=== PATIENT | male | born 1980 | race Caucasian/White ===

== ENCOUNTER 2022-07-18 08:00 | Outpatient (RCR) | payer OTHER, SELFPAY ==
[2022-07-04 11:55] VITALS: BP 112/70; PULSE 96; TEMP 36.9
[2022-07-04 12:22] VITALS: BMI 31.1
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
[2022-07-04 15:31] LABS: Amphetamine Screen Urine Not Detected (Not Detect); Barbiturates, Urine Not Detected (Not Detect); Benzodiazepines Screen Urine Not Detected (Not Detect); Cannabinoid Screen Urine Not Detected (Not Detect); Cocaine Screen Urine Not Detected (Not Detect); Fentanyl, urine Not Detected (Not Detect); Opiate Screen Urine Not Detected (Not Detect); Phencyclidine Screen Urine Not Detected (Not Detect)
--- NOTE | 2022-07-05 15:56 | HO.PHPIOP ---
Case opened in treatment team.
--- NOTE | 2022-07-06 14:43 | HO.PHPIOP ---
Met with pt to review schedule and treatment plan.
--- NOTE | 2022-07-10 12:24 | P.PNPSP_ITS ---
Subjective Subjective Date of Service: 07/10/22 Reason For Visit: severe major depression Medical Problems Affecting Mental Status: No Interim History: Continues with depressed mood, but slightly improved. describes as, ?a little bit better, I have a glimmer of hope now ?. No SI/HI, no safety concerns. No side effects from lamotrigine. Needs a letter for short-term disability/work. Finding groups helpful. Medication Compliance: Yes Side effects from medications: No Attending Groups: Yes Review of Systems Acute medical concerns: No Medical Review of Systems: unchanged Review of Systems Review of Systems Yes all other systems are reviewed and are negative Constitutional: Reports no additional constitutional complaints Mental Status Exam Mental Status Exam Narrative: NAD Patient Appearance: Well Grooomed Patient Orientation: Person, Place, Time and Situation Level of Consciousness: Appropriate and Alert Patient Behavior: Appropriate and Good Eye Contact Mood Description: Depressed Affect Description: Depressed Patient Cognition Impaired: No Ability to Follow Directions: Good Speech Pattern: Clear and Appropriate Memory Description: Intact Hallucinations: None Delusions: Not Present Thought Process: Intact Thought Content: positive for Intact and positive for Obsessional Thoughts Depressive Symptoms: Increased Anxiety, Diff. Making Decisions, Sleeping More Than Usual, Loss of Int. in Activity, Isolating-Friends/Family, Feelings of Guilt, Unhappiness, Increased Fatigue, Loss of Energy and Difficulty Concentrating Judgement: Fair Diagnostics Vital Signs (24Hr): BMI result Body Mass Index 31.1 Assessment & Plan Assessment & Plan (1) Major depressive disorder, recurrent severe without psychotic features: Status: Acute Code(s): F33.2 - Major depressive disorder, recurrent severe without psychotic features Assessment and Plan: Continues with depressed mood, but slightly improved. describes as, ?a little bit better, I have a glimmer of hope now ?. No SI/HI, no safety concerns. Less obsessive thoughts. No side effects from lamotrigine, willing to continue with titration upward. Dosing schedule reviewed. Discussed Abilify and Seroquel, as they are both in same medication class. He is finding them both useful at this time, we discussed lowering dose of Abilify. He would rather remain on this dose at present, as he is beginning to feel slight improvement. No side effects reported. No crying spells reported. (2) Alcohol use disorder, severe, in sustained remission: Status: Acute Code(s): F10.21 - Alcohol dependence, in remission Assessment and Plan: No concerns reported regarding abstinence/recovery. (3) OCD (obsessive compulsive disorder): Status: Acute Code(s): F42.9 - Obsessive-compulsive disorder, unspecified Plan 1. Continue with current [facility] plan of care. 2. Continue with medications as prescribed. 3. Follow-up as per protocol. Patient educated on: diagnosis, medication risk/benefits and therapeutic strategies Informed Consent: understands Reason for contiued partial hosp. stay Substantial Risk for: harm to self and inability to function Certification I certify that partial hospital treatment is medically necessary due to the symptoms and problems resulting from the patient's mental illness and the failure to treat the patient at the partial hospital level of care would likely result in the patient requiring inpatient psychiatric care which could not be prevented at a less intensive level of care. Total time managing care of this patient today _20___ minutes. Discharge Plan Discharge Attending provider: Kike David Medications: New lamotrigine 25 mg tablet 25 mg PO DAILY 14 Days Qty: 14 0RF lorazepam 0.5 mg tablet 0.5 mg PO TID PRN (Reason: anxiety) Qty: 42 0RF bupropion HCl [Wellbutrin XL] 300 mg tablet extended release 24 hr 300 mg PO QAM Qty: 14 0RF quetiapine 300 mg tablet 300 mg PO BEDTIME Qty: 14 0RF lamotrigine 25 mg tablet 50 mg PO DAILY 14 Days Qty: 28 0RF Rx Instructions: AFTER Completion of lamotrigine 25mg daily for 14 days, START lamotrigine 50mg daily for 14 days. lamotrigine 100 mg tablet 100 mg PO DAILY Qty: 30 0RF Rx Instructions: AFTER Completion of lamotrigine 50mg daily for 14 days, START lamotrigine 100mg daily No Action aripiprazole 10 mg tablet 1 tab PO DAILY Stand Alone Forms: Patient Portal Discharge page Patient Education: Lamotrigine (By mouth)
--- NOTE | 2022-07-18 15:54 | P.PNPSP_ITS ---
Subjective Subjective Date of Service: 07/18/22 Reason For Visit: severe major depression Medical Problems Affecting Mental Status: No Interim History: Patient feels overwhelmed. Reports SI in his driveway last night, with the plan. Reports he did not act on it, continues with passive SI, no intent or plan. Rates depression as 8 or 9 on a scale 1-10. Poor sleep, anhedonia. Reports OCD symptoms subsiding. Medication Compliance: Yes Side effects from medications: No Attending Groups: Yes Review of Systems Acute medical concerns: No Medical Review of Systems: unchanged Review of Systems Review of Systems Yes all other systems are reviewed and are negative Constitutional: Reports no additional constitutional complaints Mental Status Exam Mental Status Exam Narrative: Tearful, crying throughout encounter. Passive SI, no intent or plan. Reports did have plan last evening, did not act. Reports that he feels safe today. Patient Appearance: Well Grooomed Patient Orientation: Person, Place, Time and Situation Level of Consciousness: Appropriate Patient Behavior: Appropriate, Anxious, Good Eye Contact and Crying Mood Description: Depressed Affect Description: Depressed and Anxious Patient Cognition Impaired: No Ability to Follow Directions: Good Speech Pattern: Clear and Appropriate Memory Description: Intact Hallucinations: None Delusions: Not Present Thought Process: Intact Thought Content: positive for Intact, positive for Obsessional Thoughts and positive for Suicidal Ideation (Passive, no intent or plan.) Depressive Symptoms: Increased Anxiety, Diff. Making Decisions, Sleeping More Than Usual, Loss of Int. in Activity, Feelings of Guilt, Unhappiness, Increased Fatigue, Loss of Energy and Difficulty Concentrating Judgement: Good Diagnostics Vital Signs (24Hr): BMI result Body Mass Index 31.1 Assessment & Plan Assessment & Plan (1) Major depressive disorder, recurrent severe without psychotic features: Status: Acute Code(s): F33.2 - Major depressive disorder, recurrent severe without psychotic features Assessment and Plan: Continues with depressed mood an affect, crying. Feels overwhelmed. Discussed possible crisis eval. He states that although he did have thoughts of SI last evening with the plan, states that he did not have any intention. States that he does feel safe today, although continues with some passive SI. Saw his psychiatrist yesterday, she kept him on same medications for time being. Has therapy appointment set up for Saturday. We discussed possibility of returning to program if continues to feel overwhelmed and depressed, or crisis of al for possible inpatient stay. He states that he has the crisis number, and that if any time he feels unsafe, he will call them or come to the ER for evaluation. Reports that he does feel safe for discharge from [facility] at this time. (2) Alcohol use disorder, severe, in sustained remission: Status: Acute Code(s): F10.21 - Alcohol dependence, in remission Assessment and Plan: Has been participating in substance use groups while here. (3) OCD (obsessive compulsive disorder): Status: Acute Code(s): F42.9 - Obsessive-compulsive disorder, unspecified Assessment and Plan: Reports that OCD has lessened. Plan 1. Patient discharging from [facility] at this time, appears stable. 2. Patient to follow-up with outpatient providers going forward. 3. Patient was agreeable to calling crisis if at any time feels unsafe. Patient educated on: diagnosis, medication risk/benefits and therapeutic strategies Informed Consent: understands Reason for contiued partial hosp. stay Substantial Risk for: stable for discharge Certification I certify that partial hospital treatment is medically necessary due to the symptoms and problems resulting from the patient's mental illness and the failure to treat the patient at the partial hospital level of care would likely result in the patient requiring inpatient psychiatric care which could not be prevented at a less intensive level of care. Total time managing care of this patient today _30___ minutes. Discharge Plan Discharge Attending provider: Kike David Additional Instructions: [facility] walk in clinic [address] [place] [address]. Call for appointment. [phone]. Medications: New lamotrigine 25 mg tablet 25 mg PO DAILY 14 Days Qty: 14 0RF lorazepam 0.5 mg tablet 0.5 mg PO TID PRN (Reason: anxiety) Qty: 42 0RF bupropion HCl [Wellbutrin XL] 300 mg tablet extended release 24 hr 300 mg PO QAM Qty: 14 0RF quetiapine 300 mg tablet 300 mg PO BEDTIME Qty: 14 0RF lamotrigine 25 mg tablet 50 mg PO DAILY 14 Days Qty: 28 0RF Rx Instructions: AFTER Completion of lamotrigine 25mg daily for 14 days, START lamotrigine 50mg daily for 14 days. lamotrigine 100 mg tablet 100 mg PO DAILY Qty: 30 0RF Rx Instructions: AFTER Completion of lamotrigine 50mg daily for 14 days, START lamotrigine 100mg daily bupropion HCl 300 mg tablet extended release 24 hr 300 mg PO QAM Qty: 30 0RF quetiapine 300 mg tablet 300 mg PO BEDTIME Qty: 30 0RF No Action aripiprazole 10 mg tablet 1 tab PO DAILY Stand Alone Forms: Patient Portal Discharge page Patient Education: Lamotrigine (By mouth), Depression (DC), Obsessive Compulsive Disorder (DC)
== END 2022-07-18 23:59 | disposition home or self-care (01) ==
LOC: HO.PHPA 08:00
PROVIDERS: Nurse Practitioner Psychiatric/Mental Health; Visit Provider Psychiatry & Neurology Psychiatry
DX: F33.2 Major depressive disorder, recurrent severe without psychotic features (principal); F10.21 Alcohol dependence, in remission; Z79.899 Other long term (current) drug therapy
CPT/HCPCS: 80307; 90791; 90853

== ENCOUNTER 2022-07-20 14:32 | Inpatient (IN) | payer OTHER, SELFPAY ==
--- NOTE | 2022-07-20 | ECG_ITS ---
Test Reason : MEDICAL CLEARANCE Blood Pressure : / mmHG Vent. Rate : 072 BPM Atrial Rate : 072 BPM P-R Int : 158 ms QRS Dur : 090 ms QT Int : 392 ms P-R-T Axes : 027 -09 024 degrees QTc Int : 429 ms Normal sinus rhythm Normal ECG No previous ECGs available Referred By: Mara Osman Electronically Signed By:Bret Medellin
[2022-07-20 14:47] VITALS: BP 160/99; PULSE 87; RESP 16; TEMP 36.8; O2SAT 98; BMI 30.7
--- NOTE | 2022-07-20 15:21 | ED.PSYCH ---
HPI - Psych General Chief Complaint: Psychiatric Symptoms Stated Complaint: Crisis Eval Time Seen by Provider: 07/20/22 14:51 Source: patient Mode of arrival: ambulatory Limitations: no limitations History of Present Illness HPI Narrative: 41-year-old male with a history of OCD, depression, anxiety presents with depression, suicidal thoughts. Patient reports he had plans to hook his garden hose up to the exhaust of his car. No HI, hallucinations, substance use. No physical complaints. Patient reports he was admitted Silvina Jimenez to [facility] in the being of June. He has been doing partial since his release. They did increase the dosage of his Seroquel, Wellbutrin, Abilify a Silvina Jimenez. They also added Lamictal several weeks ago for continued symptoms of depression. Related Data Home Medications Medication Instructions Recorded Confirmed aripiprazole 10 mg tablet 1 tab PO DAILY 07/04/22 07/04/22 Previous Rx's Medication Instructions Recorded bupropion HCl 300 mg 24 hr tablet, 300 mg PO QAM #14 tabs 07/04/22 extended release (Wellbutrin XL) lamotrigine 25 mg tablet 25 mg PO DAILY 14 days #14 tabs 07/04/22 lorazepam 0.5 mg tablet 0.5 mg PO TID PRN anxiety #42 tabs 07/04/22 quetiapine 300 mg tablet 300 mg PO BEDTIME #14 tabs 07/04/22 lamotrigine 100 mg tablet 100 mg PO DAILY #30 tabs 07/10/22 lamotrigine 25 mg tablet 50 mg PO DAILY 14 days #28 tabs 07/10/22 bupropion HCl 300 mg 24 hr tablet, 300 mg PO QAM #30 tabs 07/13/22 extended release quetiapine 300 mg tablet 300 mg PO BEDTIME #30 tabs 07/13/22 Allergies Allergy/AdvReac Type Severity Reaction Status Date / Time Penicillins [PCN] Allergy Rash Verified 07/04/22 11:54 Review of Systems Review of Systems: Yes all other systems are reviewed and are negative Constitutional: Constitutional: Reports no additional constitutional complaints, Denies body ache(s), Denies chills, Denies fever(s), Denies headache(s) and Denies weakness Eyes: Eyes: Reports no additional eye complaints and Denies change in vision ENT: Reports system reviewed and no additional complaints, except as documented, Denies dizziness, Denies headache(s), Denies nasal congestion, Denies nasal discharge and Denies neck pain Cardiovascular: Cardiovascular: Reports no additional cardiovascular complaints, Denies chest pain, Denies leg edema and Denies dyspnea Respiratory: Respiratory: Reports no additional respiratory complaints, Denies cough and Denies dyspnea Gastrointestinal: Gastrointestinal: Reports no additional gastrointestinal complaints, Denies abdominal pain, Denies diarrhea, Denies nausea and Denies vomiting Genitourinary: Genitourinary: Denies urinary incontinence Musculoskeletal: Musculoskeletal: Reports no additional musculoskeletal complaints, Denies back pain, Denies arthralgias, Denies joint swelling, Denies neck pain, Denies numbness and Denies tingling Integumentary/Breasts: Skin/Breast: Reports system reviewed and no additional complaints, except as docu and Denies rash Neurologic: Reports system reviewed and no additional complaints, except as documented, Denies Abnormal speech present, Denies dizziness, Denies headache(s), Denies numbness, Denies tingling and Denies weakness Psychiatric: Psychiatric: Reports anxiety, Reports depression, Denies homicidal ideation and Reports suicidal ideation [facility] Past Medical History Attestation statement: The following information was validated with the patient. Source: old records reviewed and nursing notes reviewed Medical History Abdominal hernia No known health problems Social History Social History Household Members: Significant Other and Children Tobacco use type: Smokeless Tobacco Advance Directives: No Advance Directives Information Provided: No Physical Exam Vital Signs: Vital Signs: Last Vital Signs Temp 97.6 F 07/20/22 17:30 Pulse 89 07/20/22 17:30 Resp 16 07/20/22 17:30 BP 174/94 H 07/20/22 17:30 Pulse Ox 98 07/20/22 17:30 O2 Del Method 07/20/22 17:30 BMI result Body Mass Index 30.7 Const: General: cooperative, healthy appearing, comfortable and no acute distress Orientation/consciousness: patient oriented x3 Limitations: no limitations HEENT: Head: Yes normal to inspection Ears: hearing grossly normal bilaterally General nose exam: Normal external nose present Face and sinus: Yes normal facial exam Mouth: Normal oral and palatal mucosa present Throat: Yes posterior oropharynx normal Eyes: General: appearance normal, both eyes and all related structures Pupils: Equal, round and reactive pupils present Neck: Neck: Yes normal visual inspection Chest: Chest palpation & inspection: normal inspection of the chest Resp: Effort & Inspection: normal respiratory effort Auscultation: clear to auscultation bilaterally Cardio: Rate: regular rate Rhythm: regular rhythm Peripheral pulses: Peripheral pulses 2+ throughout GI: Inspection: Yes normal to inspection Palpation (GI): Soft to palpation and nontender Auscultation: normal bowel sounds Back/Spine/Pelvis: Thoracic/Lumbar Spine: thoracic and lumbar spine normal to inspection Skin: General skin exam: no rashes or lesions noted Neuro: General: patient oriented x3, no focal motor deficits and normal sensation to monofilament Cranial nerves: Yes Equal, round and reactive pupils present Cognition (Neuro): normal cognition Speech: No Abnormal speech present Gait exam (Neuro): Normal gait present Motor exam (neuro): 5/5 motor strength present throughout Extrem: General: Yes normal to inspection Course Course Course Narrative: ion Medical Decision Making Medical Decision Making [facility] Narrative: 41-year-old male with a history of OCD, depression, anxiety presents with reports of increasing depression and suicidal thoughts. No physical complaints. No concern for acute ingestion or trauma. Will obtain labs, drug screen, COVID screen Patient will need crisis consultation once medically cleared Differential Diagnosis Differential Diagnoses: The differential diagnosis associated with the presentation includes Depression Consult Healthcare Provider Management of the patient was discussed with: Behavioral Health Provider Patient was seen by crisis. Plan is for Section 12 bed search. Patient placed in physician observation pending disposit Lab Data [facility] Lab Attestation statement: I reviewed the patient's lab results. 07/20/22 15:37 Labs: Lab Results 07/20/22 07/20/22 07/20/22 Range/Units 15:37 15:37 15:54 Sodium 140 (135-145) mmol/L Potassium 4.1 (3.3-5.1) mmol/L Chloride 106 (96-108) mmol/L Carbon Dioxide 26 (22-29) mmol/L Anion Gap 12 (12-20) BUN 13 (9-16) mg/dL Creatinine 0.94 (0.5-1.4) mg/dL Estim Creat Clear Calc 125.7 Estimated GFR > 60 Random Glucose 88 (60-115) mg/dL Calcium 9.4 (8.4-10.2) mg/dL Total Bilirubin 0.9 (0.0-1.0) mg/dL Direct Bilirubin 0.2 (0.0-0.5) mg/dL AST 28 (5-37) U/L ALT 55 H (0-40) U/L Alkaline Phosphatase 98 (39-117) U/L Total Protein 7.0 (6.5-8.0) g/dL Albumin 4.4 (3.5-5.0) g/dL Salicylates < 5.0 L (15-30) mg/dL Urine Opiates Screen Not Detected (Not Detect) Urine Fentanyl Screen Not Detected (Not Detect) Acetaminophen < 17 (<30) mcg/mL Ur Barbiturates Screen Not Detected (Not Detect) Ur Phencyclidine Scrn Not Detected (Not Detect) Ur Amphetamines Screen Not Detected (Not Detect) U Benzodiazepines Scrn Not Detected (Not Detect) Urine Cocaine Screen Not Detected (Not Detect) U Marijuana (THC) Screen Not Detected (Not Detect) Ethyl Alcohol < 10 mg/dL COVID-19 (LEA) Negative (Negative) COVID-19 Clin Com See Note Discharge Plan Discharge Clinical Impression: Major depressive disorder, recurrent severe without psychotic features Patient Disposition: Still a Patient Prescriptions: No Action lamotrigine 25 mg tablet 25 mg PO DAILY 14 Days Qty: 14 0RF lorazepam 0.5 mg tablet 0.5 mg PO TID PRN (Reason: anxiety) Qty: 42 0RF bupropion HCl [Wellbutrin XL] 300 mg tablet extended release 24 hr 300 mg PO QAM Qty: 14 0RF quetiapine 300 mg tablet 300 mg PO BEDTIME Qty: 14 0RF aripiprazole 10 mg tablet 1 tab PO DAILY lamotrigine 25 mg tablet 50 mg PO DAILY 14 Days Qty: 28 0RF Rx Instructions: AFTER Completion of lamotrigine 25mg daily for 14 days, START lamotrigine 50mg daily for 14 days. lamotrigine 100 mg tablet 100 mg PO DAILY Qty: 30 0RF Rx Instructions: AFTER Completion of lamotrigine 50mg daily for 14 days, START lamotrigine 100mg daily bupropion HCl 300 mg tablet extended release 24 hr 300 mg PO QAM Qty: 30 0RF quetiapine 300 mg tablet 300 mg PO BEDTIME Qty: 30 0RF Interventions: [place]-Suicide Risk Severity Scale Last Done: 07/20/22 17:53
[2022-07-20 15:55] LABS: COVID-19 Test Negative (Negative); IDNOW Serial# 6674DD1D
[2022-07-20 16:04] LABS: Acetaminophen LAB < 17 mcg/mL (<30); Alanine Aminotransferase 55 U/L (0-40); Albumin Level 4.4 g/dL (3.5-5.0); Alkaline Phosphatase 98 U/L (39-117); Anion Gap 12 (12-20); Aspartate Amino Transferase 28 U/L (5-37); Bilirubin Direct 0.2 mg/dL (0.0-0.5); Bilirubin Total 0.9 mg/dL (0.0-1.0); Blood Urea Nitrogen 13 mg/dL (9-16); Calcium 9.4 mg/dL (8.4-10.2); Carbon Dioxide 26 mmol/L (22-29); Chloride 106 mmol/L (96-108); Creatinine Clr Calc Pharmacy 125.7; Estimated Glomerular Filt Rate > 60; Ethanol < 10 mg/dL; Glucose Random 88 mg/dL (60-115); Potassium 4.1 mmol/L (3.3-5.1); Salicylate < 5.0 mg/dL (15-30); Sodium 140 mmol/L (135-145)
[2022-07-20 16:14] LABS: Amphetamine Screen Urine Not Detected (Not Detect); Barbiturates, Urine Not Detected (Not Detect); Benzodiazepines Screen Urine Not Detected (Not Detect); Cannabinoid Screen Urine Not Detected (Not Detect); Cocaine Screen Urine Not Detected (Not Detect); Fentanyl, urine Not Detected (Not Detect); Opiate Screen Urine Not Detected (Not Detect); Phencyclidine Screen Urine Not Detected (Not Detect)
[2022-07-20 17:30] VITALS: BP 174/94; PULSE 89; RESP 16; TEMP 36.4; O2SAT 98
[2022-07-20] MEDS: QUEtiapine Fumarate 100 MG TABLET 150 MG PO (20:28)
[2022-07-20] MEDS: Nicotine Polacrilex 2 MG GUM 4 MG BUCCAL (20:28)
[2022-07-20 21:26] LABS: MANUAL DIFF FLAG NO
[2022-07-20 21:27] LABS: Basophils Percent Auto 0.4 % (0-2); Eosinophils Absolute Auto 0.2 X10*3/uL (0.0-0.4); Hematocrit 46.1 % (42.0-52.0); Hemoglobin 16.7 g/dl (14.0-18.0); Imm Gran Abs Auto 0.01 X10*3/uL (0.00-0.03); Imm Gran Pct Auto 0.1 % (0.0-0.4); Lymphocytes Absolute Auto 2.1 X10*3/uL (1.2-4.9); Lymphocytes Percent Auto 28.2 % (20-40); Mean Corpuscular HGB Conc 36.2 g/dl (31.0-36.0); Mean Corpuscular Hemoglobin 31.4 pg (27.0-33.0); Mean Corpuscular Volume 86.7 fL (80.0-98.0); Mean Platelet Volume 9.8 fL (9.4-12.4); Monocytes Absolute Auto 0.5 X10*3/uL (0.1-1.2); Monocytes Percent Auto 7.1 % (2-11); Neutrophils Absolute Auto 4.6 x10*3/uL (2.0-8.3); Neutrophils Percent Auto 62.2 % (45-73); Platelet Count 190 X10*3/uL (160-400); Red Blood Count 5.32 X10*6/uL (4.60-5.80); Red Cell Distribution Width 11.4 % (11.0-16.0); White Blood Count 7.4 X10*3/uL (4.8-10.8)
--- OUTSIDE RECORDS SUMMARY | 2022-07-20 21:51 | XMS_ITS | Continuity of Care Document ---
:1980 Author Organization [facility] Address [address] [place] [address]- Care Team Providers Name Role Phone Silvia VANG, Lisa Jain Primary Care Physician Encounter [facility] [id number] Date(s): 07[facility] [address] [place] [address] Attending Physician: Romana Gutiérrez Admitting Physician: Romana Gutiérrez Referring Physician: AdmtrRomana Allergies, Adverse Reactions, Alerts Substance Reaction Severity Status penicillin V potassium rash Active Immunizations Given and Recorded Vaccine Date Status Refusal Reason influenza virus vaccine, inactivated 05/19/14 Given influenza virus vaccine, inactivated 05/02/13 Given Tet/Diphth/Acel, Pertussis (oldterm) 09/24/11 Given Medications SEROquel 200 mg oral tablet 200 mg, 1, tablet, By Mouth, Daily at bedtime, # 30 tablet, Refills 3, Tot. Refills 3, Maintenance, 06/10/17 15:34:51, Route to Pharmacy Electronically, [id number], [facility] Start Date: 06/10/17 Stop Date: 10/08/17 Status: OrderedWellbutrin SR 150 mg/12 hours oral tablet, extended release 1 tablet = 150 mg, By Mouth, Daily, # 30 tablet, 3 Refills, Maintenance, 06/10/17 15:34:53 Start Date: 06/10/17 Stop Date: 10/08/17 Status: Ordered Problem List Condition Effective Dates Status Health Status Informant Adjustment Disorder with Mixed Anxiety Active and Depressed Mood(Confirmed) Allergic rhinitis(Confirmed) Active Anxiety depression(Confirmed) Active 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
--- OUTSIDE RECORDS SUMMARY | 2022-07-20 21:51 | XMS_ITS | Continuity of Care Document ---
:1980 Author Organization [facility] Address [address] [place] [id number]- Care Team Providers Name Role Phone Silvia VANG, Lisa Jian Primary Care Physician Encounter [facility] Date(s): 06/15/19 - 06/15/[address] [address]- [facility] Encounter Diagnosis Ventral hernia (Final) - 06/15/19 Ventral hernia (Final) - 06/15/19 Discharge Disposition: A-D/C Home Attending Physician: Tres Castillo MD Admitting Physician: Tres Castillo MD Referring Physician: Not on Staff, Referring MD Allergies, Adverse Reactions, Alerts Substance Reaction Severity [...] Maintenance, 06/10/17 15:34:51, Route to Pharmacy Electronically, [id number], [facility] Start Date: 06/10/17 [...] remission(Confirmed) Depressive disorder, major, recurrent Active episode(Confirmed) Vital Signs Most recent to oldest [Reference Range]: 1 2 Height 178 cm 178 cm (06/15/19 2:40 PM) (06/15/19 2:30 PM) Weight 101.2 kg (06/15/19 2:40 PM) Oxygen Saturation [94-100 %] 98 % 100 % (06/15/19 2:40 PM) (06/15/19 2:29 PM) Pulse Rate [55-90 bpm] 86 bpm 95 bpm (06/15/19 2:40 PM) *H* (06/15/19 2:29 PM) Body Mass Index [18.5-24.99] 31.94 *>HHI* (06/15/19 2:40 PM) Blood Pressure [90-138/55-84 mm Hg] 160/106 mm Hg *H* (06/15/19 2:40 PM) Respiratory Rate [16-30 br/min] 16 br/min 20 br/mi n (06/15/19 4:57 PM) (06/15/19 2:40 PM) Temperature [96.8-100.4 DegF] 97.7 DegF (06/15/19 2:40 PM) Mode of Delivery (Oxygen) Room air Room air (06/15/19 2:40 PM) (06/15/19 2:29 PM) Blood pressure sites Arm, right (06/15/19 2:40 PM) Temperature Route Oral (06/15/19 2:40 PM) Dry Weight 101.2 kg (06/15/19 2:40 PM) Weight Obtained Via Standing scale (06/15/19 2:40 PM) Dry Weight Obtained Via Standing scale (06/15/19 2:40 PM) Social History Social History Type Response Smoking Status Never smoker; Other: smokele ss; entered on: 07/02/14 Sex
--- OUTSIDE RECORDS SUMMARY | 2022-07-20 21:51 | XMS_ITS ---
:1980 Author Care Team Providers Name Role Phone [phone] Primary Care Provider Unavailable Allergies Code Code System Name Reaction Severity Status Onset Penicillins Rash ? Active ? Medications Name Status Start Date Stop Date ? ? Bactrim DS 800 mg-160 mg tablet Active ? Not available Take 1 tablet every 12 hours by oral route for 3 days. Notes: seraquil, prozac Problems Name Status Onset Date Source ? Depressive Disorder Active 12/13/2016 ? Procedures Notes: none reported Results Lab Results None recorded. Past Encounters None recorded. Social History Tobacco Smoking Status Current Every Day Smoker Notes: pt is using nicotine gum Vaccine List Vaccine Type Td (adult), adsorbed 12/13/2016?0.5 mL Plan of Care Reminders Provider Appointments None recorded. ? ? Lab None recorded. ? ? Referral None recorded. ? ? Procedures None recorded. ? ? Surgeries None recorded. ? ? Imaging None recorded. ? ? Vitals Height Weight BMI Blood Pressure 5 ft 11 in 220 lbs 30.7 kg/m2 124/80 mm[Hg]
--- OUTSIDE RECORDS SUMMARY | 2022-07-20 21:51 | XMS_ITS | Continuity of Care Document ---
:1980 Author Organization [facility] Address [address] [place] [address]- Care Team Providers Name Role Phone Lisa Vega MD Primary Care Physician Encounter [facility] NBR [id number] Date(s): 10/23/20 - 10/23/[address] [address]- Discharge Disposition: A-D/C Home Attending Physician: Toni Damico MD Admitting Physician: Toni Damico MD Referring Physician: Not on Staff, Referring [...] Maintenance, 06/10/17 15:34:51, Route to Pharmacy Electronically, [id number], [facility] Start Date: 06/10/17 [...] remission(Confirmed) Depressive disorder, major, recurrent Active episode(Confirmed) Results Radiology Reports Exam Date Time Procedure Performing Provider Status 10/23/20 7:06 PM Chest 2 Views Frontal and Lat Alcira Escoto; Cathy pena (Verified) Notes:(Chest 2 Views Frontal and Lat) Reason For Exam: SOB;CoughRESULT: Chest 2 Views Frontal and Lat Chest 2 Views Frontal and Lat Reason: Cough; SOB; Clinical Question(s): Pneumonia; Special Instructions: This is a protocol film and radiologist should call any findings to the Charge Nurse or appropriate provider COMPARISON: None. FINDINGS: LINES AND TUBES: None. LUNGS AND PLEURA: Clear lungs. Normal pulmonary vascularity. No pleural effusion. No pneumothorax. HEART, MEDIASTINUM AND CHELA: Heart is normal in size. Normal upper mediastinal and hilar contour. BONES AND SOFT TISSUES: No acute abnormality. Several tiny hyperdense foci just superior to the medial clavicular head, noted in the anterior chest on the lateral images, may be within the skin. IMPRESSION: No acute abnormality. WSN: [id number] Ordering Physician: Toni Damico Dictated By: Fred Blas MD Dictated Date/Time: 10/23/20 7:41 pm Reviewed By: Fred Blas MD Signed By: Fred Blas MD Signed Date/Time: 10/23/20 7:41 pm Transcribed By: KIERA Transcribed Date/Time: 10/23/20 7:39 pm Vital Signs Most recent to oldest 1 2 3 [Reference Range]: Height 178 cm 178 cm 178 cm (10/23/20 10:12 PM) (10/23/20 7:25 PM) (10/23/20 7: 25 PM) Weight 96.7 kg 96.7 kg 96.7 kg (10/23/20 10:12 PM) (10/23/20 7:25 PM) (10/23/20 7: 25 PM) Oxygen Saturation [94-100 %] 98 % 98 % (10/23/20 10:12 PM) (10/23/20 7:25 PM) Pulse Rate [55-90 bpm] 65 bpm 70 bpm (10/23/20 10:12 PM) (10/23/20 7:25 PM) Body Mass Index [18.5-24.99] 30.52 30.52 *>HHI* *>HHI* (10/23/20 10:12 PM) (10/23/20 7:25 PM) Blood Pressure [90-138/55-84 129/83 mm Hg 158/89 mm Hg mm Hg] (10/23/20 10:12 PM) *H* (10/23/20 7:25 PM) Respiratory Rate [16-30 15 br/min 16 br/min br/min] *L* (10/23/20 7:25 PM) (10/23/20 10:12 PM) Temperature [96.8-100.4 DegF] 97.9 DegF 97.8 DegF (10/23/20 10:12 PM) (10/23/20 7:25 PM) Mode of Delivery (Oxygen) Room air Room air (10/23/20 10:12 PM) (10/23/20 7:25 PM) Blood pressure sites Arm, left (10/23/20 7:25 PM) Temperature Route Oral Temporal (10/23/20 10:12 PM) (10/23/20 7:25 PM) Dry Weight 96.7 kg 96.7 kg 96.7 kg (10/23/20 10:12 PM) (10/23/20 7:25 PM) (10/23/20 7: 25 PM) Social History Social History Type Response Smoking Status Never smoker; Other: smokele ss; entered on: 07/02/14 Sex
--- OUTSIDE RECORDS SUMMARY | 2022-07-20 21:51 | XMS_ITS | Continuity of Care Document ---
:1980 Author Organization [facility] Address [address] [place] [address]- Care Team Providers Name Role Phone Lisa Vega MD Primary Care Physician [phone] Encounter [facility] NBR [id number] Date(s): 07/22/19 - 07/22/[address] [address]- [facility] Discharge Disposition: A-D/C Home Attending Physician: Guera Suarez MD Admitting Physician: Guera Suarez MD Referring Physician: Guera Suarez MD Allergies, Adverse Reactions, Alerts Substance Reaction Severity Status penicillin V potassium rash Active Immunizations Given and Recorded Vaccine Date Status Refusal Reason influenza virus vaccine, inactivated 05/19/14 Given influenza virus vaccine, inactivated 05/02/13 Given Tet/Diphth/Acel, Pertussis (oldterm) 09/24/11 Given Medications acetaminophen 325 mg oral tablet 650 mg, By Mouth, Every 6 hours, PRN, not to exceed 4000 mg/day, # 30 tablet, Refills 0, Tot. Refills 0, Acute 08/05/19 9:00:00 EST, Pain , Moderate, 07/22/19 11:17:00 EST, Print Requisition Start Date: 07/22/19 Stop Date: 08/05/19 Status: Orderedibuprofen 600 mg oral tablet 600 mg, By Mouth, 3 times a day, PRN, not to exceed 3200 mg/day with food or milk, # 20 tablet, Refills 0, Tot. Refills 0, Acute 08/05/19 9:00:00 EST, Pain , Mild, 07/22/19 11:17:00 EST, Print Requisition Start Date: 07/22/19 Stop Date: 08/05/19 Status: OrderedoxyCODONE 5 mg oral tablet 5 mg, 1, tablet, By Mouth, Every 6 hours, PRN, # 12 tablet, Refills 0, Tot. Refills 0, Acute 08/05/19 9:00:00 EST, Pain , Severe, 07/22/19 11:17:00 EST, Print Requisition, Partial fill upon patient request Start Date: 07/22/19 Stop Date: 08/05/19 Status: OrderedSEROquel 200 mg oral tablet 200 mg, 1, tablet, By Mouth, Daily at bedtime, # 30 tablet, Refills 3, Tot. Refills 3, Maintenance, 06/10/17 15:34:51, Route to Pharmacy Electronically, [id number], [facility] Start Date: 06/10/17 [...] remission(Confirmed) Depressive disorder, major, recurrent Active episode(Confirmed) Procedures Procedure Date Related Diagnosis Body Site Status Open repair of ventral hernia 07/22/19 Completed Vital Signs Most recent to oldest 1 2 3 [Reference Range]: Height 178 cm (07/22/19 8:16 AM) Oxygen Saturation [94-100 %] 97 % 95 % 99 % (07/22/19 11:47 AM) (07/22/19 11:45 AM) (07/22/19 1 1:40 AM) Blood Pressure [90-138/55-84 146/92 mm Hg 144/88 mm Hg 135 /82 mm Hg mm Hg] *H* *H* (07/22/19 11:40 A M) (07/22/19 11:47 AM) (07/22/19 11:45 AM) Respiratory Rate [16-30 12 br/min 15 br/min 15 br/mi n br/min] *L* *L* *L* (07/22/19 11:47 AM) (07/22/19 11:45 AM) (07/22/19 1 1:40 AM) Temperature [96.8-100.4 98.5 DegF 97.1 DegF DegF] (07/22/19 10:55 AM) (07/22/19 8:16 AM) Liters per Minute 6 L/min (07/22/19 10:55 AM) Mode of Delivery (Oxygen) Room air Room air Room a ir (07/22/19 11:47 AM) (07/22/19 11:45 AM) (07/22/19 1 1:23 AM) Blood pressure sites Arm, left (07/22/19 8:16 AM) Temperature Route Temporal Temporal (07/22/19 10:55 AM) (07/22/19 8:16 AM) Dry Weight 102.5 kg (07/22/19 8:16 AM) Social History Social History Type Response Smoking Status Never smoker; Other: smokele ss; entered on: 07/02/14 Sex
[2022-07-20 23:15] VITALS: BP 158/96; PULSE 84; RESP 18; TEMP 36.6; O2SAT 95
--- NOTE | 2022-07-21 01:12 | PC.ADMIT ---
Pt is a 41 year old male that presented to [facility] with depression and suicidal thoughts. Pt reports he had plans to hook his garden hose up to the exhaust of his car. Pt states he was admitted to [facility] in the beginning of June for SI with a plan to hook his garden hose up to the exhaust of his car. He reported he was a step down to partial and was discharged on Saturday. He reports being unable to get up in the morning and sleeping more than usual. He stated he is concerned with his finances as he has 4 to 5 people depending on him. Patient signed in CV. Covid negative. Patient reports anxiety 2/10 with depression 8/10. Patient reports suicidal ideation but has no active plan. Patient denies any or VH. Patient placed on 15 minute visual safety checks.
[2022-07-21 08:15] VITALS: BP 142/90; PULSE 87; RESP 18; TEMP 36.6; O2SAT 96
[2022-07-21] MEDS: LORazepam 0.5 MG TABLET PO ×2 (08:52→16:11)
[2022-07-21] MEDS: lamoTRIgine 25 MG TABLET 50 MG PO (08:53)
[2022-07-21] MEDS: QUEtiapine Fumarate 100 MG TABLET 150 MG PO (08:54)
[2022-07-21] MEDS: ARIPiprazole 10 MG TABLET PO (08:57)
[2022-07-21] MEDS: buPROPion HCl XL 300 MG TAB.ER.24H PO (08:57)
[2022-07-21] MEDS: Nicotine Polacrilex 2 MG GUM 4 MG BUCCAL ×2 (13:39→18:38)
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
[2022-07-21 20:45] VITALS: BP 140/93; PULSE 95; RESP 16; TEMP 36.4; O2SAT 97
[2022-07-21] MEDS: QUEtiapine Fumarate 300 MG TABLET PO (21:04)
[2022-07-22 08:10] VITALS: BP 134/84; PULSE 89; RESP 22; TEMP 36.5; O2SAT 95
[2022-07-22] MEDS: lamoTRIgine 25 MG TABLET 50 MG PO (08:15)
[2022-07-22] MEDS: LORazepam 0.5 MG TABLET PO ×2 (08:15→15:33)
[2022-07-22] MEDS: QUEtiapine Fumarate 100 MG TABLET PO (08:16)
--- NOTE | 2022-07-22 11:40 | P.PNPSI_ITS ---
Subjective Subjective Date of Service: 07/22/22 Reason For Visit: SI Subjective Notes: Conditional Voluntary Medical Problems Affecting Mental Status: No Interim History: Feels that seroquel in daytime helpful with pit in stomach ie less anxious and slightly less depressed. Sleep OK. Less intense SI. No psychosis. Family will visit today and looking forward to same. Hopeful he is on right track treatment carpio, and also mentioned ECT again if things get worse and will further discuss it with primary team Medication Compliance: Yes Side effects from medications: No Attending Groups: Yes Review of Systems Acute medical concerns: No Review of Systems Review of Systems Yes all other systems are reviewed and are negative Mental Status Exam Mental Status Exam Narrative: Pleasant, hospital clothing, organized, less anxious, less depressed, less intense SI, feels safe on unit. No psychosis, agitation or aggression. Insight and judgment fair Diagnostics Vital Signs (24Hr): Vital Signs - 24 hr 07/21/22 20:45 07/22/22 08:10 Temperature 97.6 F 97.7 F Pulse Rate 95 89 Respiratory Rate 16 22 H Blood Pressure 140/93 H 134/84 Pulse Oximetry 97 95 Oxygen Delivery Method Room Air Room Air BMI result Body Mass Index 30.7 Labs 07/20/22 21:21 07/20/22 15:37 Labs: Laboratory Results - last 48 hr 07/20/22 07/20/22 07/20/22 15:37 15:37 15:54 WBC RBC Hgb Hct MCV MCH MCHC RDW Plt Count MPV Immature Gran % (Auto) Neut % (Auto) Lymph % (Auto) [place] % (Auto) Eos % (Auto) Baso % (Auto) Lymph # (Auto) [place] # (Auto) Eos # (Auto) Baso # (Auto) Abs Immat Gran (auto) Absolute Neuts (auto) Absolute Nucleated RBC Nucleated RBC % (auto) Sodium 140 Potassium 4.1 Chloride 106 Carbon Dioxide 26 Anion Gap 12 BUN 13 Creatinine 0.94 Estim Creat Clear Calc 125.7 Estimated GFR > 60 Random Glucose 88 Calcium 9.4 Total Bilirubin 0.9 Direct Bilirubin 0.2 AST 28 ALT 55 H Alkaline Phosphatase 98 Total Protein 7.0 Albumin 4.4 Salicylates < 5.0 L Urine Opiates Screen Not Detected Urine Fentanyl Screen Not Detected Acetaminophen < 17 Ur Barbiturates Screen Not Detected Ur Phencyclidine Scrn Not Detected Ur Amphetamines Screen Not Detected U Benzodiazepines Scrn Not Detected Urine Cocaine Screen Not Detected U Marijuana (THC) Screen Not Detected Ethyl Alcohol < 10 COVID-19 (LEA) Negative COVID-19 Clin Com See Note 07/20/22 21:21 WBC 7.4 RBC 5.32 Hgb 16.7 Hct 46.1 MCV 86.7 MCH 31.4 MCHC 36.2 H RDW 11.4 Plt Count 190 MPV 9.8 Immature Gran % (Auto) 0.1 Neut % (Auto) 62.2 Lymph % (Auto) 28.2 [place] % (Auto) 7.1 Eos % (Auto) 2.0 Baso % (Auto) 0.4 Lymph # (Auto) 2.1 [place] # (Auto) 0.5 Eos # (Auto) 0.2 Baso # (Auto) 0.0 Abs Immat Gran (auto) 0.01 Absolute Neuts (auto) 4.6 Absolute Nucleated RBC 0.000 Nucleated RBC % (auto) 0.0 Sodium Potassium Chloride Carbon Dioxide Anion Gap BUN Creatinine Estim Creat Clear Calc Estimated GFR Random Glucose Calcium Total Bilirubin Direct Bilirubin AST ALT Alkaline Phosphatase Total Protein Albumin Salicylates Urine Opiates Screen Urine Fentanyl Screen Acetaminophen Ur Barbiturates Screen Ur Phencyclidine Scrn Ur Amphetamines Screen U Benzodiazepines Scrn Urine Cocaine Screen U Marijuana (THC) Screen Ethyl Alcohol COVID-19 (LEA) COVID-19 Clin Com Medications Medications Current Medications Acetaminophen (Acetaminophen 325 Mg Tablet) 650 mg PO Q6H PRN PRN Reason: Headache/Pain Mild Scale (1-3) Al Hydroxide/Mg Hydroxide (Magnesium Hydrox/Alum Hydrox 30 Ml Oral.Susp) 30 ml PO Q6H PRN PRN Reason: Heartburn/Nausea Hydroxyzine HCl (Hydroxyzine Hcl 25 Mg Tablet) 25 mg PO Q6H PRN PRN Reason: Anxiety Lamotrigine (Lamotrigine 25 Mg Tablet) 50 mg PO DAILY YOLIS Last Admin: 07/22/22 08:15 Dose: 50 mg Lorazepam (Lorazepam 0.5 Mg Tablet) 0.5 mg PO TID PRN PRN Reason: Anxiety Last Admin: 07/22/22 08:15 Dose: 0.5 mg Magnesium Hydroxide (Milk Of Magnesia 30 Ml Oral.Susp) 30 ml PO DAILY PRN PRN Reason: Constipation Nicotine Polacrilex (Nicotine Polacrilex 2 Mg Gum) 4 mg BUCCAL Q2H PRN PRN Reason: Nicotine Cravings Last Admin: 07/21/22 18:38 Dose: 4 mg Quetiapine Fumarate (Quetiapine Fumarate 300 Mg Tablet) 300 mg PO BEDTIME [facility] Last Admin: 07/21/22 21:04 Dose: 300 mg Quetiapine Fumarate (Quetiapine Fumarate 100 Mg Tablet) 100 mg PO DAILY [facility] Last Admin: 07/22/22 08:16 Dose: 100 mg Trazodone HCl (Trazodone Hcl 50 Mg Tablet) 50 mg PO BEDTIME PRN PRN Reason: Insomnia Allergies Allergies Allergy/AdvReac Type Severity Reaction Status Date / Time Penicillins [PCN] Allergy Rash Verified 07/04/22 11:54 Assessment & Plan Assessment & Plan (1) Major depressive disorder, recurrent severe without psychotic features: Status: Acute Code(s): F33.2 - Major depressive disorder, recurrent severe without psychotic features Plan Worsening MDD with SI despite PHP. Might benefit from ECT. IN meantime will adjust seroquel so its 300mg bedtime (sleep and mood) and 100mg AM (mood and anxiety). No benefit from abilify or wellbutrin will therefore stop both. c/w lamictal 50mg as just increased within last week. 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 ECT might be appropriate Patient educated on: medication risk/benefits Informed Consent: understands Reason for contiued inpatient stay Substantial Risk for: harm to self Time Spent With Patient Time: Total time managing care of this patient today ____ minutes.
[2022-07-22] MEDS: Nicotine Polacrilex 2 MG GUM 4 MG BUCCAL ×2 (13:31→18:33)
[2022-07-22 20:15] VITALS: BP 146/97; PULSE 78; RESP 16; TEMP 36.4; O2SAT 95
[2022-07-22] MEDS: QUEtiapine Fumarate 300 MG TABLET PO (21:56)
--- NOTE | 2022-07-23 | ECG_ITS ---
Test Reason : ect clearence Blood Pressure : / mmHG Vent. Rate : 081 BPM Atrial Rate : 081 BPM P-R Int : 152 ms QRS Dur : 086 ms QT Int : 366 ms P-R-T Axes : 042 -01 028 degrees QTc Int : 425 ms Normal sinus rhythm Normal ECG When compared with ECG of 20-JUL-2022 21:20, No significant change was found Referred By: Rajan Aragon Electronically Signed By:LYUDMILA SCOTT MD
[2022-07-23] MEDS: lamoTRIgine 25 MG TABLET 50 MG PO (08:59)
[2022-07-23] MEDS: QUEtiapine Fumarate 100 MG TABLET PO (08:59)
[2022-07-23 09:31] VITALS: BP 130/75; PULSE 87; RESP 16; TEMP 36.6; O2SAT 97
[2022-07-23] MEDS: Nicotine Polacrilex 2 MG GUM 4 MG BUCCAL ×2 (14:26→18:45)
--- NOTE | 2022-07-23 14:34 | HO.PSYCHPN ---
Subjective Subjective Date of Service: 07/23/22 Reason For Visit: SI Interim History: long convo held with pt re ECT and TMS and R/B of both. pt interested in pursuing ECT, likely, and would like to speak with Dr. Verduzco. Dr. Verduzco informed, ECT clearance requested of medicine. agreeable to taper lamictal as not indicated. decrease from 50 mg daily to 25 mg daily today. per staff, friendly, isolative. eating and sleeping OK. guarded. slept well. here for med adjustments. Mental Status Exam Mental Status Exam Narrative: Pleasant, hospital clothing, organized, less anxious, less depressed, less intense SI, feels safe on unit. No psychosis, agitation or aggression. Insight and judgment fair Diagnostics Vital Signs (24Hr): Vital Signs - 24 hr 07/22/22 20:15 07/23/22 09:31 Temperature 97.6 F 97.8 F Pulse Rate 78 87 Respiratory Rate 16 16 Blood Pressure 146/97 H 130/75 Pulse Oximetry 95 97 Oxygen Delivery Method Room Air Room Air BMI result Body Mass Index 30.7 Labs 07/20/22 21:21 07/20/22 15:37 Medications Medications Current Medications Acetaminophen (Acetaminophen 325 Mg Tablet) 650 mg PO Q6H PRN PRN Reason: Headache/Pain Mild Scale (1-3) Al Hydroxide/Mg Hydroxide (Magnesium Hydrox/Alum Hydrox 30 Ml Oral.Susp) 30 ml PO Q6H PRN PRN Reason: Heartburn/Nausea Hydroxyzine HCl (Hydroxyzine Hcl 25 Mg Tablet) 25 mg PO Q6H PRN PRN Reason: Anxiety Lorazepam (Lorazepam 0.5 Mg Tablet) 0.5 mg PO TID PRN PRN Reason: Anxiety Last Admin: 07/22/22 15:33 Dose: 0.5 mg Magnesium Hydroxide (Milk Of Magnesia 30 Ml Oral.Susp) 30 ml PO DAILY PRN PRN Reason: Constipation Nicotine Polacrilex (Nicotine Polacrilex 2 Mg Gum) 4 mg BUCCAL Q2H PRN PRN Reason: Nicotine Cravings Last Admin: 07/23/22 14:26 Dose: 4 mg Quetiapine Fumarate (Quetiapine Fumarate 300 Mg Tablet) 300 mg PO BEDTIME YOLIS Last Admin: 07/22/22 21:56 Dose: 300 mg Quetiapine Fumarate (Quetiapine Fumarate 100 Mg Tablet) 100 mg PO DAILY YOLIS Last Admin: 07/23/22 08:59 Dose: 100 mg Trazodone HCl (Trazodone Hcl 50 Mg Tablet) 50 mg PO BEDTIME PRN PRN Reason: Insomnia Allergies Allergies Allergy/AdvReac Type Severity Reaction Status Date / Time Penicillins [PCN] Allergy Rash Verified 07/04/22 11:54 Assessment & Plan Assessment & Plan (1) Major depressive disorder, recurrent severe without psychotic features: Status: Acute Code(s): F33.2 - Major depressive disorder, recurrent severe without psychotic features Plan Worsening MDD with SI despite PHP. Might benefit from ECT. IN meantime will adjust seroquel so its 300mg bedtime (sleep and mood) and 100mg AM (mood and anxiety). No benefit from abilify or wellbutrin will therefore stop both. c/w lamictal 50mg as just increased within last week. 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 ECT might be appropriate 07/23: ECT clearance requested, EKG ordered, Dr. Verduzco consulted. decrease lamictal from 50 mg daily to 25 mg daily, taper as not indicated. continue meds otherwise. Patient educated on: ECT and TMS Reason for contiued inpatient stay Substantial Risk for: harm to self, inability to function and rapid decompensation Time Spent With Patient Time: Total time managing care of this patient today __35__ minutes.
--- NOTE | 2022-07-23 17:41 | P.CONHOSP_ITS ---
History of Present Illness Data of Consult Service Date: 07/23/22 Requesting physician: Rajan Aragon Primary Care Provider: Amberly Physician HPI Reason for consult: ECT evaluation 41 year old male with history of alcohol abuse in remission (last etoh 1 year ago), former tobacco chewer on NRT pouches, OCD, depression admitted to psychiatry with consult placed to medicine for evaluation for ECT. Denies any history seizures, CHF, cardiovascular disease. Does have FH in maternal grandfather who had several IN's and was a smoker. No CVD in mother. He is able to ambulate and walk upstairs without any shortness of breath, lightheadedness, CP and denies these sx at rest as well. He has never undergone ECT in the past. Review of Systems Review of Systems: General: No fevers, malaise, unintentional weight loss HEENT: No blurred vision, diplopia Cardiovascular: No chest pain, palpitations, or leg edema Respiratory: No shortness of breath, wheezing, cough GI: No abdominal pain, nausea, vomiting, diarrhea, constipation, melena, hematochezia : No dysuria, hematuria, increased urinary frequency, decreased urinary output MSK: No myalgia, back pain Neuro: No headaches, weakness, paresthesias Skin: No rashes or lesions [facility] Medical History (Updated 07/23/22 @ 17:51 by KAROLINA Corbin) Abdominal hernia Alcohol use disorder, severe, in sustained remission Major depressive disorder, recurrent severe without psychotic features No known health problems OCD (obsessive compulsive disorder) Social History (Updated 07/23/22 @ 17:50 by KAROLINA Corbin) Household Members: Significant Other and Children Housing: House Do you presently have visiting nurse or other home services: No Patient Tobacco Use Status: Former Tobacco user Tobacco use type: Smokeless Tobacco Smoked in Last 30 Days: No e-Cigarette/Vaping Use: Never Used Patient Interested in Nicotine Replacement: Yes Patient Given Instructions on How to Stop Smoking: Yes Date Education Initiated: 07/21/22 Second Hand Smoke Exposure: No Use of substances other than those prescribed or required for medical reasons: No Currently Displaying Signs/Symptoms of Drug Intoxication Withdrawal: No Any prior treatment program specific to substance use: No Have you been hit, kicked, punched, or otherwise hurt by someone within the past year? If so, by whom?: No Do you feel safe in your current relationship?: No Is there a partner from a previous relationship who is making you feel unsafe now?: No Are you made to feel afraid or neglected: No Spiritual Healthcare Practices: Restorationist Muslim Healthcare Practices: Restorationist Cultural Healthcare Practices: none reported Advance Directives: No Advance Directives Information Provided: No Do you have thoughts of harming others: None Do you have a plan to hurt others: No Plan Recently lost weight without trying: No How much weight loss: Not applicable Eating poorly because of decreased appetite: No Nutrition screen score: 0 Nutrition Risks: No Nutritional Risk Poor oral hygiene: No service: No Sexual orientation: Straight/Heterosexual Meds Allergies Allergy/AdvReac Type Severity Reaction Status Date / Time Penicillins [PCN] Allergy Rash Verified 07/04/22 11:54 Active Medications: Current Medications Acetaminophen (Acetaminophen 325 Mg Tablet) 650 mg PO Q6H PRN PRN Reason: Headache/Pain Mild Scale (1-3) Al Hydroxide/Mg Hydroxide (Magnesium Hydrox/Alum Hydrox 30 Ml Oral.Susp) 30 ml PO Q6H PRN PRN Reason: Heartburn/Nausea Hydroxyzine HCl (Hydroxyzine Hcl 25 Mg Tablet) 25 mg PO Q6H PRN PRN Reason: Anxiety Lamotrigine (Lamotrigine 25 Mg Tablet) 25 mg PO DAILY YOLIS Lorazepam (Lorazepam 0.5 Mg Tablet) 0.5 mg PO TID PRN PRN Reason: Anxiety Last Admin: 07/22/22 15:33 Dose: 0.5 mg Magnesium Hydroxide (Milk Of Magnesia 30 Ml Oral.Susp) 30 ml PO DAILY PRN PRN Reason: Constipation Nicotine Polacrilex (Nicotine Polacrilex 2 Mg Gum) 4 mg BUCCAL Q2H PRN PRN Reason: Nicotine Cravings Last Admin: 07/23/22 14:26 Dose: 4 mg Quetiapine Fumarate (Quetiapine Fumarate 300 Mg Tablet) 300 mg PO BEDTIME YOLIS Last Admin: 07/22/22 21:56 Dose: 300 mg Quetiapine Fumarate (Quetiapine Fumarate 100 Mg Tablet) 100 mg PO DAILY YOLIS Last Admin: 07/23/22 08:59 Dose: 100 mg Trazodone HCl (Trazodone Hcl 50 Mg Tablet) 50 mg PO BEDTIME PRN PRN Reason: Insomnia Home Medications Medication Instructions Recorded Confirmed Last Taken Type aripiprazole 10 mg tablet 1 tab PO DAILY 07/20/22 07/20/22 Unknown History bupropion HCl 300 mg 24 hr tablet, 1 tab PO DAILY 07/20/22 07/20/22 Unknown History extended release (Wellbutrin XL) lamotrigine 25 mg tablet 50 mg PO DAILY 07/20/22 07/20/22 Unknown History lorazepam 0.5 mg tablet 1 tab PO TID PRN Anxiety 07/20/22 07/20/22 Unknown History nicotine (polacrilex) 2 mg gum 4 mg buccal Q2H 07/20/22 07/20/22 Unknown History quetiapine 300 mg tablet,extended 1 tab PO BEDTIME 07/20/22 07/20/22 Unknown History release 24 hr Physical Exam Vital Signs and Narrative: Vital Signs: Last Vital Signs Temp 97.8 F 07/23/22 09:31 Pulse 87 07/23/22 09:31 Resp 16 07/23/22 09:31 BP 130/75 07/23/22 09:31 Pulse Ox 97 07/23/22 09:31 O2 Del Method 07/23/22 09:31 BMI result Body Mass Index 30.7 Constitutional - Awake and Alert, No apparent distress Eyes - PERRLA, EOMI Cardiovascular - S1S2, RRR, No edema Respiratory - Normal lung expansion, Normal respiratory effort, No respiratory distress, CTA bilaterally Gastrointestinal - NT / ND; +BS; No rebound or guarding Extremities - no calf tenderness bilaterally, no swelling Skin - Warm/Dry Neurological - Alert & oriented x3, CN II-XII in tact, 5/5 strength BUE and BLE Psychological - Appropriate affect Results Labs 07/20/22 21:21 07/20/22 15:37 Assessment and Plan (1) Routine medical exam: Status: Acute Plan 41 year old male with history of alcohol abuse in remission (last etoh 1 year ago), former tobacco chewer on NRT pouches, OCD, depression admitted to psychiatry with consult placed to medicine for evaluation for ECT. #Depression/OCD -Plan per psychiatry -At this time, there is no medical contraindication existing preventing patient from undergoing ECT treatments. Revised cardiac risk index for pre-op score is 0 . #Former tobacco chewer -Continue NRT, but has been using this for years. Would consider weaning and tapering off if possible Thank you for allowing me to participate in this consult. Signing off at this time. Please do not hesitate to call for further questions. Time Spent With Patient Time: Total time managing care of this patient today ____ minutes.
[2022-07-23 20:15] VITALS: BP 167/90; PULSE 88; RESP 16; TEMP 36.2; O2SAT 96
[2022-07-23] MEDS: QUEtiapine Fumarate 300 MG TABLET PO (21:16)
[2022-07-24 06:00] VITALS: BP 146/89; PULSE 89; RESP 16; TEMP 36.6; O2SAT 96
[2022-07-24] MEDS: QUEtiapine Fumarate 100 MG TABLET PO (09:04)
[2022-07-24] MEDS: lamoTRIgine 25 MG TABLET PO (09:05)
[2022-07-24] MEDS: Nicotine Polacrilex 2 MG GUM 4 MG BUCCAL ×3 (10:46→18:26)
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
--- NOTE | 2022-07-24 13:57 | HO.PSYCHPN ---
Subjective Subjective Date of Service: 07/24/22 Reason For Visit: SI Interim History: calm, cooperative. reports having met with Dr. Verduzco with plan to start ECT tomorrow. EKG completed, medicine consult completed. EKG and medicine note reviewed with pt. c/o being in bed a lot, although he did come out for art. read a bit on saturday. amotivated. depressed. per staff, eating well, sleeping too much. anx 2, dep 9. no SI. isolative. pleasant. slept. Mental Status Exam Mental Status Exam Narrative: adequately dressed and groomed, cooperative, no PMA/PMR. speech nml rate and amount, decreased prosody. thoughts linear and logical without delusions or paranoia. affect constricted, hypo-intense, non-labile. mood depressed. no SI/HI/AVH expressed. Diagnostics Vital Signs (24Hr): Vital Signs - 24 hr 07/23/22 20:15 07/24/22 06:00 Temperature 97.2 F 97.9 F Pulse Rate 88 89 Respiratory Rate 16 16 Blood Pressure 167/90 H 146/89 H Pulse Oximetry 96 96 Oxygen Delivery Method Room Air Room Air BMI result Body Mass Index 30.7 Labs 07/20/22 21:21 07/20/22 15:37 Medications Medications Current Medications Acetaminophen (Acetaminophen 325 Mg Tablet) 650 mg PO Q6H PRN PRN Reason: Headache/Pain Mild Scale (1-3) Al Hydroxide/Mg Hydroxide (Magnesium Hydrox/Alum Hydrox 30 Ml Oral.Susp) 30 ml PO Q6H PRN PRN Reason: Heartburn/Nausea Hydroxyzine HCl (Hydroxyzine Hcl 25 Mg Tablet) 25 mg PO Q6H PRN PRN Reason: Anxiety Lorazepam (Lorazepam 0.5 Mg Tablet) 0.5 mg PO TID PRN PRN Reason: Anxiety Last Admin: 07/22/22 15:33 Dose: 0.5 mg Magnesium Hydroxide (Milk Of Magnesia 30 Ml Oral.Susp) 30 ml PO DAILY PRN PRN Reason: Constipation Nicotine Polacrilex (Nicotine Polacrilex 2 Mg Gum) 4 mg BUCCAL Q2H PRN PRN Reason: Nicotine Cravings Last Admin: 07/24/22 13:46 Dose: 4 mg Quetiapine Fumarate (Quetiapine Fumarate 300 Mg Tablet) 300 mg PO BEDTIME [facility]OL[facility] Last Admin: 07/23/22 21:16 Dose: 300 mg Quetiapine Fumarate (Quetiapine Fumarate 100 Mg Tablet) 100 mg PO DAILY [facility] Last Admin: 07/24/22 09:04 Dose: 100 mg Trazodone HCl (Trazodone Hcl 50 Mg Tablet) 50 mg PO BEDTIME PRN PRN Reason: Insomnia Allergies Allergies Allergy/AdvReac Type Severity Reaction Status Date / Time Penicillins [PCN] Allergy Rash Verified 07/04/22 11:54 Assessment & Plan Assessment & Plan (1) Major depressive disorder, recurrent severe without psychotic features: Status: Acute Code(s): F33.2 - Major depressive disorder, recurrent severe without psychotic features Assessment and Plan: Case reviewed with Dr. Aragon patient seen chart reviewed. Patient has no medical contraindications to ECT has had recent significant suicidal thoughts and has not responded over number of months and has had now 2 recent hospitalizations. Patient clearly meets indication for ECT with treatment resistant depression and acute suicidality. Risks benefits alternatives reviewed with patient. Would try and get a clearer past medication history consider Anafranil Effexor Cymbalta. Would stabilize the patient with few ECT in-patient prior to seeing if we could transition to outpatient patient given literature regarding ECT or questions answered (2) OCD (obsessive compulsive disorder): Status: Acute Code(s): F42.9 - Obsessive-compulsive disorder, unspecified Plan Worsening MDD with SI despite PHP. Might benefit from ECT. IN meantime will adjust seroquel so its 300mg bedtime (sleep and mood) and 100mg AM (mood and anxiety). No benefit from abilify or wellbutrin will therefore stop both. c/w lamictal 50mg as just increased within last week. Transition Manager raised possibility of ECT- open to same 07/22: no changes. ECT might be appropriate 07/23: ECT clearance requested, EKG ordered, Dr. Verduzco consulted.? decrease lamictal from 50 mg daily to 25 mg daily, taper as not indicated.? continue meds otherwise. 07/24: seen by Luba as well as hospitalist, cleared for ECT, scheduled to start tomorrow. with depression and OCD Dx, pt is not current on serotonergic agent. will investigate that option moving forward. Reason for contiued inpatient stay Substantial Risk for: harm to self, inability to function and rapid decompensation Time Spent With Patient Time: Total time managing care of this patient today __25__ minutes.
[2022-07-24] MEDS: QUEtiapine Fumarate 300 MG TABLET PO (20:23)
[2022-07-25] VITALS (10 sets, daily range): BP systolic 124–143; BP diastolic 73–101; PULSE 66–102; RESP 15–18; TEMP 36.3–36.9; O2SAT 92–96
--- NOTE | 2022-07-25 06:35 | HO.ANESPROP2 ---
[facility] Active Problems Active Problems: All Active Problems (Updated 07/23/22 @ 17:51 by KAROLINA Corbin) Routine medical exam (Acute) Major depressive disorder, recurrent severe without psychotic features (Acute) OCD (obsessive compulsive disorder) (Acute) Alcohol use disorder, severe, in sustained remission (Acute) Past Medical History Medical History (Updated 07/23/22 @ 17:51 by KAROLINA Corbin) Abdominal hernia Alcohol use disorder, severe, in sustained remission Major depressive disorder, recurrent severe without psychotic features No known health problems OCD (obsessive compulsive disorder) Family History Family history of problems with anesthesia: No Surgical History History of Problems with Anesthesia: No Social History Social History (Updated 07/23/22 @ 17:50 by KAROLINA Corbin) Household Members: Significant Other and Children Housing: House Do you presently have visiting nurse or other home services: No Patient Tobacco Use Status: Former Tobacco user Tobacco use type: Smokeless Tobacco Smoked in Last 30 Days: No e-Cigarette/Vaping Use: Never Used Patient Interested in Nicotine Replacement: Yes Patient Given Instructions on How to Stop Smoking: Yes Date Education Initiated: 07/21/22 Second Hand Smoke Exposure: No Use of substances other than those prescribed or required for medical reasons: No Currently Displaying Signs/Symptoms of Drug Intoxication Withdrawal: No Any prior treatment program specific to substance use: No Have you been hit, kicked, punched, or otherwise hurt by someone within the past year? If so, by whom?: No Do you feel safe in your current relationship?: No Is there a partner from a previous relationship who is making you feel unsafe now?: No Are you made to feel afraid or neglected: No Spiritual Healthcare Practices: Taoist Buddhism Healthcare Practices: Taoist Cultural Healthcare Practices: none reported Advance Directives: No Advance Directives Information Provided: No Do you have thoughts of harming others: None Do you have a plan to hurt others: No Plan Recently lost weight without trying: No How much weight loss: Not applicable Eating poorly because of decreased appetite: No Nutrition screen score: 0 Nutrition Risks: No Nutritional Risk Poor oral hygiene: No service: No Sexual orientation: Straight/Heterosexual Meds Allergies Allergy/AdvReac Type Severity Reaction Status Date / Time Penicillins [PCN] Allergy Rash Verified 07/04/22 11:54 Active Medications: Current Medications Acetaminophen (Acetaminophen 325 Mg Tablet) 650 mg PO Q6H PRN PRN Reason: Headache/Pain Mild Scale (1-3) Al Hydroxide/Mg Hydroxide (Magnesium Hydrox/Alum Hydrox 30 Ml Oral.Susp) 30 ml PO Q6H PRN PRN Reason: Heartburn/Nausea Hydroxyzine HCl (Hydroxyzine Hcl 25 Mg Tablet) 25 mg PO Q6H PRN PRN Reason: Anxiety Lorazepam (Lorazepam 0.5 Mg Tablet) 0.5 mg PO TID PRN PRN Reason: Anxiety Last Admin: 07/22/22 15:33 Dose: 0.5 mg Magnesium Hydroxide (Milk Of Magnesia 30 Ml Oral.Susp) 30 ml PO DAILY PRN PRN Reason: Constipation Nicotine Polacrilex (Nicotine Polacrilex 2 Mg Gum) 4 mg BUCCAL Q2H PRN PRN Reason: Nicotine Cravings Last Admin: 07/24/22 18:26 Dose: 4 mg Quetiapine Fumarate (Quetiapine Fumarate 300 Mg Tablet) 300 mg PO BEDTIME [facility] Last Admin: 07/24/22 20:23 Dose: 300 mg Quetiapine Fumarate (Quetiapine Fumarate 100 Mg Tablet) 100 mg PO DAILY [facility] Last Admin: 07/24/22 09:04 Dose: 100 mg Trazodone HCl (Trazodone Hcl 50 Mg Tablet) 50 mg PO BEDTIME PRN PRN Reason: Insomnia Home Medications Medication Instructions Recorded Confirmed Last Taken Type aripiprazole 10 mg tablet 1 tab PO DAILY 07/20/22 07/20/22 Unknown History bupropion HCl 300 mg 24 hr tablet, 1 tab PO DAILY 07/20/22 07/20/22 Unknown History extended release (Wellbutrin XL) lamotrigine 25 mg tablet 50 mg PO DAILY 07/20/22 07/20/22 Unknown History lorazepam 0.5 mg tablet 1 tab PO TID PRN Anxiety 07/20/22 07/20/22 Unknown History nicotine (polacrilex) 2 mg gum 4 mg buccal Q2H 07/20/22 07/20/22 Unknown History quetiapine 300 mg tablet,extended 1 tab PO BEDTIME 07/20/22 07/20/22 Unknown History release 24 hr Exam Exam Date and Time: July 25, 2022 0635 Height,Weight and Vital Signs: Height 5 ft 11 in Weight 99.79 kg Last Vital Signs Temp 97.4 F 07/25/22 06:30 Pulse 66 07/25/22 06:30 Resp 16 07/25/22 06:30 BP 131/89 07/25/22 06:30 Pulse Ox 95 07/25/22 06:30 O2 Del Method 07/25/22 06:30 Pertinent Lab Results Pertinent Lab Results: Laboratory Tests 07/20/22 07/20/22 07/20/22 15:37 15:37 15:54 WBC RBC Hgb Hct MCV MCH MCHC RDW Plt Count MPV Immature Gran % (Auto) Neut % (Auto) Lymph % (Auto) [place] % (Auto) Eos % (Auto) Baso % (Auto) Lymph # (Auto) [place] # (Auto) Eos # (Auto) Baso # (Auto) Abs Immat Gran (auto) Absolute Neuts (auto) Absolute Nucleated RBC Nucleated RBC % (auto) Sodium 140 Potassium 4.1 Chloride 106 Carbon Dioxide 26 Anion Gap 12 BUN 13 Creatinine 0.94 Estim Creat Clear Calc 125.7 Estimated GFR > 60 Random Glucose 88 Calcium 9.4 Total Bilirubin 0.9 Direct Bilirubin 0.2 AST 28 ALT 55 H Alkaline Phosphatase 98 Total Protein 7.0 Albumin 4.4 Salicylates < 5.0 L Urine Opiates Screen Not Detected Urine Fentanyl Screen Not Detected Acetaminophen < 17 Ur Barbiturates Screen Not Detected Ur Phencyclidine Scrn Not Detected Ur Amphetamines Screen Not Detected U Benzodiazepines Scrn Not Detected Urine Cocaine Screen Not Detected U Marijuana (THC) Screen Not Detected Ethyl Alcohol < 10 COVID-19 (LEA) Negative COVID-19 Clin Com See Note 07/20/22 21:21 WBC 7.4 RBC 5.32 Hgb 16.7 Hct 46.1 MCV 86.7 MCH 31.4 MCHC 36.2 H RDW 11.4 Plt Count 190 MPV 9.8 Immature Gran % (Auto) 0.1 Neut % (Auto) 62.2 Lymph % (Auto) 28.2 [place] % (Auto) 7.1 Eos % (Auto) 2.0 Baso % (Auto) 0.4 Lymph # (Auto) 2.1 [place] # (Auto) 0.5 Eos # (Auto) 0.2 Baso # (Auto) 0.0 Abs Immat Gran (auto) 0.01 Absolute Neuts (auto) 4.6 Absolute Nucleated RBC 0.000 Nucleated RBC % (auto) 0.0 Sodium Potassium Chloride Carbon Dioxide Anion Gap BUN Creatinine Estim Creat Clear Calc Estimated GFR Random Glucose Calcium Total Bilirubin Direct Bilirubin AST ALT Alkaline Phosphatase Total Protein Albumin Salicylates Urine Opiates Screen Urine Fentanyl Screen Acetaminophen Ur Barbiturates Screen Ur Phencyclidine Scrn Ur Amphetamines Screen U Benzodiazepines Scrn Urine Cocaine Screen U Marijuana (THC) Screen Ethyl Alcohol COVID-19 ([facility]) COVID-19 Clin Com Airway Mallampati Class: II TM Dist: >3cm Neck ROM: Full Heart: rrr Lungs: cta Assessment and Plan Assessment Anesthesia Assessment: Anesthesia Plan Discussed and Chart Reviewed Final Anesthetic Review Family History of Problems with Anesthesia: No History of Problems with Anesthesia: No NPO: Yes ASA Class: III Final Preanesthetic Review: No Changes in Pt Med Stat, Meds/Allgs Chart Reviewed and Consent Obtained/Reviewed Patient Risk: Intermediate Procedure Risk: Intermediate Anesthetic Plan Anesthetic Plan: GA Disposition: Standard PACU
--- NOTE | 2022-07-25 07:08 | MHC.SHP ---
Pre-Procedural Eval Section A Date of Service: 07/25/22 The patient is an INPATIENT: Yes Changes since office visit: Yes Patient answered all questions; No Cold of Flu in the past 2 weeks, No New Medical Problems and No Changes in Medication Section B Chief Complaint: SI Allergies: Allergies Allergy/AdvReac Type Severity Reaction Status Date / Time Penicillins [PCN] Allergy Rash Verified 07/04/22 11:54 Plan I have reviewed the history and physical and performed a pertinent physical examination on my patient. No changes have occurred unless specified. Time Spent With Patient Time: Total time managing care of this patient today ____ minutes.
--- NOTE | 2022-07-25 07:33 | HO.ECTPROC ---
ECT Procedure Note Diagnosis/Treatment Date of Service: 07/25/22 Diagnosis: Major Depressive Disorder Current Treatment Number: 1 Treatment: Series Interval Clinical Notes: pt withdrawn flat hopeless helpless able give informed consent Time: Total time managing care of this patient today ____ minutes. ECT Settings Device: THYMATRON DGx Electrode Placement: Right Unilateral Program/Pulse Width: 0.25 Energy Percent: 100 Seizure Duration By EEG (in seconds): 122 Medications Administration General Anesthetic: Etomidate (16) Muscle Relaxant: Succinylcholine (100) Ancillary Medications Analgesics: Torodol - Pre ECT Anti-emetics: Zofran - Pre ECT Miscillaneous Medications: Propofol (30 mg post) Airway Management Airway Management: Bag Mask Ventilation Treatment Recommendations Energy Percent: 60 Notes: inc etomidate 18 mg inc succ 120-140 mg
[2022-07-25] MEDS: Acetaminophen 325 MG TABLET 650 MG PO ×2 (08:45→16:05)
[2022-07-25] MEDS: QUEtiapine Fumarate 100 MG TABLET PO (08:45)
[2022-07-25] MEDS: Nicotine Polacrilex 2 MG GUM 4 MG BUCCAL ×3 (11:05→19:08)
--- NOTE | 2022-07-25 13:14 | P.PNPSI_ITS ---
Subjective Subjective Date of Service: 07/25/22 Reason For Visit: SI Interim History: calm, cooperative. reports ECT went reasonably well, some anxiety immediately after, which has subsided, as well as a moderate DELGADO being addressed with tylenol. reports he has been on sertraline in the past but cannot recall the dosing or duration of therapy. states his prescriber as bianca rodriguez with [facility], endorsing MD's plan to contact her. per staff, anxious and depressed. quiet, in milieu. sleeping well. ECT went well today. attending groups, watching TV. Mental Status Exam Mental Status Exam Narrative: adequately dressed and groomed, cooperative, no PMA/PMR. speech nml rate and amount, decreased prosody. thoughts linear and logical without delusions or paranoia. affect constricted, hypo-intense, non-labile. no SI/HI/AVH expressed. Diagnostics Vital Signs (24Hr): Vital Signs - 24 hr 07/25/22 06:30 07/25/22 06:15 07/25/22 07:32 Temperature 97.4 F 97.6 F 98.4 F Pulse Rate 66 100 81 Respiratory Rate 16 18 16 Blood Pressure 131/89 130/82 136/79 Pulse Oximetry 95 94 92 Oxygen Delivery Method Room Air Room Air Nasal Cannula with ETCO2 Oxygen Flow Rate 2 07/25/22 07:37 07/25/22 07:42 07/25/22 07:47 Temperature Pulse Rate 89 86 102 H Respiratory Rate 15 18 17 Blood Pressure 142/84 H 142/101 H 143/78 H Pulse Oximetry 95 95 96 Oxygen Delivery Method Nasal Cannula with ETCO2 Nasal Cannula with ETCO2 Nasal Cannula with ETCO2 Oxygen Flow Rate 2 2 2 07/25/22 08:02 07/25/22 08:47 07/25/22 08:48 Temperature 97.9 F 97.9 F 97.9 F Pulse Rate 93 95 80 Respiratory Rate 18 18 18 Blood Pressure 138/88 130/73 130/73 Pulse Oximetry 96 95 Oxygen Delivery Method Room Air Oxygen Flow Rate BMI result Body Mass Index 30.7 Labs 07/20/22 21:21 07/20/22 15:37 Medications Medications Current Medications Acetaminophen (Acetaminophen 325 Mg Tablet) 650 mg PO Q6H PRN PRN Reason: Headache/Pain Mild Scale (1-3) Last Admin: 07/25/22 08:45 Dose: 650 mg Al Hydroxide/Mg Hydroxide (Magnesium Hydrox/Alum Hydrox 30 Ml Oral.Susp) 30 ml PO Q6H PRN PRN Reason: Heartburn/Nausea Hydroxyzine HCl (Hydroxyzine Hcl 25 Mg Tablet) 25 mg PO Q6H PRN PRN Reason: Anxiety Lorazepam (Lorazepam 0.5 Mg Tablet) 0.5 mg PO TID PRN PRN Reason: Anxiety Last Admin: 07/22/22 15:33 Dose: 0.5 mg Magnesium Hydroxide (Milk Of Magnesia 30 Ml Oral.Susp) 30 ml PO DAILY PRN PRN Reason: Constipation Nicotine Polacrilex (Nicotine Polacrilex 2 Mg Gum) 4 mg BUCCAL Q2H PRN PRN Reason: Nicotine Cravings Last Admin: 07/24/22 18:26 Dose: 4 mg Quetiapine Fumarate (Quetiapine Fumarate 300 Mg Tablet) 300 mg PO BEDTIME [facility] Last Admin: 07/24/22 20:23 Dose: 300 mg Quetiapine Fumarate (Quetiapine Fumarate 100 Mg Tablet) 100 mg PO DAILY [facility] Last Admin: 07/25/22 08:45 Dose: 100 mg Trazodone HCl (Trazodone Hcl 50 Mg Tablet) 50 mg PO BEDTIME PRN PRN Reason: Insomnia Allergies Allergies Allergy/AdvReac Type Severity Reaction Status Date / Time Penicillins [PCN] Allergy Rash Verified 07/04/22 11:54 Assessment & Plan Assessment & Plan (1) Major depressive disorder, recurrent severe without psychotic features: Status: Acute Code(s): F33.2 - Major depressive disorder, recurrent severe without psychotic features Assessment and Plan: Case reviewed with Dr. Aragon patient seen chart reviewed. Patient has no me dical contraindications to ECT has had recent significant suicidal thoughts and has not responded over number of months and has had now 2 recent hospitalizations. Patient clearly meets indication for ECT with treatment resistant depression and acute suicidality. Risks benefits alternatives reviewe d with patient. Would try and get a clearer past medication history consider Anafranil Effexor Cymbalta. Would stabilize the patient with few ECT in-patient prior to seeing if we could transition to outpatient patient given literature regarding ECT or questions answered (2) OCD (obsessive compulsive disorder): Status: Acute Code(s): F42.9 - Obsessive-compulsive disorder, unspecified Plan Worsening MDD with SI despite PHP. Might benefit from ECT. IN meantime will adjust seroquel so its 300mg bedtime (sleep and mood) and 100mg AM (mood and anxiety). No benefit from abilify or wellbutrin will therefore stop both. c/w lamictal 50mg as just increased within last week. Acid Loader raised possibility of ECT- open to same 07/22: no changes. ECT might be appropriate 07/23: ECT clearance requested, EKG ordered, Dr. Verduzco consulted.? decrease lamictal from 50 mg daily to 25 mg daily, taper as not indicated.? continue meds otherwise. 07/24: seen by Luba as well as hospitalist, cleared for ECT, scheduled to start tomorrow. with depression and OCD Dx, pt is not current on serotonergic agent. will investigate that option moving forward. 07/25: first ECT completed, went well, generally. awaiting contact with outpt prescriber re SSRI/SNRI Hx (or more broadly, Tx of OCD and depression Hx). Reason for contiued inpatient stay Substantial Risk for: harm to self Time Spent With Patient Time: Total time managing care of this patient today __25__ minutes.
[2022-07-25] MEDS: QUEtiapine Fumarate 300 MG TABLET PO (20:12)
[2022-07-26 07:00] VITALS: BMI 31.4
[2022-07-26] MEDS: QUEtiapine Fumarate 100 MG TABLET PO (08:18)
[2022-07-26] MEDS: Acetaminophen 325 MG TABLET 650 MG PO ×2 (08:18→16:37)
[2022-07-26 08:21] VITALS: BP 138/79; PULSE 75; RESP 18; TEMP 35.6; O2SAT 98
[2022-07-26] MEDS: Nicotine Polacrilex 2 MG GUM 4 MG BUCCAL ×4 (09:42→18:27)
--- NOTE | 2022-07-26 13:24 | P.PNPSI_ITS ---
Subjective Subjective Date of Service: 07/26/22 Reason For Visit: SI Interim History: calm, cooperative. states he was able to stay out of bed all day yesterday. discussed anafranil with pt, he would like to stick to ECT for now and discuss with his outpt prescriber after discharge. asking to be discharged saturday. per staff, moderate anx/dep. ECT helped. attending groups. good appetite and sleep. asking for D/C saturday. Mental Status Exam Mental Status Exam Narrative: adequately dressed and groomed, cooperative, no PMA/PMR. speech nml rate and amount, decreased prosody. thoughts linear and logical without delusions or paranoia. affect constricted, hypo-intense, non-labile. no SI/HI/AVH expressed. Diagnostics Vital Signs (24Hr): Vital Signs - 24 hr 07/25/22 20:11 07/26/22 08:21 Temperature 97.8 F 96.1 F L Pulse Rate 98 75 Respiratory Rate 18 Blood Pressure 124/87 138/79 Pulse Oximetry 94 98 Oxygen Delivery Method Room Air Room Air BMI result Body Mass Index 31.4 Labs 07/20/22 21:21 07/20/22 15:37 Medications Medications Current Medications Acetaminophen (Acetaminophen 325 Mg Tablet) 650 mg PO Q6H PRN PRN Reason: Headache/Pain Mild Scale (1-3) Last Admin: 07/26/22 08:18 Dose: 650 mg Al Hydroxide/Mg Hydroxide (Magnesium Hydrox/Alum Hydrox 30 Ml Oral.Susp) 30 ml PO Q6H PRN PRN Reason: Heartburn/Nausea Hydroxyzine HCl (Hydroxyzine Hcl 25 Mg Tablet) 25 mg PO Q4H PRN PRN Reason: Anxiety Magnesium Hydroxide (Milk Of Magnesia 30 Ml Oral.Susp) 30 ml PO DAILY PRN PRN Reason: Constipation Nicotine Polacrilex (Nicotine Polacrilex 2 Mg Gum) 4 mg BUCCAL Q2H PRN PRN Reason: Nicotine Cravings Last Admin: 07/26/22 09:42 Dose: 4 mg Quetiapine Fumarate (Quetiapine Fumarate 300 Mg Tablet) 300 mg PO BEDTIME [facility] Last Admin: 07/25/22 20:12 Dose: 300 mg Quetiapine Fumarate (Quetiapine Fumarate 100 Mg Tablet) 100 mg PO DAILY [facility] Last Admin: 07/26/22 08:18 Dose: 100 mg Trazodone HCl (Trazodone Hcl 50 Mg Tablet) 50 mg PO BEDTIME PRN PRN Reason: Insomnia Allergies Allergies Allergy/AdvReac Type Severity Reaction Status Date / Time Penicillins [PCN] Allergy Rash Verified 07/04/22 11:54 Assessment & Plan Assessment & Plan (1) Major depressive disorder, recurrent severe without psychotic features: Status: Acute Code(s): F33.2 - Major depressive disorder, recurrent severe without psychotic features Assessment and Plan: Case reviewed with Dr. Aragon patient seen chart reviewed. Patient has no medical contraindications to ECT has had recent significant suicidal thoughts and has not responded over number of months and has had now 2 recent hospitalizations. Patient clearly meets indication for ECT with treatment resistant depression and acute suicidality. Risks benefits alternatives reviewed with patient. Would try and get a clearer past medication history consider Anafranil Effexor Cymbalta. Would stabilize the patient with few ECT in-patient prior to seeing if we could transition to outpatient patient given literature regarding ECT or questions answered (2) OCD (obsessive compulsive disorder): Status: Acute Code(s): F42.9 - Obsessive-compulsive disorder, unspecified Plan Worsening MDD with SI despite PHP. Might benefit from ECT. IN meantime will adjust seroquel so its 300mg bedtime (sleep and mood) and 100mg AM (mood and anxiety). No benefit from abilify or wellbutrin will therefore stop both. c/w lamictal 50mg as just increased within last week. Early Childhood Education Instructor raised possibility of ECT- open to same 07/22: no changes. ECT might be appropriate 07/23: ECT clearance requested, EKG ordered, Dr. Verduzco consulted.? decrease lamictal from 50 mg daily to 25 mg daily, taper as not indicated.? continue meds otherwise. 07/24: seen by Nicholas as well as hospitalist, cleared for ECT, scheduled to start tomorrow. with depression and OCD Dx, pt is not current on serotonergic agent. will investigate that option moving forward. 07/25: first ECT completed, went well, generally. awaiting contact with outpt prescriber re SSRI/SNRI Hx (or more broadly, Tx of OCD and depression Hx). 07/26: calm, cooperative. asking for saturday discharge. per nicholas, would like to keep until saturday to see more improvement prior to D/C. no complaints or requests otherwise. discussed anafranil for OCD, pt will consider and discuss with outpt prescriber after discharge. Reason for contiued inpatient stay Substantial Risk for: inability to function and rapid decompensation Time Spent With Patient Time: Total time managing care of this patient today _25___ minutes.
[2022-07-26 20:00] VITALS: BP 132/80; PULSE 93; RESP 18; TEMP 36.1; O2SAT 99
[2022-07-26] MEDS: QUEtiapine Fumarate 300 MG TABLET PO (20:17)
[2022-07-27] VITALS (7 sets, daily range): BP systolic 120–151; BP diastolic 74–96; PULSE 72–92; RESP 16–20; TEMP 36.6–36.8; O2SAT 93–97
--- NOTE | 2022-07-27 08:54 | P.CONAN_ITS ---
[facility] [place] Active Problems Active Problems: All Active Problems (Updated 07/23/22 @ 17:51 by KAROLINA Corbin) Routine medical exam (Acute) Major depressive disorder, recurrent severe without psychotic features (Acute) OCD (obsessive compulsive disorder) (Acute) Alcohol use disorder, severe, in sustained remission (Acute) Past Medical History Medical History (Updated 07/23/22 @ 17:51 by KAROLINA Corbin) Abdominal hernia Alcohol use disorder, severe, in sustained remission Major depressive disorder, recurrent severe without psychotic features No known health problems OCD (obsessive compulsive disorder) Family History Family history of problems with anesthesia: No Surgical History History of Problems with Anesthesia: No Social History Social History (Updated 07/23/22 @ 17:50 by KAROLINA Corbin) Household Members: Significant Other and Children Housing: House Do you presently have visiting nurse or other home services: No Patient Tobacco Use Status: Former Tobacco user Tobacco use type: Smokeless Tobacco Smoked in Last 30 Days: No e-Cigarette/Vaping Use: Never Used Patient Interested in Nicotine Replacement: Yes Patient Given Instructions on How to Stop Smoking: Yes Date Education Initiated: 07/21/22 Second Hand Smoke Exposure: No Use of substances other than those prescribed or required for medical reasons: No Currently Displaying Signs/Symptoms of Drug Intoxication Withdrawal: No Any prior treatment program specific to substance use: No Have you been hit, kicked, punched, or otherwise hurt by someone within the past year? If so, by whom?: No Do you feel safe in your current relationship?: No Is there a partner from a previous relationship who is making you feel unsafe now?: No Are you made to feel afraid or neglected: No Spiritual Healthcare Practices: [employer]alian [employer] Healthcare Practices: Ep[employer]alian Cultural Healthcare Practices: none reported Advance Directives: No Advance Directives Information Provided: No Do you have thoughts of harming others: None Do you have a plan to hurt others: No Plan Recently lost weight without trying: No How much weight loss: Not applicable Eating poorly because of decreased appetite: No Nutrition screen score: 0 Nutrition Risks: No Nutritional Risk Poor oral hygiene: No service: No Sexual orientation: Straight/Heterosexual Meds Allergies Allergy/AdvReac Type Severity Reaction Status Date / Time Penicillins [PCN] Allergy Rash Verified 07/04/22 11:54 Active Medications: Current Medications Acetaminophen (Acetaminophen 325 Mg Tablet) 650 mg PO Q6H PRN PRN Reason: Headache/Pain Mild Scale (1-3) Last Admin: 07/26/22 16:37 Dose: 650 mg Al Hydroxide/Mg Hydroxide (Magnesium Hydrox/Alum Hydrox 30 Ml Oral.Susp) 30 ml PO Q6H PRN PRN Reason: Heartburn/Nausea Hydroxyzine HCl (Hydroxyzine Hcl 25 Mg Tablet) 25 mg PO Q4H PRN PRN Reason: Anxiety Magnesium Hydroxide (Milk Of Magnesia 30 Ml Oral.Susp) 30 ml PO DAILY PRN PRN Reason: Constipation Nicotine Polacrilex (Nicotine Polacrilex 2 Mg Gum) 4 mg BUCCAL Q2H PRN PRN Reason: Nicotine Cravings Last Admin: 07/26/22 18:27 Dose: 4 mg Quetiapine Fumarate (Quetiapine Fumarate 300 Mg Tablet) 300 mg PO BEDTIME [facility] Last Admin: 07/26/22 20:17 Dose: 300 mg Quetiapine Fumarate (Quetiapine Fumarate 100 Mg Tablet) 100 mg PO DAILY [facility] Last Admin: 07/26/22 08:18 Dose: 100 mg Trazodone HCl (Trazodone Hcl 50 Mg Tablet) 50 mg PO BEDTIME PRN PRN Reason: Insomnia Home Medications Medication Instructions Recorded Confirmed Last Taken Type aripiprazole 10 mg tablet 1 tab PO DAILY 07/20/22 07/20/22 Unknown History bupropion HCl 300 mg 24 hr tablet, 1 tab PO DAILY 07/20/22 07/20/22 Unknown History extended release (Wellbutrin XL) lamotrigine 25 mg tablet 50 mg PO DAILY 07/20/22 07/20/22 Unknown History lorazepam 0.5 mg tablet 1 tab PO TID PRN Anxiety 07/20/22 07/20/22 Unknown History nicotine (polacrilex) 2 mg gum 4 mg buccal Q2H 07/20/22 07/20/22 Unknown History quetiapine 300 mg tablet,extended 1 tab PO BEDTIME 07/20/22 07/20/22 Unknown Hi story release 24 hr Exam Exam Date and Time: July 27, 2022 0854 Height,Weight and Vital Signs: Height 5 ft 11 in Weight 101.984 kg Last Vital Signs Temp 97.8 F 07/27/22 08:08 Pulse 72 07/27/22 08:08 Resp 18 07/26/22 20:00 BP 132/83 07/27/22 08:08 Pulse Ox 96 07/27/22 08:08 O2 Del Method 07/27/22 08:08 O2 Flow Rate 2 07/25/22 07:47 Pertinent Lab Results Pertinent Lab Results: Laboratory Tests 07/20/22 07/20/22 07/20/22 15:37 15:37 15:54 WBC RBC Hgb Hct MCV MCH MCHC RDW Plt Count MPV Immature Gran % (Auto) Neut % (Auto) Lymph % (Auto) [place] % (Auto) Eos % (Auto) Baso % (Auto) Lymph # (Auto) [place] # (Auto) Eos # (Auto) Baso # (Auto) Abs Immat Gran (auto) Absolute Neuts (auto) Absolute Nucleated RBC Nucleated RBC % (auto) Sodium 140 Potassium 4.1 Chloride 106 Carbon Dioxide 26 Anion Gap 12 BUN 13 Creatinine 0.94 Estim Creat Clear Calc 125.7 Estimated GFR > 60 Random Glucose 88 Calcium 9.4 Total Bilirubin 0.9 Direct Bilirubin 0.2 AST 28 ALT 55 H Alkaline Phosphatase 98 Total Protein 7.0 Albumin 4.4 Salicylates < 5.0 L Urine Opiates Screen Not Detected Urine Fentanyl Screen Not Detected Acetaminophen < 17 Ur Barbiturates Screen Not Detected Ur Phencyclidine Scrn Not Detected Ur Amphetamines Screen Not Detected U Benzodiazepines Scrn Not Detected Urine Cocaine Screen Not Detected U Marijuana (THC) Screen Not Detected Ethyl Alcohol < 10 COVID-19 ([facility]) Negative COVID-19 Clin Com See Note 07/20/22 21:21 WBC 7.4 RBC 5.32 Hgb 16.7 Hct 46.1 MCV 86.7 MCH 31.4 MCHC 36.2 H RDW 11.4 Plt Count 190 MPV 9.8 Immature Gran % (Auto) 0.1 Neut % (Auto) 62.2 Lymph % (Auto) 28.2 [place] % (Auto) 7.1 Eos % (Auto) 2.0 Baso % (Auto) 0.4 Lymph # (Auto) 2.1 [place] # (Auto) 0.5 Eos # (Auto) 0.2 Baso # (Auto) 0.0 Abs Immat Gran (auto) 0.01 Absolute Neuts (auto) 4.6 Absolute Nucleated RBC 0.000 Nucleated RBC % (auto) 0.0 Sodium Potassium Chloride Carbon Dioxide Anion Gap BUN Creatinine Estim Creat Clear Calc Estimated GFR Random Glucose Calcium Total Bilirubin Direct Bilirubin AST ALT Alkaline Phosphatase Total Protein Albumin Salicylates Urine Opiates Screen Urine Fentanyl Screen Acetaminophen Ur Barbiturates Screen Ur Phencyclidine Scrn Ur Amphetamines Screen U Benzodiazepines Scrn Urine Cocaine Screen U Marijuana (THC) Screen Ethyl Alcohol COVID-19 ([facility]) COVID-19 Clin Com Airway Mallampati Class: II TM Dist: >3cm Neck ROM: Full Heart: rrr Lungs: cta Assessment and Plan Assessment Anesthesia Assessment: Anesthesia Plan Discussed and Chart Reviewed Final Anesthetic Review Family History of Problems with Anesthesia: No History of Problems with Anesthesia: No NPO: Yes ASA Class: III Final Preanesthetic Review: No Changes in Pt Med Stat, Meds/Allgs Chart Reviewed and Consent Obtained/Reviewed Patient Risk: Intermediate Procedure Risk: Intermediate Anesthetic Plan Anesthetic Plan: GA Disposition: Standard PACU
--- NOTE | 2022-07-27 10:31 | P.PNPSI_ITS ---
Subjective Subjective Date of Service: 07/27/22 Reason For Visit: SI Diagnostics Vital Signs (24Hr): Vital Signs - 24 hr 07/26/22 20:00 07/27/22 08:08 Temperature 96.9 F 97.8 F Pulse Rate 93 72 Respiratory Rate 18 Blood Pressure 132/80 132/83 Pulse Oximetry 99 96 Oxygen Delivery Method Room Air Room Air BMI result Body Mass Index 31.4 Labs 07/20/22 21:21 07/20/22 15:37 Medications Medications Current Medications Acetaminophen (Acetaminophen 325 Mg Tablet) 650 mg PO Q6H PRN PRN Reason: Headache/Pain Mild Scale (1-3) Last Admin: 07/26/22 16:37 Dose: 650 mg Al Hydroxide/Mg Hydroxide (Magnesium Hydrox/Alum Hydrox 30 Ml Oral.Susp) 30 ml PO Q6H PRN PRN Reason: Heartburn/Nausea Hydroxyzine HCl (Hydroxyzine Hcl 25 Mg Tablet) 25 mg PO Q4H PRN PRN Reason: Anxiety Lactated Ringer's (Lr) 1,000 mls @ 50 mls/hr IVCONT .Q20H [facility] Magnesium Hydroxide (Milk Of Magnesia 30 Ml Oral.Susp) 30 ml PO DAILY PRN PRN Reason: Constipation Nicotine Polacrilex (Nicotine Polacrilex 2 Mg Gum) 4 mg BUCCAL Q2H PRN PRN Reason: Nicotine Cravings Last Admin: 07/26/22 18:27 Dose: 4 mg Quetiapine Fumarate (Quetiapine Fumarate 300 Mg Tablet) 300 mg PO BEDTIME [facility] Last Admin: 07/26/22 20:17 Dose: 300 mg Quetiapine Fumarate (Quetiapine Fumarate 100 Mg Tablet) 100 mg PO DAILY [facility] Last Admin: 07/26/22 08:18 Dose: 100 mg Trazodone HCl (Trazodone Hcl 50 Mg Tablet) 50 mg PO BEDTIME PRN PRN Reason: Insomnia Allergies Allergies Allergy/AdvReac Type Severity Reaction Status Date / Time Penicillins [PCN] Allergy Rash Verified 07/04/22 11:54 Assessment & Plan Assessment & Plan (1) Major depressive disorder, recurrent severe without psychotic features: Status: Acute Code(s): F33.2 - Major depressive disorder, recurrent severe without psychotic features Assessment and Plan: Case reviewed with Dr. Aragon patient seen chart reviewed. Patient has no medical contraindications to ECT has had recent significant suicidal thoughts and has not responded over number of months and has had now 2 recent hospitalizations. Patient clearly meets indication for ECT with treatment resistant depression and acute suicidality. Risks benefits alternatives reviewed with patient. Would try and get a clearer past medication history con cadd technician Anafranil Effexor Cymbalta. Would stabilize the patient with few ECT in- patient prior to seeing if we could transition to outpatient patient given literature regarding ECT or questions answered (2) OCD (obsessive compulsive disorder): Status: Acute Code(s): F42.9 - Obsessive-compulsive disorder, unspecified Plan Worsening MDD with SI despite PHP. Might benefit from ECT. IN meantime will adjust seroquel so its 300mg bedtime (sleep and mood) and 100mg AM (mood and anxiety). No benefit from abilify or wellbutrin will therefore stop both. c/w lamictal 50mg as just increased within last week. Uptwist Spinner raised possibility of ECT- open to same 07/22: no changes. ECT might be appropriate 07/23: ECT clearance requested, EKG ordered, Dr. Verduzco consulted.? decrease lamictal from 50 mg daily to 25 mg daily, taper as not indicated.? continue meds otherwise. 07/24: seen by Nicholas as well as hospitalist, cleared for ECT, scheduled to start tomorrow. with depression and OCD Dx, pt is not current on serotonergic agent. will investigate that option moving forward. 07/25: first ECT completed, went well, generally. awaiting contact with outpt prescriber re SSRI/SNRI Hx (or more broadly, Tx of OCD and depression Hx). 07/26: calm, cooperative. asking for saturday discharge. per nicholas, would like to keep until saturday to see more improvement prior to D/C. no complaints or requests otherwise. discussed anafranil for OCD, pt will consider and discuss with outpt prescriber after discharge. Time Spent With Patient Time: Total time managing care of this patient today ____ minutes.
--- NOTE | 2022-07-27 10:31 | MHC.SHP ---
Pre-Procedural Eval Section A Date of Service: 07/27/22 The patient is an INPATIENT: Yes Changes since office visit: Yes Changes in Medication and Yes Patient answered all questions; No Cold of Flu in the past 2 weeks and No New Medical Problems The History & Physical has been completed within 30 days and I have reviewed it.: Yes Section B Chief Complaint: SI Allergies: Allergies Allergy/AdvReac Type Severity Reaction Status Date / Time Penicillins [PCN] Allergy Rash Verified 07/04/22 11:54 Plan I have reviewed the history and physical and performed a pertinent physical examination on my patient. No changes have occurred unless specified. Time Spent With Patient Time: Total time managing care of this patient today ____ minutes.
--- NOTE | 2022-07-27 10:56 | HO.ECTPROC ---
ECT Procedure Note Diagnosis/Treatment Date of Service: 07/27/22 Diagnosis: Major Depressive Disorder Previous ECT Date: 07/25/22 Current Treatment Number: 2 Treatment: Series Interval Clinical Notes: Patient seems somewhat improved after 1st treatment future oriented denies SI Time: Total time managing care of this patient today ____ minutes. ECT Settings Device: THYMATRON DGx Electrode Placement: Right Unilateral Program/Pulse Width: 0.25 Energy Percent: 50 Seizure Duration By EEG (in seconds): 68 Medications Administration General Anesthetic: Etomidate (16) Muscle Relaxant: Succinylcholine (120) and Rocuronium (5) Ancillary Medications Analgesics: Torodol - Pre ECT Anti-emetics: Zofran - Pre ECT Airway Management Airway Management: Bag Mask Ventilation Treatment Recommendations Notes: Patient had ectopy post and transient bradycardia. Anesthesia recommend change to rocuronium and to have Robinul at the ready patient otherwise tolerated ECT well
[2022-07-27] MEDS: oxyCODONE HCl Immed Release 5 MG TABLET PO (11:28)
[2022-07-27] MEDS: Acetaminophen 325 MG TABLET 650 MG PO ×2 (11:29→19:11)
[2022-07-27] MEDS: QUEtiapine Fumarate 100 MG TABLET PO (11:41)
[2022-07-27] MEDS: Nicotine Polacrilex 2 MG GUM 4 MG BUCCAL ×2 (14:44→18:30)
[2022-07-27] MEDS: hydrOXYzine HCL 25 MG TABLET PO (19:11)
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
[2022-07-27] MEDS: QUEtiapine Fumarate 300 MG TABLET PO (20:15)
[2022-07-28] MEDS: QUEtiapine Fumarate 100 MG TABLET PO (08:25)
[2022-07-28 09:02] VITALS: BP 136/94; PULSE 85; RESP 16; TEMP 36.7; O2SAT 96
== END 2022-07-28 11:00 | disposition home or self-care (01) | DRG 751 ==
LOC: HO.ED 18:44 → HO.PADLT16 21:49
PROVIDERS: Nurse Practitioner Family; Psychiatry & Neurology Psychiatry; Admitting Provider Psychiatry & Neurology Psychiatry; Emergency Provider Emergency Medicine; Visit Provider Psychiatry & Neurology Psychiatry
PROC: GZB4ZZZ Other Electroconvulsive Therapy (ICD-10-PCS; CPT 90870; principal; 2022-07-25 07:30)
DX: F33.2 Major depressive disorder, recurrent severe without psychotic features (principal); R45.851 Suicidal ideations; F10.11 Alcohol abuse, in remission; F42.9 Obsessive-compulsive disorder, unspecified; Z20.822 Contact with and (suspected) exposure to COVID-19; Z88.0 Allergy status to penicillin; Z79.899 Other long term (current) drug therapy
CPT/HCPCS: 80048; 80076; 80143; 80179; 80307; 82077; 85025; 87635; 90870; 93005; 99285; J0330; J0461; J1885; J2405; S9485

== ENCOUNTER 2022-07-30 05:54 | Day surgery (SDC) | payer OTHER, SELFPAY ==
[2022-07-30 06:44] VITALS: BP 91/54; PULSE 79; RESP 16; TEMP 36.1; O2SAT 95; BMI 32.1
[2022-07-30 07:25] LABS: IDNOW Serial# 9DB6401D
[2022-07-30 07:26] LABS: COVID-19 Test Negative (Negative)
--- NOTE | 2022-07-30 07:44 | MHC.SHP ---
Pre-Procedural Eval Section A Date of Service: 07/30/22 The patient is an INPATIENT: No Changes since office visit: Yes Cold of Flu in the past 2 weeks, Yes New Medical Problems, Yes Changes in Medication and Yes Patient answered all questions The History & Physical has been completed within 30 days and I have reviewed it.: Yes Section B Chief Complaint: depression Allergies: Allergies Allergy/AdvReac Type Severity Reaction Status Date / Time Penicillins [PCN] Allergy Rash Verified 07/04/22 11:54 Plan I have reviewed the history and physical and performed a pertinent physical examination on my patient. No changes have occurred unless specified. Time Spent With Patient Time: Total time managing care of this patient today ____ minutes.
--- NOTE | 2022-07-30 07:44 | HO.ECTPROC ---
ECT Procedure Note Diagnosis/Treatment Date of Service: 07/30/22 Diagnosis: Major Depressive Disorder Previous ECT Date: 07/27/22 Current Treatment Number: 3 Treatment: Series Interval Clinical Notes: The patient reported improvement of mood, slight headache after last ECT. Time: Total time managing care of this patient today __30__ minutes. ECT Settings Device: THYMATRON DGx Electrode Placement: Right Unilateral Program/Pulse Width: 0.25 Energy Percent: 50 Seizure Duration By EEG (in seconds): 142 By Motor Observation (in seconds): 23 Medications Administration General Anesthetic: Etomidate (16) Muscle Relaxant: Rocuronium (17 with reversal) Ancillary Medications Analgesics: Torodol - Pre ECT Anti-emetics: Zofran - Pre ECT Miscillaneous Medications: Propofol Airway Management Airway Management: Bag Mask Ventilation Treatment Recommendations No Changes Recommended: No change Notes: Long seizure, it resolved by iitself but Propofol was administered after the seizure finished. Pt Tolerated Procedure w/o Issue: Yes
--- NOTE | 2022-07-30 07:47 | P.CONAN_ITS ---
[facility]LY [facility], LATER [facility] Active Problems Active Problems: All Active Problems (Updated 07/23/22 @ 17:51 by KAROLINA Corbin) Routine medical exam (Acute) Major depressive disorder, recurrent severe without psychotic features (Acute) OCD (obsessive compulsive disorder) (Acute) Alcohol use disorder, severe, in sustained remission (Acute) Past Medical History Medical History (Updated 07/23/22 @ 17:51 by KAROLINA Corbin) Abdominal hernia Alcohol use disorder, severe, in sustained remission Major depressive disorder, recurrent severe without psychotic features No known health problems OCD (obsessive compulsive disorder) Family History Family history of problems with anesthesia: No Surgical History History of Problems with Anesthesia: No Social History Social History (Updated 07/23/22 @ 17:50 by KAROLINA Corbin) Household Members: Significant Other and Children Housing: House Do you presently have visiting nurse or other home services: No Patient Tobacco Use Status: Former Tobacco user Tobacco use type: Smokeless Tobacco e-Cigarette/Vaping Use: Never Used Second Hand Smoke Exposure: No Advance Directives: No Advance Directives Information Provided: Yes service: No Sexual orientation: Straight/Heterosexual Meds Allergies Allergy/AdvReac Type Severity Reaction Status Date / Time Penicillins [PCN] Allergy Rash Verified 07/04/22 11:54 Home Medications Medication Instructions Recorded Confirmed Last Taken Type lorazepam 0.5 mg tablet 1 tab PO TID PRN Anxiety 07/20/22 07/20/22 Unknown History nicotine (polacrilex) 2 mg gum 4 mg buccal Q2H 07/20/22 07/20/22 Unknown History quetiapine 300 mg tablet,extended 1 tab PO BEDTIME 07/20/22 07/20/22 Unknown History release 24 hr Exam Exam Date and Time: July 30, 2022 0747 Height,Weight and Vital Signs: Height 5 ft 11 in Weight 104.326 kg Last Vital Signs Temp 97 F 07/30/22 06:44 Pulse 79 07/30/22 06:44 Resp 16 07/30/22 06:44 BP 91/54 L 07/30/22 06:44 Pulse Ox 95 07/30/22 06:44 O2 Del Method 07/30/22 06:44 Pertinent Lab Results Pertinent Lab Results: Laboratory Tests 07/30/22 06:14 COVID-19 (LEA) Negative COVID-19 Clin Com See Note Airway Mallampati Class: III TM Dist: >3cm Neck ROM: Full Assessment and Plan Assessment Anesthesia Assessment: Anesthesia Plan Discussed and Chart Reviewed Final Anesthetic Review Family History of Problems with Anesthesia: No History of Problems with Anesthesia: No NPO: Yes ASA Class: II and III Final Preanesthetic Review: No Changes in Pt Med Stat, Meds/Allgs Chart Reviewed, Consent Obtained/Reviewed and Anes Risks/Benef Reviewed Patient Risk: Low Procedure Risk: Low Anesthetic Plan Anesthetic Plan: GA Disposition: Standard PACU
[2022-07-30 08:17] VITALS: BP 157/90; PULSE 74; RESP 16; TEMP 36.8; O2SAT 96
[2022-07-30 08:22] VITALS: BP 166/87; PULSE 74; RESP 16; O2SAT 96
[2022-07-30 08:27] VITALS: BP 163/85; PULSE 84; RESP 17; O2SAT 98
[2022-07-30 08:32] VITALS: BP 170/99; PULSE 98; RESP 20; O2SAT 98
[2022-07-30 08:47] VITALS: BP 137/82; PULSE 89; RESP 16; TEMP 36.8; O2SAT 98
== END 2022-07-30 09:30 | disposition home or self-care (01) ==
PROVIDERS: PCP Psychiatry & Neurology Psychiatry; Visit Provider Psychiatry & Neurology Psychiatry
PROC: (CPT 90870; principal; 2022-07-30 15:00)
DX: F33.2 Major depressive disorder, recurrent severe without psychotic features (principal); F42.9 Obsessive-compulsive disorder, unspecified; F10.11 Alcohol abuse, in remission; Z20.822 Contact with and (suspected) exposure to COVID-19; Z87.891 Personal history of nicotine dependence; Z88.0 Allergy status to penicillin; Z79.899 Other long term (current) drug therapy
CPT/HCPCS: 87635; 90870; J0330; J1885; J2405

== ENCOUNTER 2022-08-01 06:07 | Day surgery (SDC) | payer OTHER, SELFPAY ==
[2022-08-01] VITALS (7 sets, daily range): BP systolic 131–154; BP diastolic 85–96; PULSE 70–101; RESP 12–20; TEMP 36.4–36.9; O2SAT 95–99; BMI 31.4
[2022-08-01 06:39] LABS: COVID-19 Test Negative (Negative)
--- NOTE | 2022-08-01 08:17 | MHC.SHP ---
Pre-Procedural Eval Section A Date of Service: 08/01/22 The patient is an INPATIENT: No Changes since office visit: Yes Patient answered all questions; No Cold of Flu in the past 2 weeks, No New Medical Problems and No Changes in Medication The History & Physical has been completed within 30 days and I have reviewed it.: Yes Section B Chief Complaint: depression Allergies: Allergies Allergy/AdvReac Type Severity Reaction Status Date / Time Penicillins [PCN] Allergy Rash Verified 07/04/22 11:54 Plan I have reviewed the history and physical and performed a pertinent physical examination on my patient. No changes have occurred unless specified. Time Spent With Patient Time: Total time managing care of this patient today ____ minutes.
--- NOTE | 2022-08-01 08:39 | HO.ANESPROP2 ---
[facility] Active Problems Active Problems: All Active Problems (Updated 07/23/22 @ 17:51 by KAROLINA Corbin) Routine medical exam (Acute) Major depressive disorder, recurrent severe without psychotic features (Acute) OCD (obsessive compulsive disorder) (Acute) Alcohol use disorder, severe, in sustained remission (Acute) Past Medical History Medical History (Updated 07/23/22 @ 17:51 by KAROLINA Corbin) Abdominal hernia Alcohol use disorder, severe, in sustained remission Major depressive disorder, recurrent severe without psychotic features No known health problems OCD (obsessive compulsive disorder) Family History Family history of problems with anesthesia: No Surgical History History of Problems with Anesthesia: No Social History Social History (Updated 07/23/22 @ 17:50 by KAROLINA Corbin) Household Members: Significant Other and Children Housing: House Do you presently have visiting nurse or other home services: No Patient Tobacco Use Status: Former Tobacco user Tobacco use type: Smokeless Tobacco e-Cigarette/Vaping Use: Never Used Second Hand Smoke Exposure: No Advance Directives: No Advance Directives Information Provided: Yes service: No Sexual orientation: Straight/Heterosexual Meds Allergies Allergy/AdvReac Type Severity Reaction Status Date / Time Penicillins [PCN] Allergy Rash Verified 07/04/22 11:54 Home Medications Medication Instructions Recorded Confirmed Last Taken Type lorazepam 0.5 mg tablet 1 tab PO TID PRN Anxiety 07/20/22 07/20/22 Unknown History nicotine (polacrilex) 2 mg gum 4 mg buccal Q2H 07/20/22 07/20/22 Unknown History quetiapine 300 mg tablet,extended 1 tab PO BEDTIME 07/20/22 07/20/22 Unknown History release 24 hr Exam Exam Date and Time: August 01, 2022 0839 Height,Weight and Vital Signs: Height 5 ft 11 in Weight 102.058 kg Last Vital Signs Temp 98.4 F 08/01/22 08:30 Pulse 70 08/01/22 08:30 Resp 17 08/01/22 08:30 BP 142/85 H 08/01/22 08:30 Pulse Ox 98 08/01/22 08:30 O2 Del Method 08/01/22 08:30 O2 Flow Rate 3 08/01/22 08:30 Pertinent Lab Results Pertinent Lab Results: Laboratory Tests 08/01/22 06:15 COVID-19 (LEA) Negative COVID-19 Clin Com See Note Airway Mallampati Class: III TM Dist: >3cm Neck ROM: Full Assessment and Plan Assessment Anesthesia Assessment: Anesthesia Plan Discussed and Chart Reviewed Final Anesthetic Review Family History of Problems with Anesthesia: No History of Problems with Anesthesia: No NPO: Yes ASA Class: III Final Preanesthetic Review: No Changes in Pt Med Stat, Meds/Allgs Chart Reviewed, Consent Obtained/Reviewed and Anes Risks/Benef Reviewed Patient Risk: Low Procedure Risk: Intermediate Anesthetic Plan Anesthetic Plan: GA Disposition: Standard PACU
--- NOTE | 2022-08-01 08:49 | HO.ECTPROC ---
ECT Procedure Note Diagnosis/Treatment Date of Service: 08/01/22 Diagnosis: Major Depressive Disorder Previous ECT Date: 07/30/22 Current Treatment Number: 4 Treatment: Series Interval Clinical Notes: pt feeling somewhat better no c/o side effects Time: Total time managing care of this patient today ____ minutes. ECT Settings Device: THYMATRON DGx Program/Pulse Width: 0.25 Energy Percent: 35 Seizure Duration By EEG (in seconds): 88 Medications Administration General Anesthetic: Etomidate (16) Muscle Relaxant: Rocuronium (65 plus 5) Ancillary Medications Cardiovascular Medications: Glycopyrrolate (0.2) Airway Management Airway Management: Bag Mask Ventilation Treatment Recommendations Energy Percent: 25 Notes: inc nya 70 mg have repeat dose robinal ready
== END 2022-08-01 09:52 | disposition home or self-care (01) ==
PROVIDERS: Visit Provider Psychiatry & Neurology Psychiatry
PROC: (CPT 90870; principal; 2022-08-01 07:30)
DX: F33.2 Major depressive disorder, recurrent severe without psychotic features (principal); F42.9 Obsessive-compulsive disorder, unspecified; Z79.899 Other long term (current) drug therapy; Z88.0 Allergy status to penicillin; F10.11 Alcohol abuse, in remission; Z87.891 Personal history of nicotine dependence; Z20.822 Contact with and (suspected) exposure to COVID-19
CPT/HCPCS: 87635; 90870; J0461; J1885; J2405

== ENCOUNTER → 2022-08-03 06:04 | Day surgery (SDC) | payer OTHER, SELFPAY ==
[2022-08-03 06:36] LABS: COVID-19 Test Negative (Negative); IDNOW Serial# 16C4AD1C
[2022-08-03 06:43] VITALS: BMI 30.7
--- NOTE | 2022-08-03 07:16 | MHC.SHP ---
Pre-Procedural Eval Section A Date of Service: 08/03/22 The patient is an INPATIENT: No Changes since office visit: No Cold of Flu in the past 2 weeks, No New Medical Problems, No Changes in Medication and No Patient answered all questions The History & Physical has been completed within 30 days and I have reviewed it.: Yes Section B Chief Complaint: depression Allergies: Allergies Allergy/AdvReac Type Severity Reaction Status Date / Time Penicillins [PCN] Allergy Rash Verified 07/04/22 11:54 Plan I have reviewed the history and physical and performed a pertinent physical examination on my patient. No changes have occurred unless specified. Time Spent With Patient Time: Total time managing care of this patient today ____ minutes.
--- NOTE | 2022-08-03 07:44 | HO.ECTPROC ---
ECT Procedure Note Diagnosis/Treatment Date of Service: 08/03/22 Previous ECT Date: 08/01/22 Current Treatment Number: 5 Treatment: Series Interval Clinical Notes: The patient reported improvement of dysphoira, no side effects with previous ECT. PROCEDURE CANCELLED SINCE HIS BP WAS HIGH EVEN WITH LABETOLOL GIVEN SEVERAL TIMES. Time: Total time managing care of this patient today __30__ minutes. ECT Settings Device: THYMATRON DGx Electrode Placement: Right Unilateral Program/Pulse Width: 0.25 Energy Percent: 25 Medications Administration General Anesthetic: Etomidate (16) Muscle Relaxant: Rocuronium (70) Ancillary Medications Analgesics: Torodol - Pre ECT Anti-emetics: Zofran - Pre ECT Cardiovascular Medications: Glycopyrrolate Airway Management Airway Management: Bag Mask Ventilation Treatment Recommendations Notes: BP RUNNING OVER 200/140 BEFORE PROCEDURE, AFTER ETOMIDATE AND RONCURONIUM WAS GIVEN. RECEIVED SEVERAL TIMES LABETOLOL AND STILL HIGH. PROCEDURE CANCELLED FOR TODAY Pt Tolerated Procedure w/o Issue: Yes
--- NOTE | 2022-08-03 08:11 | PM.EVENT ---
Event Note Date of Service: 08/03/22 Event Note: ECT WAS CANCELLED SINCE BP WAS HIGH BEFORE PROCEDURE, HE RECEIVED SEVERAL DOSE OF LABETOLOL, NO IMPROVEMENT. Time Spent With Patient Time: Total time managing care of this patient today _20___ minutes.
[2022-08-03 08:18] VITALS: BP 160/124; PULSE 70; RESP 23; TEMP 36.2; O2SAT 94
--- NOTE | 2022-08-03 08:20 | HO.ANESPROP2 ---
HPI - Anesthesia Eval Consult details Narrative: 41 yo male patient for ECT PMFSH Active Problems Active Problems: All Active Problems (Updated 07/23/22 @ 17:51 by KAROLINA Corbin) Routine medical exam (Acute) Major depressive disorder, recurrent severe without psychotic features (Acute) OCD (obsessive compulsive disorder) (Acute) Alcohol use disorder, severe, in sustained remission (Acute) Past Medical History Medical History Abdominal hernia Alcohol use disorder, severe, in sustained remission Major depressive disorder, recurrent severe without psychotic features No known health problems OCD (obsessive compulsive disorder) Family History Family history of problems with anesthesia: No Surgical History History of Problems with Anesthesia: No Social History Social History Household Members: Significant Other and Children Housing: House Do you presently have visiting nurse or other home services: No Patient Tobacco Use Status: Former Tobacco user Tobacco use type: Smokeless Tobacco e-Cigarette/Vaping Use: Never Used Second Hand Smoke Exposure: No Advance Directives: No Advance Directives Information Provided: Yes service: No Sexual orientation: Straight/Heterosexual Meds Allergies Allergy/AdvReac Type Severity Reaction Status Date / Time Penicillins [PCN] Allergy Rash Verified 07/04/22 11:54 Home Medications Medication Instructions Recorded Confirmed Last Taken Type lorazepam 0.5 mg tablet 1 tab PO TID PRN Anxiety 07/20/22 07/20/22 Unknown History nicotine (polacrilex) 2 mg gum 4 mg buccal Q2H 07/20/22 07/20/22 Unknown History quetiapine 300 mg tablet,extended 1 tab PO BEDTIME 07/20/22 07/20/22 Unknown History release 24 hr Exam Exam Date and Time: August 03, 2022 0820 Height,Weight and Vital Signs: Height 5 ft 11 in Weight 99.79 kg Vital Signs Temp Pulse Resp BP Pulse Ox O2 Del Method O2 Flow Rate 96 13 145/91 98 2 08/03/22 07:53 08/03/22 07:53 08/03/22 07:53 08/03/22 07:53 08/03/22 07:53 08/03/22 07:53 08/03/22 07:53 Pertinent Lab Results Pertinent Lab Results: Laboratory Tests 08/03/22 06:13 COVID-19 (LEA) Negative COVID-19 Clin Com See Note Airway Mallampati Class: III TM Dist: >3cm Neck ROM: Full Loose/Missing/Broken Teeth: No (Denies broken, loose, missing teeth) Heart: RRR Lungs: CTAB Assessment and Plan Assessment Anesthesia Assessment: Anesthesia Plan Discussed and Chart Reviewed Final Anesthetic Review Family History of Problems with Anesthesia: No History of Problems with Anesthesia: No NPO: Yes ASA Class: III Final Preanesthetic Review: No Changes in Pt Med Stat, Meds/Allgs Chart Reviewed, Consent Obtained/Reviewed and Anes Risks/Benef Reviewed Patient Risk: Intermediate Procedure Risk: Intermediate Assessment/Block/Sedation in SS: Assess/Block/Sedation-SS Anesthetic Plan Anesthetic Plan: GA Disposition: Standard PACU
[2022-08-03 08:23] VITALS: BP 136/97; PULSE 76; RESP 16; O2SAT 93
[2022-08-03 08:28] VITALS: BP 138/99; PULSE 77; RESP 17; O2SAT 94
[2022-08-03 08:33] VITALS: BP 134/96; PULSE 72; RESP 12; O2SAT 96
[2022-08-03 08:48] VITALS: BP 120/88; PULSE 73; RESP 17; TEMP 36.2; O2SAT 96
[2022-08-03 09:03] VITALS: BP 114/78; PULSE 72; RESP 17; TEMP 36.2; O2SAT 96
== END ==
PROVIDERS: Visit Provider Psychiatry & Neurology Psychiatry
DX: F33.2 Major depressive disorder, recurrent severe without psychotic features (principal); Z53.09 Procedure and treatment not carried out because of other contraindication; I10 Essential (primary) hypertension; Z79.899 Other long term (current) drug therapy; Z87.891 Personal history of nicotine dependence; Z20.822 Contact with and (suspected) exposure to COVID-19
CPT/HCPCS: 87635; J1885; J2405

== ENCOUNTER 2022-08-03 09:30 | Observation (INO) | payer OTHER, SELFPAY ==
--- NOTE | ~2022-08-03 | XR_ITS ---
EXAMINATION: XR CHEST CLINICAL INFORMATION: Chest pain COMPARISON: None TECHNIQUE: Frontal view of the chest was obtained. FINDINGS: The lungs are well expanded. There is no focal consolidation, edema, or effusion. No pneumothorax. The cardiomediastinal silhouette is within normal limits. No acute osseous abnormality. XR/XR chest 1V IMPRESSION: Clear lungs.
--- NOTE | ~2022-08-03 | CT_ITS ---
EXAMINATION: CT HEAD WITHOUT CONTRAST CLINICAL INFORMATION: Hypertensive crisis in OR. Headache. COMPARISON: None. TECHNIQUE: Contiguous axial imaging was performed from the skull base to vertex without intravenous contrast. This CT examination was performed using dose optimization techniques as appropriate, variously including the following: * Automated exposure control * Adjustment of mA and/or kV according to patient size (this includes techniques or standardized protocols for targeted exams where dose is matched to indication/reason for exam; i.e. extremities or head) Use of iterative reconstruction technique DLP: 698 mGy-cm. FINDINGS: There is no evidence of acute intracranial hemorrhage or territorial infarction. No abnormal mass effect or midline shift is seen. Gaming to white matter differentiation is well preserved. No extra-axial fluid collections are identified. No hydrocephalus. No significant volume loss. There is no abnormal attenuation within the brain parenchyma. The osseous structures and soft tissues are normal. The mastoid air cells and visualized portions of the paranasal sinuses are well aerated. CT/CT head/brain wo IV con IMPRESSION: No acute intracranial pathology.
--- NOTE | 2022-08-03 09:42 | MHC.EDTECH ---
@[id number] called PACU per request of Dr. Durham to get the name of the anesthesiologist. The escrow secretary stated the name was Angela Quiles.
--- NOTE | 2022-08-03 09:45 | ECG_ITS ---
Test Reason : HIGH BP Blood Pressure : / mmHG Vent. Rate : 068 BPM Atrial Rate : 068 BPM P-R Int : 160 ms QRS Dur : 086 ms QT Int : 392 ms P-R-T Axes : 017 005 039 degrees QTc Int : 416 ms Normal sinus rhythm Normal EKG When compared with ECG of 23-JUL-2022 15:23, No significant change was found Referred By: Lluvia Durham Electronically Signed By:KELIN KHAN
--- NOTE | 2022-08-03 09:45 | ED.GENADULT ---
HPI - General Adult General Chief complaint: General Medical Stated complaint: High BP Time Seen by Provider: 08/03/22 09:47 Source: patient Mode of arrival: other History of Present Illness HPI narrative: This is a 41-year-old male with significant past medical history of OCD/MDD, alcohol use disorder who routinely comes in for ECT for which he presented this morning. The history is provided by the anesthesiologist who states that she induced the patient for the ECT exam with 16 mg of etomidate and also administered glycopyrrolate for noted prior bradycardic episodes post ECT. Dr. Quiles states that patient then went up to a blood pressure of 250/178 and required a total of 40 mg of labetalol and 40 mg of propofol in she notes that diastolic is now down to 120, patient is understandably groggy it the time that she is discussing the patient's condition with me and patient did not receive his scheduled ECT today. Patient denies any visual/auditory/speech difficulties and denies any unilateral symptoms but does complain of ?chest tightness and is currently on supplemental oxygen for hypoxia. Related Data Home Medications Medication Instructions Recorded Confirmed lorazepam 0.5 mg tablet 1 tab PO TID PRN Anxiety 07/20/22 07/20/22 nicotine (polacrilex) 2 mg gum 4 mg buccal Q2H 07/20/22 07/20/22 quetiapine 300 mg tablet,extended 1 tab PO BEDTIME 07/20/22 07/20/22 release 24 hr Previous Rx's Medication Instructions Recorded quetiapine 100 mg tablet 100 mg PO DAILY 30 days #30 tabs 07/27/22 Allergies Allergy/AdvReac Type Severity Reaction Status Date / Time Penicillins [PCN] Allergy Rash Verified 07/04/22 11:54 Review of Systems Review of Systems: Pertinent positives and negatives as stated in HPI [facility] Past Medical History Source: nursing notes reviewed Medical History Abdominal hernia Alcohol use disorder, severe, in sustained remission Major depressive disorder, recurrent severe without psychotic features No known health problems OCD (obsessive compulsive disorder) Social History Social History Household Members: Significant Other and Children Housing: House Do you presently have visiting nurse or other home services: No Alcohol intake: never Patient Tobacco Use Status: Former Tobacco user Tobacco use type: Smokeless Tobacco Smoked in Last 30 Days: No e-Cigarette/Vaping Use: Never Used Second Hand Smoke Exposure: No Use of substances other than those prescribed or required for medical reasons: No Advance Directives: No Advance Directives Information Provided: No service: No Sexual orientation: Straight/Heterosexual Physical Exam ED Vital Signs: Vital Signs - 24 hr 08/03/22 10:20 08/03/22 11:17 08/03/22 11:46 Temperature 97.7 F Pulse Rate 73 63 Respiratory Rate 16 8 L Blood Pressure 119/81 130/87 Pulse Oximetry 97 96 96 Oxygen Delivery Method Nasal Cannula Room Air Room Air BMI result Body Mass Index 30.7 VITAL SIGNS: Reviewed. GENERAL: Well developed, well nourished, in no acute distress. HEAD: Normocephalic/atraumatic EYES: PERRLA, EOMI EARS: Ext canals without abnormalit OROPHARYNX: no oral lesions noted, posterior pharynx clear LUNGS: Normal breath sounds. No adventitious sounds or accessory muscle use. SpO2<96> on 2 L nasal cannula CARDIOVASCULAR: Regular rate and rhythm without noted murmurs ABDOMEN: Soft, non-tender, non-distended with bowel sounds. MUSCULOSKELETAL: No tenderness, deformities, or effusions noted on gross inspection. EXTREMITIES: No cyanosis, clubbing or edema. SKIN: Inspection of the skin reveals no rashes NEUROLOGIC: Alert and oriented x 4. Strength and sensation to light touch were grossly intact x 4, cranial nerves 2-12 are grossly intact. Medical Decision Making Medical Decision Making MDM Narrative: 41-year-old male, for whom I did a literature search for hypertension and glycopyrrolate. There is a reported 2009 with exaggerated hypertensive response to glycopyrrolate therapy for bradycardia associated with high-dose dexmedetomidate. I strongly feel that this was medication induced in nature as patient has no underlying history to further support and the glycopyrrolate was a new addition. Will obtain basic lab work, chest x-ray, EKG, patient is still requiring supplemental oxygen at this time. I reviewed all investigations my interpretation is that patient has up trending troponins without acute EKG changes, I discussed with cardiology who does recommend admission for observation and a complete echo. Differential Diagnosis Differential Diagnoses: The differential diagnosis associated with the presentation includes Please see the discussion above Consult Healthcare Provider Management of the patient was discussed with: Lime Trimmer 1221: Cardiology who recommends admission for observation and a complete echo. 1235: I notified inpatient hospitalist regarding planned and I am awaiting return call. Lab Data MDM Lab Attestation statement: I reviewed the patient's lab results. Please see discussion above 08/03/22 09:51 08/03/22 09:51 Labs: Lab Results 08/03/22 08/03/22 08/03/22 Range/Units 09:51 09:51 09:51 WBC 8.2 (4.8-10.8) X10*3/uL RBC 4.85 (4.60-5.80) X10*6/uL Hgb 15.4 (14.0-18.0) g/dl Hct 42.6 (42.0-52.0) % MCV 87.8 (80.0-98.0) fL MCH 31.8 (27.0-33.0) pg MCHC 36.2 H (31.0-36.0) g/dl RDW 11.7 (11.0-16.0) % Plt Count 178 (160-400) X10*3/uL MPV 10.2 (9.4-12.4) fL Immature Gran % (Auto) 0.4 (0.0-0.4) % Neut % (Auto) 76.6 H (45-73) % Lymph % (Auto) 16.3 L (20-40) % [place] % (Auto) 4.8 (2-11) % Eos % (Auto) 1.5 (0-4) % Baso % (Auto) 0.4 (0-2) % Lymph # (Auto) 1.3 (1.2-4.9) X10*3/uL [place] # (Auto) 0.4 (0.1-1.2) X10*3/uL Eos # (Auto) 0.1 (0.0-0.4) X10*3/uL Baso # (Auto) 0.0 (0.0-0.2) X10*3/uL Abs Immat Gran (auto) 0.03 (0.00-0.03) X10*3/uL Absolute Neuts (auto) 6.3 (2.0-8.3) x10*3/uL Absolute Nucleated RBC 0.000 (0.0-0.012) X10*3/uL Nucleated RBC % (auto) 0.0 (0.0-0.2) /100WBC Sodium 142 (135-145) mmol/L Potassium 4.2 (3.3-5.1) mmol/L Chloride 107 (96-108) mmol/L Carbon Dioxide 27 (22-29) mmol/L Anion Gap 12 (12-20) BUN 23 H (9-16) mg/dL Creatinine 1.11 (0.5-1.4) mg/dL Estim Creat Clear Calc TNP Estimated GFR > 60 Random Glucose 101 (60-115) mg/dL Calcium 9.1 (8.4-10.2) mg/dL Total Bilirubin 0.9 (0.0-1.0) mg/dL AST 27 (5-37) U/L ALT 63 H (0-40) U/L Alkaline Phosphatase 94 (39-117) U/L Troponin I High Sens 35.2 H (<3.5-35.0) ng/L Total Protein 6.4 L (6.5-8.0) g/dL Albumin 4.1 (3.5-5.0) g/dL 08/03/22 Range/Units 11:39 WBC (4.8-10.8) X10*3/uL RBC (4.60-5.80) X10*6/uL Hgb (14.0-18.0) g/dl Hct (42.0-52.0) % MCV (80.0-98.0) fL MCH (27.0-33.0) pg MCHC (31.0-36.0) g/dl RDW (11.0-16.0) % Plt Count (160-400) X10*3/uL MPV (9.4-12.4) fL Immature Gran % (Auto) (0.0-0.4) % Neut % (Auto) (45-73) % Lymph % (Auto) (20-40) % [place] % (Auto) (2-11) % Eos % (Auto) (0-4) % Baso % (Auto) (0-2) % Lymph # (Auto) (1.2-4.9) X10*3/uL [place] # (Auto) (0.1-1.2) X10*3/uL Eos # (Auto) (0.0-0.4) X10*3/uL Baso # (Auto) (0.0-0.2) X10*3/uL Abs Immat Gran (auto) (0.00-0.03) X10*3/uL Absolute Neuts (auto) (2.0-8.3) x10*3/uL Absolute Nucleated RBC (0.0-0.012) X10*3/uL Nucleated RBC % (auto) (0.0-0.2) /100WBC Sodium (135-145) mmol/L Potassium (3.3-5.1) mmol/L Chloride (96-108) mmol/L Carbon Dioxide (22-29) mmol/L Anion Gap (12-20) BUN (9-16) mg/dL Creatinine (0.5-1.4) mg/dL Estim Creat Clear Calc Estimated GFR Random Glucose (60-115) mg/dL Calcium (8.4-10.2) mg/dL Total Bilirubin (0.0-1.0) mg/dL AST (5-37) U/L ALT (0-40) U/L Alkaline Phosphatase (39-117) U/L Troponin I High Sens 118.3 H* D (<3.5-35.0) ng/L Total Protein (6.5-8.0) g/dL Albumin (3.5-5.0) g/dL Independent Interpretation I performed an independent interpretation of an: EKG Interpretation: Normal sinus rhythm, HR-68, no STEMI, ST-T abnormalities, CT/QRS/QTC are within limits. Radiology Impression Radiologist Impression: My interpretation is in agreement with radiologist impression of the imaging study. External Record Review External record reviewed: Outpatient record and Prior outpatient labs Critical Care Time Critical Care Time Critical Care Time: Yes Total Critical Care Time: 45 Attestation: I personally attest to this time spent taking care of the patient. Discharge Plan Discharge Clinical Impression: Hypertensive crisis, Elevated troponin Patient Disposition: Admitted As Inpatient Prescriptions: No Action lorazepam 0.5 mg tablet 1 tab PO TID PRN (Reason: Anxiety) quetiapine 300 mg tablet extended release 24 hr 1 tab PO BEDTIME nicotine (polacrilex) 2 mg Gum 4 mg BUCCAL Q2H quetiapine 100 mg Tablet 100 mg PO DAILY 30 Days Qty: 30 0RF
[2022-08-03 09:56] LABS: MANUAL DIFF FLAG NO
[2022-08-03 09:59] LABS: Basophils Percent Auto 0.4 % (0-2); Eosinophils Absolute Auto 0.1 X10*3/uL (0.0-0.4); Eosinophils Percent Auto 1.5 % (0-4); Hematocrit 42.6 % (42.0-52.0); Hemoglobin 15.4 g/dl (14.0-18.0); Imm Gran Abs Auto 0.03 X10*3/uL (0.00-0.03); Imm Gran Pct Auto 0.4 % (0.0-0.4); Lymphocytes Absolute Auto 1.3 X10*3/uL (1.2-4.9); Lymphocytes Percent Auto 16.3 % (20-40); Mean Corpuscular HGB Conc 36.2 g/dl (31.0-36.0); Mean Corpuscular Hemoglobin 31.8 pg (27.0-33.0); Mean Corpuscular Volume 87.8 fL (80.0-98.0); Mean Platelet Volume 10.2 fL (9.4-12.4); Monocytes Absolute Auto 0.4 X10*3/uL (0.1-1.2); Monocytes Percent Auto 4.8 % (2-11); Neutrophils Absolute Auto 6.3 x10*3/uL (2.0-8.3); Neutrophils Percent Auto 76.6 % (45-73); Platelet Count 178 X10*3/uL (160-400); Red Blood Count 4.85 X10*6/uL (4.60-5.80); Red Cell Distribution Width 11.7 % (11.0-16.0); White Blood Count 8.2 X10*3/uL (4.8-10.8)
[2022-08-03 10:20] VITALS: BP 119/81; PULSE 73; RESP 16; TEMP 36.5; O2SAT 97; BMI 30.7
[2022-08-03 10:20] LABS: Alanine Aminotransferase 63 U/L (0-40); Albumin Level 4.1 g/dL (3.5-5.0); Alkaline Phosphatase 94 U/L (39-117); Anion Gap 12 (12-20); Aspartate Amino Transferase 27 U/L (5-37); Bilirubin Total 0.9 mg/dL (0.0-1.0); Blood Urea Nitrogen 23 mg/dL (9-16); Calcium 9.1 mg/dL (8.4-10.2); Carbon Dioxide 27 mmol/L (22-29); Chloride 107 mmol/L (96-108); Estimated Glomerular Filt Rate > 60; Glucose Random 101 mg/dL (60-115); Potassium 4.2 mmol/L (3.3-5.1); Sodium 142 mmol/L (135-145); Total Protein 6.4 g/dL (6.5-8.0)
[2022-08-03 10:27] LABS: Troponin-I High Sensitivity 35.2 ng/L (<3.5-35.0)
[2022-08-03 11:17] VITALS: BP 130/87; PULSE 63; RESP 8; O2SAT 96
[2022-08-03 11:46] VITALS: O2SAT 96
[2022-08-03 12:18] LABS: Troponin-I High Sensitivity 118.3 ng/L (<3.5-35.0)
--- NOTE | 2022-08-03 12:37 | CA_ITS ---
Transthoracic Echocardiogram Patient (Last, First, Middle): Bashir Mcfadden J Gender: Male Date of : 1980 Age: 41 Procedure Date: 08/03/2022 Procedure Type: Transthoracic Echocardiogram Location: ER Height: 180.34 cm Weight: 99.79 kg BSA: 2.20 m2 Heart Rate: bpm BP: 139 / 62 mmHg Business Integration Analyst: [place]/TO Referring MD: Lluvia Durham MD Symptoms: Hypertensive crisis with up trending troponins Study Quality: Fair/Contrast ECG Rhythm: Sinus Conclusions: - The left ventricular systolic function is mildly decreased. The calculated ejection fraction is 51% by biplane method. - No obvious valvular pathology seen on this study. Findings Procedure Information Contrast agent, definity, is being given per protocol without apparent complications. Left Ventricle Normal left ventricular cavity size. There is mildly increased left ventricular wall thickness. The left ventricular systolic function is mildly decreased. The calculated ejection fraction is 51% by biplane method. There is no evidence of regional wall motion abnormalities. Diastolic function is normal for age. Right Ventricle Normal right ventricular cavity size and systolic function. Atria Both atria are normal in size. Aortic Valve There is a normal trileaflet aortic valve. There is no aortic valve stenosis. There is no aortic valve regurgitation. Mitral Valve The mitral valve appears normal. There is no mitral valve regurgitation. There is no mitral valve stenosis. Pulmonic Valve The pulmonic valve is likely normal. Tricuspid Valve Normal tricuspid valve structure. There is trace tricuspid valve regurgitation. There is no evidence of pulmonary hypertension. Great Vessels The asc aorta is normal in size. Venous The inferior vena cava was not well visualized. The inferior vena cava is normal in size. Pericardium/Pleural There is no evidence of pericardial effusion. Prior Study Comparison No prior study available for comparison. Recommendations, Care & Conclusions No obvious valvular pathology seen on this study. Measurements 2D Linear Measurements IVSd: 1.16 0.6-0.9/0.6-1.0 cm LVIDd: 4.40 3.9-5.3/4.2-5.9 cm LVIDd Index: 2.00 2.4-3.2/2.2-3.1 cm/m2 LVIDs: 2.99 2.0-3.6 cm LVPWd: 1.14 0.7-1.1 cm LA Diam: 3.90 2.7-3.8/3.0-4.0 cm LAIDs Index: 1.77 1.5-2.3 cm/m2 LV Mass: 224.20 67-162/88-224 g LV Mass Index: 101.91 43-95/49-115 g/m2 LVOT Diam: 2.30 3.0+(-)1.3 cm 2D Systolic Function EF 4C: 51.10 >55% EF 2C: 53.80 >55% EF BiP: 50.90 >55% Mitral Valve MV Pk E: 0.82 MV PK A: 0.72 MV Decel Time: 177.00 E/A: 1.10 E'Lateral: 10.20 E'Medial: 9.46 E/E' Med: 8.60 E/E' Lat: 8.00 PHT: 52.00 MVA PHT: 4.23 Decel Latimer: 4.63 Aortic Valve AoV Pk Tato: 1.29 AoV Mn Tato: 0.94 AoV VTI: 0.27 AoV Pk Grad: 7.00 Aov Mn Grad: 4.00 [place] Cont.VTI: 3.48 LVOT LVOT Pk Tato: 1.12 LVOT Mn Tato: 0.79 LVOT VTI: 0.23 LVOT Pk Grad: 5.00 LVOT Mn Grad: 3.00 LVOT Diam: 2.30 LVOT Area: 4.15 Diastolic Function MV Pk E: 0.82 MV Pk A: 0.72 E/A: 1.10 E'Medial: 9.46 E/E' Med: 8.60 E' Laterial: 10.20 E/E' Lat: 8.00 Right Ventricle TAPSE (mm): 20.80 TVS' Tato: 12.40 Tricuspid Valve RA Press: 3.00 Great Vessels Aorta Sinus of Valsalva: 3.60 2.0-3.5 cm Ao Asc: 3.00 2.1-3.4 cm Pulmonary Valve PV Pk Tato: 1.06 Peak PV Grad: 4.00 Updated in Other Vendor System with Status of Final Ajit Egan MD electronically signed on 08/03/2022 3:27:40 PM with status of Final
--- NOTE | 2022-08-03 12:43 | PHA.MEDREC ---
Pharmacy Consult ? Medication Reconciliation Pharmacy has completed the medication reconciliation. Patient discharge from inpatient adult the medical center on 07/28. Med rec complete by discharge summary. Miri Raphael, LuciD
[2022-08-03] MEDS: Acetaminophen 325 MG TABLET 975 MG PO (12:46)
--- NOTE | 2022-08-03 13:19 | P.HPHOSP_ITS ---
History of Present Illness Date of Service: 08/03/22 Attending physician on admission: Sheldon Graham Chief Complaint: Hypertensive crisis Pt is a 41-year-old male with a PMH significant for?OCD/MDD and alcohol use disorder with last drink over a year ago who presents to the ED after having a hypertensive crisis in the OR when being prepped for ECT. Anesthesia notes that patient's BP elevated to as high as 250/178. Pt was given 40mg of labetalol and 40mg of propofol which eventually brought his diastolic BP down to 120. The patient's BP upon presentation to the ED was 160/124. Of note, the patient was being seen for his 5th ECT procedure since 07/25/2022; he has apparently tolerate d the four previous procedures well. Pt notes his BP has been noted to be elevated at the doctor's office, but he is not on any anti-hypertensives or keeping a BP log at home. Pt's father has HTN, but no family history for CAD or adverse reactions to anesthesia. Patient currently only complains a mild headache, rated 4/10. Denies chest pain/pressure, palpitations. No shortness of breath. Denies fever, chills, nausea, vomiting, abdominal pain. No blurriness, diplopia, or any other changes in vision. In the ED patient's initial BP was 160/124. Labs were significant for elevated troponin of 35.2 with repeat of 118.3. All other labs unremarkable. CXR was negative for acute findings. CT?of head/brain pending. EKG demonstrated normal sinus rhythm with no evidence of ST elevations or depressions. Pt was treated with aspirin 325mg and acetaminophen for headache. Pt will be admitted to [facility] for observation and further evaluation hypertensive crisis. Review of Systems Review of Systems: Mild headache, rated 4/10 Denies chest pain/pressure, palpitations No shortness of breath Denies fever, chills, nausea, vomiting, abdominal pain No numbness or tingling in extremities Denies blurriness, diplopia, or other vision changes Yes all other systems are reviewed and are negative [facility] Medical History Abdominal hernia Alcohol use disorder, severe, in sustained remission Major depressive disorder, recurrent severe without psychotic features No known health problems OCD (obsessive compulsive disorder) Family History Maternal Grandfather Myocardial infarction Social History Household Members: Spouse and Children Housing: House Do you presently have visiting nurse or other home services: No Alcohol intake: never Patient Tobacco Use Status: Former Tobacco user Tobacco use type: Smokeless Tobacco e-Cigarette/Vaping Use: Never Used Second Hand Smoke Exposure: No service: No Current occupational status: other Sexual orientation: Straight/Heterosexual Meds Allergies Allergy/AdvReac Type Severity Reaction Status Date / Time Penicillins [PCN] Allergy Rash Verified 07/04/22 11:54 Active Medications: Current Medications Pharmacy Consult (Consult Rx Perform Med Rec) 1 each MISCELLANE ONCE PRN PRN Reason: Consult order Home Medications Medication Instructions Recorded Confirmed Last Taken Type lorazepam 0.5 mg tablet 1 tab PO TID PRN Anxiety 07/20/22 08/03/22 Unknown [place] nicotine (polacrilex) 2 mg gum 4 mg buccal Q2H 07/20/22 08/03/22 Unknown History quetiapine 300 mg tablet 1 tab PO BEDTIME 08/03/22 08/03/22 Unknown History Physical Exam Vital Signs and Narrative: Vital Signs: Last Vital Signs Temp 97.7 F 08/03/22 10:20 Pulse 63 08/03/22 11:17 Resp 8 L 08/03/22 11:17 BP 130/87 08/03/22 11:17 Pulse Ox 96 08/03/22 11:46 O2 Del Method 08/03/22 11:46 Oxygen Flow Rate 2 08/03/22 10:20 BMI result Body Mass Index 30.7 Constitutional: Alert, in no acute distress. Mental Status: Oriented to person, place and time. Eyes: Pupils are equal, round, and reactive to light. Ear, Nose, and Throat: Oropharynx clear, mucous membranes moist. Ears and nose without deformities. Trachea midline. Respiratory: Clear to auscultation bilaterally. No wheezing, rales, or rhonchi. Cardiovascular: S1, S2 regular. No murmurs, rubs, or gallops. Gastrointestinal: Abdomen soft, non-tender, non-distended. Normal bowel sounds. Neurologic: Cranial nerves II-XII are grossly intact. No focal neurological deficits. Moves all extremities spontaneously. Skin: No rashes or lesions noted. Musculoskeletal: No cyanosis or clubbing. Extremities: No edema. Psychiatric: Normal mood and affect. Results Labs 08/03/22 09:51 08/03/22 09:51 Labs: Laboratory Results - last 24 hr 08/03/22 08/03/22 08/03/22 09:51 09:51 09:51 MCV 87.8 MCH 31.8 MCHC 36.2 H RDW 11.7 Plt Count 178 MPV 10.2 Immature Gran % (Auto) 0.4 Neut % (Auto) 76.6 H Lymph % (Auto) 16.3 L [place] % (Auto) 4.8 Eos % (Auto) 1.5 Baso % (Auto) 0.4 Lymph # (Auto) 1.3 [place] # (Auto) 0.4 Eos # (Auto) 0.1 Baso # (Auto) 0.0 Abs Immat Gran (auto) 0.03 Absolute Neuts (auto) 6.3 Absolute Nucleated RBC 0.000 Nucleated RBC % (auto) 0.0 Anion Gap 12 Estim Creat Clear Calc TNP Estimated GFR > 60 Random Glucose 101 Calcium 9.1 Total Bilirubin 0.9 AST 27 ALT 63 H Alkaline Phosphatase 94 Troponin I High Sens 35.2 H Total Protein 6.4 L Albumin 4.1 08/03/22 11:39 MCV MCH MCHC RDW Plt Count MPV Immature Gran % (Auto) Neut % (Auto) Lymph % (Auto) [place] % (Auto) Eos % (Auto) Baso % (Auto) Lymph # (Auto) [place] # (Auto) Eos # (Auto) Baso # (Auto) Abs Immat Gran (auto) Absolute Neuts (auto) Absolute Nucleated RBC Nucleated RBC % (auto) Anion Gap Estim Creat Clear Calc Estimated GFR Random Glucose Calcium Total Bilirubin AST ALT Alkaline Phosphatase Troponin I High Sens 118.3 H* D Total Protein Albumin Imaging Radiologist's Impressions: Impressions Chest X-Ray 08/03/22 10:10 IMPRESSION: Clear lungs. Assessment and Plan (1) Hypertensive crisis: Status: Acute (2) Elevated troponin: Status: Acute Plan Pt is a 41-year-old male with a PMH significant for?OCD/MDD and alcohol use disorder with last drink over a year ago who presents to the ED after having a hypertensive crisis in the OR when being prepped for ECT. Pt will be admitted to telemetry for observation and further evaluation hypertensive crisis. Hypertensive crisis Etiology unclear, possibly adverse reaction to anesthesia, but pt has had four other ECTs without incident Pt's BP spiked as high as 250/178 in the OR prior to ECT Pt given 40mg labetolol and 40mg propofol in OR Labs, CXR show no target-organ damage, CT of head pending Current BP 130/87 Admit to telemetry Closely monitor BP Elevated troponins Likely secondary to hypertensive crisis Initial troponin slightly elevated at 35.2 with repeat of 118.3 EKG showed normal sinus rhythm with no evidence of ST elevations or depressions Pt currently not complaining of chest pain/pressure Pt given aspirin 325mg in ED Echocardiogram Repeat troponin, trend labs Cardiology consult Headache Likely secondary to hypertensive crisis Pt's only complaint is of a slight headache, 4/10 CT of head to r/o acute intracranial abnormality Acetaminophen for pain management OCD/MDD Continue home meds Full Code Attending:?Dr. Graham DVT Prophylaxis: None; pt ambulatory Pt will require a hospitalization of at least two nights for treatment of? with . Pt will be admitted to telemetry for observation and further evaluation hypertensive crisis. Time Spent With Patient Time: Total time managing care of this patient today ____ minutes. Quality Stroke Does the patient have a stroke diagnosis?: No VTE Prior VTE?: No VTE Risk Level:: Medical - low VTE Device Contraindication: Treatment Not Indicated VTE Drug Contraindication: Treatment Not Indicated
[2022-08-03 14:00] LABS: COVID-19 Test Negative (Negative); IDNOW Serial# 6674DD1D
--- NOTE | 2022-08-03 14:39 | P.CONCA_ITS ---
History of Present Illness History of Present Illness Date of Service: 08/03/22 Chief complaint: Hypertensive crisis in or Narrative: This is a cardiology consultation regarding acute hypertension as well as elevated troponins. Patient has depression came for ECT therapy. It seems that he has been getting ECT therapy but did have some bradycardia issues. Hence apparently he got glycopyrrolate as well this time. Otherwise, it home date. In the prior visit from 2 days ago, it seems again he had at home at 8, glycopyrrolate and rocuronium. However, today after anaesthesia the blood pressure went extremely high. According to the information given, it was as much as 250/178 mm Hg. Then had received a labetalol and proper fall and blood pressure improved. Then he was sent to the emergency room for further care. According to the anesthesiologist who to care of the patient, he apparently did mention some chest discomfort at the time of acute hypertension. Currently, he states he feels okay. No known cardiovascular issues. He thinks he might have high blood pressure but patient does not know too much and states it has been up and down at different times. He does not take any medications for this. Review of Systems Review of Systems: Yes all other systems are reviewed and are negative Constitutional: Constitutional: Reports as per HPI Eyes: Eyes: Reports as per HPI ENT: Reports as per HPI Cardiovascular: Cardiovascular: Reports as per HPI, Denies acrocyanosis, Denies cool extremities, Denies chest pain, Denies leg edema, Denies lightheadedness, Denies palpitations and Denies dyspnea Respiratory: Respiratory: Reports as per HPI, Reports no additional respiratory complaints and Denies dyspnea Gastrointestinal: Gastrointestinal: Reports as per HPI and Reports no additional gastrointestinal complaints Genitourinary: Genitourinary: Reports no additional male genitourinary complaints and Reports as per HPI Musculoskeletal: Musculoskeletal: Reports no additional musculoskeletal complaints and Reports as per HPI Integumentary/Breasts: Skin/Breast: Reports system reviewed and no additional complaints, except as docu Neurologic: Reports system reviewed and no additional complaints, except as documented and Reports as per HPI Psychiatric: Psychiatric: Reports no additional psychiatric complaints and Reports as per HPI Endocrine: Endocrine: Reports no additional endocrine complaints, Reports as per HPI and Denies palpitations Hematologic/Lymphatic: Hematologic/Lymphatic: Reports no additional hematologic/lymphatic complaints and Reports as per HPI Allergic/Immunologic: Allergic/Immunologic: Reports no additional allergic/immunologic complaints and Reports as per [facility] Past Medical History Medical History Abdominal hernia Alcohol use disorder, severe, in sustained remission Major depressive disorder, recurrent severe without psychotic features No known health problems OCD (obsessive compulsive disorder) Family History Family History (Updated 08/03/22 @ 14:42 by Ajit Egan MD) Maternal Grandfather Myocardial infarction Social History Social History Household Members: Significant Other and Children Housing: House Do you presently have visiting nurse or other home services: No Alcohol intake: never Patient Tobacco Use Status: Former Tobacco user Tobacco use type: Smokeless Tobacco Smoked in Last 30 Days: No e-Cigarette/Vaping Use: Never Used Second Hand Smoke Exposure: No Use of substances other than those prescribed or required for medical reasons: No Advance Directives: No Advance Directives Information Provided: No service: No Sexual orientation: Straight/Heterosexual Meds Allergies Allergy/AdvReac Type Severity Reaction Status Date / Time Penicillins [PCN] Allergy Rash Verified 07/04/22 11:54 Active Medications: Current Medications Acetaminophen (Acetaminophen 325 Mg Tablet) 650 mg PO Q6H PRN PRN Reason: Pain, Mild (Pain Scale 1-3) Docusate Sodium (Docusate Sodium 100 Mg Capsule) 100 mg PO DAILY PRN PRN Reason: Constipation Lorazepam (Lorazepam 0.5 Mg Tablet) 0.5 mg PO TID PRN PRN Reason: Anxiety Nicotine Polacrilex (Nicotine Polacrilex 2 Mg Gum) 4 mg BUCCAL Q2H YOLIS Ondansetron HCl (Ondansetron Hcl 4 Mg/2 Ml Vial) 4 mg IVPUSH Q8H PRN PRN Reason: Nausea and Vomiting Pharmacy Consult (Consult Rx Perform Med Rec) 1 each MISCELLANE ONCE PRN PRN Reason: Consult order Quetiapine Fumarate (Quetiapine Fumarate 100 Mg Tablet) 100 mg PO DAILY YOLIS Quetiapine Fumarate (Quetiapine Fumarate 300 Mg Tablet) 300 mg PO BEDTIME YOLIS Sodium Chloride (0.9 % Sodium Chloride Flush 3 Ml Syringe) 3 ml IVFLUSH QSHIFT [facility] Home Medications Medication Instructions Recorded Confirmed Last Taken Type lorazepam 0.5 mg tablet 1 tab PO TID PRN Anxiety 07/20/22 08/03/22 Unknown History nicotine (polacrilex) 2 mg gum 4 mg buccal Q2H 07/20/22 08/03/22 Unknown History quetiapine 300 mg tablet 1 tab PO BEDTIME 08/03/22 08/03/22 Unknown History Physical Exam Vital Signs: Vital Signs: Last Vital Signs Temp 97.7 F 08/03/22 10:20 Pulse 63 08/03/22 11:17 Resp 8 L 08/03/22 11:17 BP 130/87 08/03/22 11:17 Pulse Ox 96 08/03/22 11:46 O2 Del Method 08/03/22 11:46 Oxygen Flow Rate 2 08/03/22 10:20 BMI result Body Mass Index 30.7 Const: General: comfortable and no acute distress Orien tation/consciousness: patient oriented x3 HEENT: Other: Unremarkable Head: Yes normal to inspection Neck: Neck: Yes normal visual inspection Chest: Chest palpation & inspection: normal inspection of the chest Resp: Auscultation: clear to auscultation bilaterally Cardio: Palpation: normal PMI Heart sounds: S1 normal heart sound present, S2 normal heart sound present, no gallops, no murmurs and no rubs GI: Palpation (GI): Soft to palpation Back/Spine/Pelvis: Other: unremarkable Skin: General skin exam: no rashes or lesions noted Neuro: General: patient oriented x3 Extrem: General: Yes normal to inspection Psych: Mental Status: mental status grossly normal Objective Labs and Meds 08/03/22 09:51 08/03/22 09:51 Lab results: Laboratory Results - last 24 hr 08/03/22 08/03/22 08/03/22 09:51 09:51 09:51 WBC 8.2 RBC 4.85 Hgb 15.4 Hct 42.6 MCV 87.8 MCH 31.8 MCHC 36.2 H RDW 11.7 Plt Count 178 MPV 10.2 Immature Gran % (Auto) 0.4 Neut % (Auto) 76.6 H Lymph % (Auto) 16.3 L [place] % (Auto) 4.8 Eos % (Auto) 1.5 Baso % (Auto) 0.4 Lymph # (Auto) 1.3 [place] # (Auto) 0.4 Eos # (Auto) 0.1 Baso # (Auto) 0.0 Abs Immat Gran (auto) 0.03 Absolute Neuts (auto) 6.3 Absolute Nucleated RBC 0.000 Nucleated RBC % (auto) 0.0 Sodium 142 Potassium 4.2 Chloride 107 Carbon Dioxide 27 Anion Gap 12 BUN 23 H Creatinine 1.11 Estim Creat Clear Calc TNP Estimated GFR > 60 Random Glucose 101 Calcium 9.1 Total Bilirubin 0.9 AST 27 ALT 63 H Alkaline Phosphatase 94 Troponin I High Sens 35.2 H Total Protein 6.4 L Albumin 4.1 COVID-19 (LEA) COVID-19 Clin Com 08/03/22 08/03/22 11:39 13:37 WBC RBC Hgb Hct MCV MCH MCHC RDW Plt Count MPV Immature Gran % (Auto) Neut % (Auto) Lymph % (Auto) [place] % (Auto) Eos % (Auto) Baso % (Auto) Lymph # (Auto) [place] # (Auto) Eos # (Auto) Baso # (Auto) Abs Immat Gran (auto) Absolute Neuts (auto) Absolute Nucleated RBC Nucleated RBC % (auto) Sodium Potassium Chloride Carbon Dioxide Anion Gap BUN Creatinine Estim Creat Clear Calc Estimated GFR Random Glucose Calcium Total Bilirubin AST ALT Alkaline Phosphatase Troponin I High Sens 118.3 H* D Total Protein Albumin COVID-19 (LEA) Negative COVID-19 Clin Com See Note ECG Interpretation: EKG shows sinus rhythm at 68/Min; no significant ST-T changes and otherwise unremarkable. Normal MS and corrected QT. Imaging Radiologist's impression: Impressions Chest X-Ray 08/03/22 10:10 IMPRESSION: Clear lungs. Assessment and Plan (1) Hypertensive crisis: Status: Acute (2) Elevated troponin: Status: Acute (3) Major depressive disorder, recurrent severe without psychotic features: Status: Acute Plan Extremely high blood pressure as much as 250/178 mm Hg. Currently, much improved and almost back to baseline. Will need to monitor for the next 24 hours or so to ensure there is no rebound of hypertension. Based on the trend, may need regular meds for this. However, to be determined. With regard to troponins, levels are 35 followed by 118. We will get another level tomorrow morning. We can just give him some aspirin full dose. No need for any heparin drip or anything else at this time. Echocardiogram being performed at this time. Will review once that is completed. Discussed with anesthesiologist who did his case, ER physician, hospitalist. Time Spent With Patient Time: Total time managing care of this patient today 75 minutes. Procedures Date of Service Date of Service: 08/03/22
[2022-08-03] MEDS: Aspirin 81 MG TAB.CHEW 324 MG PO (14:49)
[2022-08-03] MEDS: Nicotine Polacrilex 2 MG GUM 4 MG BUCCAL ×3 (14:50→18:34)
--- NOTE | 2022-08-03 15:48 | PM.EVENT ---
Event Note Date of Service: 08/04/22 Event Note: This patient is seen and examined with APC. Patient admission was called due toacute hypertension, elevated troponin. As per the chart review patient seems like received the glycopyrrolate and recuronium and today patient post anesthesia -develop blood pressure of 250/178: Patient received propofol/labetalol: Subsequently blood pressure improved. In addition to the uncontrolled blood pressure patient was out also found to have elevated troponin, EKG no changes. Patient was seen and examined but patient denies any complaint except headache. No blurry vision or weakness or numbness or any chest pain or shortness of breath. Lab imaging, EKG reviewed. CBC ,BMP seems fine, troponin 35.2-118.3 Chest x-ray seems fine also,ct head-done pending Physical exam: please see h&p . assessment and plan coordinated in APCs note, Agree with the plan in addition: acute htn after anesthesia : received labetalol/propofol -moniter blood pressure/elevated troponins , asymptomatic, no EKG changes- added asa by ed Echo added cardiology followin Time Spent With Patient Time: Total time managing care of this patient today ____ minutes.
[2022-08-03 16:00] VITALS: BP 136/88; PULSE 80; RESP 17; TEMP 36.7; O2SAT 96
[2022-08-03] MEDS: 0.9 % Sodium Chloride Flush 3 ML SYRINGE IVFLUSH ×2 (17:09→20:49)
[2022-08-03 17:16] VITALS: BMI 31.1
[2022-08-03 20:00] VITALS: BP 117/68; PULSE 68; RESP 18; TEMP 36.8; O2SAT 95
[2022-08-03] MEDS: QUEtiapine Fumarate 300 MG TABLET PO (20:48)
[2022-08-03 23:47] VITALS: BP 118/62; PULSE 73; RESP 18; TEMP 37.1; O2SAT 95
[2022-08-04 03:52] VITALS: PULSE 70
[2022-08-04 07:02] LABS: Troponin-I High Sensitivity 32.1 ng/L (<3.5-35.0)
[2022-08-04 08:00] VITALS: BP 139/89; PULSE 105; RESP 16; TEMP 36.7; O2SAT 95
[2022-08-04] MEDS: Nicotine Polacrilex 2 MG GUM 4 MG BUCCAL (08:41)
[2022-08-04] MEDS: 0.9 % Sodium Chloride Flush 3 ML SYRINGE IVFLUSH (08:42)
[2022-08-04] MEDS: QUEtiapine Fumarate 100 MG TABLET PO (08:42)
[2022-08-04] MEDS: Acetaminophen 325 MG TABLET 650 MG PO (08:42)
--- NOTE | 2022-08-04 09:23 | MHC.CM.PN ---
CM met with Patient at bedside and addressed [place] with him (original given to Patient and a copy has been placed on the chart). Patient lives in a house with his Partner/Jimmy and their 4 Children ages 10,12, 14, and 15 years of age. Home/self care is the goal and CM has initiated and will follow for dc planning. Patient explains that he has been on the Psych floor at [facility] within the last 30 days. Patient does not have a PCP . Patient has received Covied vax.
--- NOTE | 2022-08-04 10:10 | P.DS_ITS ---
DS: Providers Provider Date of Service: 08/04/22 Date of admission: 08/03/22 14:30 Date of discharge: 08/04/22 Primary care physician: None Physician Consults: 08/03/22 14:36 Consult to Cardiology Stat Consulting Provider: Ajit Egan Reason for consultation: uptrending troponins, HTN crisis Has provider been notified: Yes 08/04/22 07:47 Consult to Psychiatry Routine Consulting Provider: Psych Covering Reason for consultation: Depression Has provider been notified: No Attending physician on discharge: Sheldon Graham DS: Diagnosis Discharge Diagnosis (1) Hypertensive crisis: Status: Acute (2) Elevated troponin: Status: Acute (3) Overweight: Status: Acute DS: Summary Hospital Course Hospital Course: ?41-year-old male with a PMH significant for?OCD/MDD and alcohol use disorder with last drink over a year ago who presents to the ED after having a hypertensive crisis in the OR when being prepped for ECT.? Anesthesia notes that patient's BP elevated to as high as 250/178. Pt was given 40mg of labetalol and 40mg of propofol which eventually brought his diastolic BP down to 120.? The patient's BP upon presentation to the ED was 160/124.? Of note, the patient was being seen for his 5th ECT procedure since 07/25/2022; he has apparently tole rated the four previous procedures well. Pt notes his BP has been noted to be elevated at the doctor's office, but he is not on any anti-hypertensives or keeping a BP log at home. Pt's father has HTN, but no family history for CAD or adverse reactions to anesthesia.? Patient currently only complains a mild headache, rated 4/10.? Denies chest pain/pressure, palpitations.? No shortness of breath.? Denies fever, chills, nausea, vomiting, abdominal pain.? No blurriness, diplopia, or any other changes in vision. In the ED patient's initial BP was 160/124. Labs were significant for elevated troponin of 35.2 with repeat of 118.3. All other labs unremarkable. CXR was negative for acute findings. CT?of head/brain pending. EKG demonstrated normal sinus rhythm with no evidence of ST elevations or depressions. Pt was treated with aspirin 325mg and acetaminophen for headache. Pt will be admitted to telemetry for observation and further evaluation hypertensive crisis. hospital course:? Patient was admitted for at elevated blood pressure after anaesthesia, also found to have elevated cardiac enzyme for possibly due to that: patient is asymptomatic, blood pressure is mostly fine ( flactauting 120-140 ) ,he is anxious also. Patient of advised for lifestyle modification including weight loss, low-sodium diet, monitor blood pressure out patiently, seen by Cardiology-patient is asymp tomatic, blood pressure fluctuating and patient also anxious, currently no hypertension medication recommended, monitor blood pressure outpatient for few weeks- cardiology may arrange their own appointment for further management. echo seems fine(please see imaging section). Patient was also advised arrange PCP out patiently. Patient was also seen by psych-Patient was also seen by psych-evaluated by psych -plan is ECT outpatient . plan: advised for lifestyle modification including weight loss, low-sodium diet, monitor blood pressure out patientl, cardiology may arrange their own appointment. psych recomended to plan is ECT outpatient . Above management discuss with the patient in detail length she understand and in agreement with the above plan, time spent 50 minute. Time Spent with Patient Time attestation: Total time managing care of this patient today ____ minutes. Discharge coordination time: Greater than 30 minutes Quality: Safe Use of Opioids Does Pt have an Active Cancer Diagnosis on the Problem List?: No Quality: Stroke Does the patient have a stroke diagnosis?: No Physical Exam Vital Signs: Vital Signs: Last Vital Signs Temp 98.1 F 08/04/22 08:00 Pulse 105 H 08/04/22 08:00 Resp 16 08/04/22 08:00 BP 139/89 08/04/22 08:00 Pulse Ox 95 08/04/22 08:00 O2 Del Method 08/04/22 08:00 Oxygen Flow Rate 2 08/03/22 10:20 BMI result Body Mass Index 31.1 Appearance: Alert.? Oriented X3.? not in distress.? Eyes: Pupils equal, round and reactive to light.? Sclera nonicteric.? ENT: Pharynx normal.? Moist mucous membranes. cvs: rrr, [id number] . res: clear to auscultation ,no rhonchii or wheezing abd: no rebound or guarding ,nt, bs present. ext pulses present , no cyanosis . neuro: axo3 , nonfocal. DS: Data Data Completed and Pending Completed studies during hospitalization [Text1]: Procedures Other Electroconvulsive Therapy (07/20/22) Labs on day of discharge: Laboratory Results - last 24 hr 08/03/22 08/03/22 08/03/22 09:51 09:51 11:39 Sodium 142 Potassium 4.2 Chloride 107 Carbon Dioxide 27 Anion Gap 12 BUN 23 H Creatinine 1.11 Estim Creat Clear Calc TNP Estimated GFR > 60 Random Glucose 101 Calcium 9.1 Total Bilirubin 0.9 AST 27 ALT 63 H Alkaline Phosphatase 94 Troponin I High Sens 35.2 H 118.3 H* D Total Protein 6.4 L Albumin 4.1 COVID-19 (LEA) COVID-19 Clin Com 08/03/22 08/04/22 13:37 06:11 Sodium Potassium Chloride Carbon Dioxide Anion Gap BUN Creatinine Estim Creat Clear Calc Estimated GFR Random Glucose Calcium Total Bilirubin AST ALT Alkaline Phosphatase Troponin I High Sens 32.1 D Total Protein Albumin COVID-19 (LEA) Negative COVID-19 Clin Com See Note Imaging Chest x-ray: Radiologist's impression: ITS Impressions Chest X-Ray 08/03/22 10:10 IMPRESSION: Clear lungs. Head CT 08/03/22 15:35 IMPRESSION: No acute intracranial pathology. echo: Conclusions: - The left ventricular systolic function is mildly decreased.? ? The calculated ejection fraction is 51% by biplane method. ? ? ? - No obvious valvular pathology seen on this study.? Findings Procedure Information Contrast agent, definity, is being given per protocol without apparent complications. Left Ventricle Normal left ventricular cavity size.? There is mildly increased left ventricular wall thickness.? The left ventricular systolic function is mildly decreased.? The calculated ejection fraction is 51% by biplane method.? There is no evidence of regional wall motion abnormalities.? Diastolic function is normal for age. Right Ventricle Normal right ventricular cavity size and systolic function. Atria Both atria are normal in size. Aortic Valve There is a normal trileaflet aortic valve.? There is no aortic valve stenosis.? There is no aortic valve regurgitation. Mitral Valve The mitral valve appears normal.? There is no mitral valve regurgitation. There is no mitral valve stenosis. Pulmonic Valve The pulmonic valve is likely normal. Tricuspid Valve Normal tricuspid valve structure.? There is trace tricuspid valve regurgitation.? There is no evidence of pulmonary hypertension. Great Vessels The asc aorta is normal in size. Venous The inferior vena cava was not well visualized.? The inferior vena cava is normal in size. Pericardium/Pleural There is no evidence of pericardial effusion. Prior Study Comparison No prior study available for comparison. Recommendations, Care & Conclusions No obvious valvular pathology seen on this study. Discharge Plan Discharge Patient Disposition: Xfer Psychiatric Hosp Discharge Diagnosis: acute episode of elevated blood pressure ,elevated troponins,overweight, depression Referrals: Physician,None [Primary Care Provider] - 1 Week Discharge Medications: New (DME) blood pressure monitor [Blood Pressure Kit] Kit See Rx Instructions .Route Qty: 1 0RF Rx Instructions: As directed Continued quetiapine 300 mg tablet 1 tab PO BEDTIME lorazepam 0.5 mg tablet 1 tab PO TID PRN (Reason: Anxiety) nicotine (polacrilex) 2 mg Gum 4 mg BUCCAL Q2H quetiapine 100 mg Tablet 100 mg PO DAILY 30 Days Qty: 30 0RF Discharge Orders: Discharge Order (Routine); Ordered 08/04/22 Ordered By: Sheldon Graham Diet: Low salt diet Activity on Discharge: As tolerated Stand Alone Forms: Patient Portal Discharge page Care Plan Goals: Patient was admitted for at elevated blood pressure after anaesthesia, also found to have elevated cardiac enzyme for possibly due to that: patient is asymptomatic, blood pressure is mostly fine ( flactauting 120-140max ) ,he is anxious also. Patient of advised for lifestyle modification including weight loss, low-sodium diet, monitor blood pressure out patiently, seen by Cardiology-patient is asymptomatic, blood pressure fluctuating and patient also anxious, currently no hypertension medication recommended, monitor blood pressure outpatient for few weeks- cardiology may arrange their own appointment for further management. herat ultrasound seems fine. Patient was also seen by psych-evaluated by psych -plan is ECT outpatient . Health Concerns: As above. Plan of Treatment: As above. Patient Instructions: Hypertension (DC), High Troponin Levels (GEN)
--- NOTE | 2022-08-04 10:42 | PM.PNCARD ---
Subjective Subjective Date of Service: 08/04/22 Interval history: Patient states that he feels fine. No new complaints. Review of Systems Review of Systems Yes all other systems are reviewed and are negative Constitutional: Reports as per HPI Eyes: Reports as per HPI Reports as per HPI Cardiovascular: Reports as per HPI, Denies acrocyanosis, Denies cool extremities, Denies chest pain, Denies leg edema, Denies lightheadedness, Denies palpitations and Denies dyspnea Respiratory: Reports as per HPI, Reports no additional respiratory complaints and Denies dyspnea Gastrointestinal: Reports as per HPI and Reports no additional gastrointestinal complaints Genitourinary: Reports no additional male genitourinary complaints and Reports as per HPI Musculoskeletal: Reports no additional musculoskeletal complaints and Reports as per HPI Skin/Breast: Reports system reviewed and no additional complaints, except as docu Reports system reviewed and no additional complaints, except as documented and Reports as per HPI Psychiatric: Reports no additional psychiatric complaints and Reports as per HPI Endocrine: Reports no additional endocrine complaints, Reports as per HPI and Denies palpitations Hematologic/Lymphatic: Reports no additional hematologic/lymphatic complaints and Reports as per HPI Allergic/Immunologic: Reports no additional allergic/immunologic complaints and Reports as per HPI Physical Exam Vital Signs: Last Vital Signs Temp 98.1 F 08/04/22 08:00 Pulse 105 H 08/04/22 08:00 Resp 16 08/04/22 08:00 BP 139/89 08/04/22 08:00 Pulse Ox 95 08/04/22 08:00 O2 Del Method 08/04/22 08:00 Oxygen Flow Rate 2 08/03/22 10:20 BMI result Body Mass Index 31.1 Const General: comfortable and no acute distress Orientation/consciousness: patient oriented x3 HEENT Other: Unremarkable Head: Yes normal to inspection Neck Neck: Yes normal visual inspection Chest Chest palpation & inspection: normal inspection of the chest Resp Auscultation: clear to auscultation bilaterally Cardio Palpation: normal PMI Heart sounds: S1 normal heart sound present, S2 normal heart sound present, no gallops, no murmurs and no rubs GI Palpation (GI): Soft to palpation Back/Spine/Pelvis Other: unremarkable Skin General skin exam: no rashes or lesions noted Neuro General: patient oriented x3 Extrem General: Yes normal to inspection Psych Mental Status: mental status grossly normal Objective Labs and Meds 08/03/22 09:51 08/03/22 09:51 Lab results: Laboratory Results - last 24 hr 08/03/22 08/03/22 08/04/22 11:39 13:37 06:11 Troponin I High Sens 118.3 H* D 32.1 D COVID-19 (LAE) Negative COVID-19 Clin Com See Note Imaging Radiologist's impression: Impressions Head CT 08/03/22 15:35 IMPRESSION: No acute intracranial pathology. Progress Note: A&P Assessment and plan (1) Hypertensive crisis: Status: Acute (2) Elevated troponin: Status: Acute (3) Major depressive disorder, recurrent severe without psychotic features: Status: Acute Plan Extremely high blood pressure as much as 250/178 mm Hg after anesthesia, but currently much improved. Not clear if it is just anesthesia reaction or not. I advised him to monitor his home blood pressures for the next few weeks and then will evaluate them in the office. Troponins are slightly elevated but that could be just from the uncontrolled blood pressure. They seem to have improved significantly. We will follow-up in the office. Can hold off any blood pressure medications at this time. Discussed with Dr. Graham. Time Spent With Patient Time: Total time managing care of this patient today 30 minutes. Progress Note: Quality Stroke Does the patient have a stroke diagnosis?: No Procedures Date of Service Date of Service: 08/04/22
[2022-08-04 11:08] VITALS: BP 140/82; PULSE 112; RESP 16; TEMP 36.8; O2SAT 96
[2022-08-04] MEDS: LORazepam 0.5 MG TABLET PO (12:38)
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
== END 2022-08-04 15:40 ==
LOC: HO.ED 14:07 → HO.EDOVER 14:43 → HO.IMC 15:17
PROVIDERS: Admitting Provider Student in an Organized Health Care Education/Training Program; Emergency Provider Student in an Organized Health Care Education/Training Program; Visit Provider Internal Medicine
DX: I16.9 Hypertensive crisis, unspecified (principal); R77.8 Other specified abnormalities of plasma proteins; F32.A Depression, unspecified; E66.3 Overweight; Z68.31 Body mass index [BMI] 31.0-31.9, adult; Z20.822 Contact with and (suspected) exposure to COVID-19
CPT/HCPCS: 36415; 70450; 71045; 80053; 84484; 85025; 87635; 93005; 93306; 99222; 99285; Q9957

== ENCOUNTER 2022-08-06 10:03 | Emergency (ER) | payer OTHER, SELFPAY ==
--- NOTE | ~2022-08-06 | US_ITS ---
EXAMINATION: US VENOUS WITH DOPPLER UPPER EXTREMITY, BILATERAL CLINICAL INFORMATION: Upper extremity pain and swelling. COMPARISON: None TECHNIQUE: Ultrasound of the upper extremity is performed using compression sonography and color and pulse Doppler flow with assessment of augmentation of flow. There is also imaging and Doppler assessment of the jugular and subclavian veins. Spectral analysis with color-flow imaging is performed. FINDINGS: Respiratory variation, normal compression, and augmented flow are noted throughout the upper extremity including the axillary, brachial, cubital, and radial and ulnar veins. There is normal flow in the internal jugular and subclavian veins. There is a thrombosed superficial vein in the left forearm with no associated vascular flow with Doppler interrogation. No similar abnormality was seen on the right. If the patient's symptoms progress, a followup ultrasound in 5 -7 days might be of value to exclude proximal propagation from a nonvisualized distal arm vein. US/US venous duplex UE BI IMPRESSION: 1. No evidence for deep venous thrombosis in the visualized veins of the bilateral upper extremities. 2. Superficial thrombosed vein in the left forearm possibly representing the distal left cephalic vein.
[2022-08-06 10:06] VITALS: BP 143/98; PULSE 95; RESP 18; TEMP 36.4; O2SAT 96; BMI 31.4
--- NOTE | 2022-08-06 10:17 | ED.GENADULT ---
HPI - General Adult General Chief complaint: General Medical Stated complaint: hands swelling Time Seen by Provider: 08/06/22 10:13 Source: patient Mode of arrival: ambulatory History of Present Illness HPI narrative: 41-year-old male with a past medical history of OCD/MDD, EtOH use disorder, s/p recent discharge from our hospital on 08/04 for hypertensive crisis in the OR when being prepped for ECT, presenting to the ED today complaining of bilateral hand swelling and pain since last night. Denies known injury, trauma, fall, paresthesias, numbness, weakness, fever, SOB/CP. Onset (ago): day(s) Related Data Home Medications Medication Instructions Recorded Confirmed lorazepam 0.5 mg tablet 1 tab PO TID PRN Anxiety 07/20/22 08/03/22 nicotine (polacrilex) 2 mg gum 4 mg buccal Q2H 07/20/22 08/03/22 quetiapine 300 mg tablet 1 tab PO BEDTIME 08/03/22 08/03/22 Previous Rx's Medication Instructions Recorded quetiapine 100 mg tablet 100 mg PO DAILY 30 days #30 tabs 07/27/22 blood pressure monitor (Blood #1 ea 08/04/22 Pressure Kit) naproxen 500 mg tablet 500 mg PO BID PRN pain 10 days #20 08/06/22 tabs Allergies Allergy/AdvReac Type Severity Reaction Status Date / Time Penicillins [PCN] Allergy Rash Verified 07/04/22 11:54 Review of Systems Review of Systems: Constitutional: No Fever, No Chills, No Fatigue, No Malaise ENT/Mouth: No Ear Pain, No Nasal Congestion, No Swallowing Difficulty Eyes: No Eye Pain, No Swelling, No Redness, No Vision Changes Cardiovascular: No Chest Pain, No SOB, No Edema, No Palpitations Respiratory: No Cough, No Sputum, No Dyspnea Gastrointestinal: No Nausea, No Vomiting, No Diarrhea, No Constipation, No Abdominal pain Genitourinary: No Dysuria, No Hematuria, No Flank Pain Musculoskeletal: + joint pain, No Myalgias, + Joint Swelling Skin: No Skin Lesions, No rash Neuro: No Weakness, No Dizziness, No Headache Yes all other systems are reviewed and are negative Constitutional: Constitutional: Reports as per [facility] Past Medical History Attestation statement: The following information was validated with the patient. Medical History Abdominal hernia Alcohol use disorder, severe, in sustained remission Major depressive disorder, recurrent severe without psychotic features No known health problems OCD (obsessive compulsive disorder) Routine medical exam Family History Family History Maternal Grandfather Myocardial infarction Social History Social History Household Members: Spouse and Children Housing: House Do you presently have visiting nurse or other home services: No Alcohol intake: never Patient Tobacco Use Status: Former Tobacco user Tobacco use type: Smokeless Tobacco e-Cigarette/Vaping Use: Never Used Second Hand Smoke Exposure: No Use of substances other than those prescribed or required for medical reasons: No Advance Directives: No Advance Directives Information Provided: No service: No Current occupational status: other Sexual orientation: Straight/Heterosexual Physical Exam ED Vital Signs: Vital Signs - 24 hr 08/06/22 10:06 08/06/22 13:19 Temperature 97.6 F 97.6 F Pulse Rate 95 77 Respiratory Rate 18 15 Blood Pressure 143/98 H 144/90 H Pulse Oximetry 96 100 Oxygen Delivery Method Room Air Room Air BMI result Body Mass Index 31.4 Const General: cooperative, healthy appearing and no acute distress Orientation/consciousness: patient oriented x3 Limitations: no limitations HENMT Head: Yes normal to inspection and Yes atraumatic Ears: hearing grossly normal bilaterally General nose exam: Normal external nose present Face and sinus: Yes normal facial exam Eyes General: appearance normal, both eyes and all related structures EOM: EOMs intact bilaterally Neck Neck: Yes normal visual inspection and Yes no meningeal signs Resp Effort & Inspection: normal respiratory effort and no respiratory distress Auscultation: clear to auscultation bilaterally Cardio Rate: regular rate Heart sounds: S1 normal heart sound present and S2 normal heart sound present Peripheral pulses: radial pulses present and ulnar radial pulses present Skin Rashes: no rashes Neuro General: patient oriented x3, tone normal and no meningeal signs Gait exam (Neuro): Normal gait present Extrem Other: + bilateral hands with mild swelling, left greater than right. Volar aspect of left hand with a few previous venipuncture sites with surrounding healing ecchymosis extending to wrist. No lymphangitis. Mildly tender to palpation. Right hand minimally swollen, prior venipuncture site to right AC No JVD. FROM and NV intact to b/l UE Course Course Course Narrative: US venous duplex UE BI IMPRESSION: 1.? No evidence for deep venous thrombosis in the visualized veins of the bilateral upper extremities. 2. Superficial thrombosed vein in the left forearm possibly representing the distal left cephalic vein. > Mauri wrap applied Results discussed with patient including worrisome signs and symptoms and strict return precautions, and when to return to the emergency department. They verbalized understanding and feel safe for discharge at this time. Medical Decision Making Medical Decision Making MDM Narrative: 41-year-old male with a past medical history of OCD/MDD, EtOH use disorder, s/p recent discharge from our hospital on 08/04 for hypertensive crisis in the OR when being prepped for ECT, presenting to the ED today complaining of bilateral hand swelling and pain since last night. On exam vital signs stable, NAD, nontoxic appearing, physical exam as noted above. Concern for superficial thrombophlebitis vs DVT. Low suspicion for PE, no evidence of cellulitis/ infection or septic joint/arthritis. Low suspicion for hypertensive crisis/urgency plan: Bilateral upper extremity duplex ultrasound Differential Diagnosis Differential Diagnoses: The differential diagnosis associated with the presentation includes as above Radiology Impression Discussion of test interpretation with radiology: I have reviewed the radiologist's reading. Discharge Plan Discharge Clinical Impression: Superficial venous thrombosis of left arm Patient Disposition: Home, Self-Care Instructions: Superficial Thrombophlebitis (ED) Additional Instructions: your ultrasound shows a superficial thrombosed vein in her left forearm wear Mauri wrap for comfort and compression naproxen is an anti-inflammatory/pain medication, take with food. If symptoms persist or worsen we recommend follow-up ultrasound in 5-7 days Prescriptions: New naproxen 500 mg tablet 500 mg PO BID PRN (Reason: pain) 10 Days Qty: 20 0RF No Action quetiapine 300 mg tablet 1 tab PO BEDTIME (DME) blood pressure monitor [Blood Pressure Kit] Kit See Rx Instructions .Route Qty: 1 0RF Rx Instructions: As directed lorazepam 0.5 mg tablet 1 tab PO TID PRN (Reason: Anxiety) nicotine (polacrilex) 2 mg Gum 4 mg BUCCAL Q2H quetiapine 100 mg Tablet 100 mg PO DAILY 30 Days Qty: 30 0RF Referrals: Physician,None [Primary Care Provider] - Interventions: ED Discharge Assessment Last Done: 08/06/22 14:48 Discharge Date/Time: 08/06/22 14:48
[2022-08-06 13:19] VITALS: BP 144/90; PULSE 77; RESP 15; TEMP 36.4; O2SAT 100
== END 2022-08-06 14:48 | disposition home or self-care (01) ==
PROVIDERS: Emergency Provider Student in an Organized Health Care Education/Training Program
DX: I82.612 Acute embolism and thrombosis of superficial veins of left upper extremity (principal); R60.0 Localized edema; Z79.899 Other long term (current) drug therapy
CPT/HCPCS: 93970; 99284

== ENCOUNTER → 2022-09-05 10:08 | Outpatient (BNVA) | payer OTHER, SELFPAY | PROVIDERS: Visit Provider Internal Medicine | DX: Z13.89 Encounter for screening for other disorder (principal) ==

== ENCOUNTER 2023-06-10 18:59 | Inpatient (IN) | payer OTHER, SELFPAY ==
[2023-06-10 19:16] VITALS: BP 159/104; PULSE 73; RESP 16; TEMP 37.1; O2SAT 98; BMI 29.7
--- NOTE | 2023-06-10 19:16 | ED.GENADULT ---
HPI - General Adult General Chief complaint: Psychiatric Symptoms Stated complaint: crisis eval Time Seen by Provider: 06/10/23 20:29 Source: patient Mode of arrival: ambulatory Limitations: no limitations History of Present Illness HPI narrative: Patient is a 42 year old assigned male at with a history of depression presenting to the emergency department today with worsening depression and suicidal ideation. Patient states that he has a significant history of depression, including getting ECT, and he is having a worsening flare with suicidal ideation. Patient denies any dizziness, lightheadedness, abdominal pain, nausea, vomiting, fever, chills, blurry vision, double vision, loss of vision, chest pain, difficulty breathing, shortness of breath, back pain, night sweats, pain with urination, increased urinary frequency, increased urinary urgency, blood in his urine or stool, syncope or a near syncopal episode, recent trauma or falls, bowel incontinence, bladder incontinence, bowel retention, bladder retention, or any other complaints at this time. Onset (ago): year(s) Relieving factors: none Exacerbating factors: none Associated symptoms: denies other symptoms Treatments prior to arrival: none Related Data Home Medications Medication Instructions Recorded Confirmed lithium carbonate 450 mg 900 mg PO BEDTIME 09/05/22 06/10/23 tablet,extended release lorazepam 2 mg tablet 2 mg PO BID 06/10/23 06/10/23 quetiapine 100 mg tablet 50 mg PO DAILY 06/10/23 06/10/23 quetiapine 300 mg tablet,extended 300 mg PO BEDTIME 06/10/23 06/10/23 release 24 hr Previous Rx's Medication Instructions Recorded blood pressure monitor (Blood #1 ea 08/04/22 Pressure Kit) Allergies Allergy/AdvReac Type Severity Reaction Status Date / Time Penicillins [PCN] Allergy Rash Verified 09/05/22 10:19 Review of Systems Constitutional: Constitutional: Reports no additional constitutional complaints, Denies chills, Denies fever(s) and Denies night sweats Eyes: Eyes: Reports no additional eye complaints, Denies blurry vision, Denies change in vision, Denies diplopia, Denies eye discharge, Denies loss of vision and Denies eye pain ENT: Denies dizziness Cardiovascular: Cardiovascular: Reports no additional cardiovascular complaints, Denies chest pain, Denies lightheadedness, Denies Loss of Consciousness and Denies dyspnea Respiratory: Respiratory: Reports no additional respiratory complaints and Denies dyspnea Gastrointestinal: Gastrointestinal: Reports no additional gastrointestinal complaints, Denies abdominal pain, Denies melena, Denies hematochezia, Denies change in bowel habits and Denies change in stool character Genitourinary: Genitourinary: Reports no additional male genitourinary complaints, Denies hematuria, Denies oliguria, Denies difficulty urinating, Denies dysuria, Denies urinary frequency, Denies urinary hesitancy, Denies urinary incontinence and Denies urinary urgency Musculoskeletal: Musculoskeletal: Reports no additional musculoskeletal complaints, Denies numbness and Denies tingling Neurologic: Denies dizziness, Denies loss of vision, Denies numbness and Denies tingling Psychiatric: Psychiatric: Reports depression, Denies homicidal ideation and Reports suicidal ideation Endocrine: Endocrine: Reports no additional endocrine complaints Hematologic/Lymphatic: Hematologic/Lymphatic: Reports no additional hematologic/lymphatic complaints Allergic/Immunologic: Allergic/Immunologic: Reports no additional allergic/immunologic complaints PMFSH Past Medical History Attestation statement: The following information was validated with the patient. Source: old records reviewed and nursing notes reviewed Medical History Routine medical exam OCD (obsessive compulsive disorder) Alcohol use disorder, severe, in sustained remission Major depressive disorder, recurrent severe without psychotic features Abdominal hernia No known health problems Family History Family History Maternal Grandfather Myocardial infarction Social History Social History Household Members: Spouse and Children Housing: House Do you presently have visiting nurse or other home services: No Alcohol intake: never Patient Tobacco Use Status: Former Tobacco user Tobacco use type: Smokeless Tobacco e-Cigarette/Vaping Use: Never Used Second Hand Smoke Exposure: No Advance Directives: No Advance Directives Information Provided: No service: No Current occupational status: other Sexual orientation: Straight/Heterosexual Physical Exam ED Vital Signs: Vital Signs - 24 hr 06/10/23 19:16 Temperature 98.7 F Pulse Rate 73 Respiratory Rate 16 Blood Pressure 159/104 H Pulse Oximetry 98 Oxygen Delivery Method Room Air BMI result Body Mass Index 29.7 Const General: cooperative, no acute distress, alert and awake Nutritional Appearance: well nourished Orientation/consciousness: patient oriented x3 Limitations: no limitations HENMT Head: Yes normal to inspection and Yes atraumatic Ears: hearing grossly normal bilaterally and external ears normal General nose exam: Normal external nose present, no nasal discharge noted and no epistaxis Face and sinus: Yes normal facial exam, No abrasion and No laceration Mouth: Normal oral and palatal mucosa present, no drooling and no muffled voice Eyes General: appearance normal, both eyes and all related structures Periorbital: periorbital findings normal Eyelids: Yes eyelids normal Conjunctivae: conjunctivae normal Pupils: Equal, round and reactive pupils present EOM: EOMs intact bilaterally Neck Neck: Yes normal visual inspection, Yes full ROM and Yes no lymphadenopathy Chest Chest palpation & inspection: normal inspection of the chest Resp Effort & Inspection: normal respiratory effort and able to speak in complete sentences GI Inspection: Yes normal to inspection Neuro General: patient oriented x3 and moves all extremities Cranial nerves: Yes Equal, round and reactive pupils present Cognition (Neuro): normal cognition Motor exam (neuro): 5/5 motor strength present throughout Sensory Exam: Normal double simultaneous stimulation for sensation Coordination: [id number] test normal Extrem General: Yes normal to inspection, Yes full ROM and Yes capillary refill normal Psych Appearance: grossly normal Mental Status: mental status grossly normal Affect: Sad affect present Attitude: cooperative Thought process: Normal thought process present Thought content: Suicidality present Course Course Course Narrative: RME performed by Jacquelyn Hurt PA-C. Patient is a 42 year old assigned male at presenting to the emergency department with worsening depression and suicidal ideation. Labs and swabs ordered. Patient to be taken to behavioral pod. Medications Administered Generic Name Dose Route Start Last Admin Trade Name Linus PRN Reason Stop Dose Admin [place] Carbonate 900 mg 06/10/23 22:00 12 22:56 [place] Carbonate Er 450 Mg Tablet.Er PO 900 mg BEDTIME YOLIS Administration Lorazepam 2 mg 06/10/23 22:00 06/10/23 22:56 Lorazepam 1 Mg Tablet PO 2 mg BID YOLIS Administration Quetiapine Fumarate 150 mg 06/11/23 22:45 06/10/23 22:57 Quetiapine Fumarate 100 Mg Tablet PO 150 mg BID YOLIS Administration Medical Decision Making Medical Decision Making MDM Narrative: Patient is a 42 year old assigned male at with a history of depression presenting to the emergency department today with worsening depression and suicidal ideation. Patient's physical exam was unremarkable. Patient's blood work was unremarkable. Patient's urine showed no acute process. I explained my physical exam findings as well as all test results to the patient. I answered all questions asked by the patient. Patient is currently awaiting CARE team evaluation. Differential Diagnosis Differential Diagnoses: The differential diagnosis associated with the presentation includes Suicidal ideation Depression Admission/Observation Consideration of admission/observation: Escalation of care including admission/observation considered Admission will be determined after CARE team evaluation. Lab Data MDM Lab Attestation statement: I reviewed the patient's lab results. My interpretation of these studies and their corresponding values is that they are grossly normal. 06/10/23 20:11 06/10/23 20:11 Labs: Lab Results 06/10/23 06/10/23 Range/Units 20:11 20:12 WBC 9.5 (4.8-10.8) X10*3/uL RBC 5.46 (4.60-5.80) X10*6/uL Hgb 17.1 (14.0-18.0) g/dl Hct 48.1 (42.0-52.0) % MCV 88.1 (80.0-98.0) fL MCH 31.3 (27.0-33.0) pg MCHC 35.6 (31.0-36.0) g/dl RDW 11.5 (11.0-16.0) % Plt Count 224 D (160-400) X10*3/uL MPV 9.7 (9.4-12.4) fL Immature Gran % (Auto) 0.4 (0.0-0.4) % Neut % (Auto) 65.3 (45-73) % Lymph % (Auto) 26.1 (20-40) % [place] % (Auto) 5.9 (2-11) % Eos % (Auto) 1.8 (0-4) % Baso % (Auto) 0.5 (0-2) % Lymph # (Auto) 2.5 (1.2-4.9) X10*3/uL [place] # (Auto) 0.6 (0.1-1.2) X10*3/uL Eos # (Auto) 0.2 (0.0-0.4) X10*3/uL Baso # (Auto) 0.1 (0.0-0.2) X10*3/uL Abs Immat Gran (auto) 0.04 H (0.00-0.03) X10*3/uL Absolute Neuts (auto) 6.2 (2.0-8.3) x10*3/uL Absolute Nucleated RBC 0.000 (0.0-0.012) X10*3/uL Nucleated RBC % (auto) 0.0 (0.0-0.2) /100WBC Sodium 140 (135-145) mmol/L Potassium 3.8 (3.3-5.1) mmol/L Chloride 107 (96-108) mmol/L Carbon Dioxide 25 (22-29) mmol/L Anion Gap 12 (12-20) BUN 13 (9-16) mg/dL Creatinine 0.86 (0.5-1.4) mg/dL Estim Creat Clear Calc 134.0 Estimated GFR > 60 Random Glucose 94 (60-115) mg/dL Calcium 9.6 (8.4-10.2) mg/dL Total Bilirubin 0.4 (0.0-1.0) mg/dL AST 26 (5-37) U/L ALT 45 H (0-40) U/L Alkaline Phosphatase 90 (39-117) U/L Total Protein 7.7 (6.5-8.0) g/dL Albumin 4.7 (3.5-5.0) g/dL Urine Color Yellow Urine Appearance Clear Urine pH 6.0 (5.0-9.0) Ur Specific [place] 1.020 (1.005-1.025) Urine Protein Negative (Neg-Trace) mg/dL Urine Glucose (UA) Negative (Negative) mg/dL Urine Ketones Negative (Negative) mg/dL Urine Blood Trace (Negative) Urine Nitrite Negative (Negative) Ur Leukocyte Esterase Negative (Negative) Urine RBC 0-2 (0-2) /HPF Urine WBC 0-5 (0-5) /HPF Ur Squamous Epith Cells 0-2 (0-2) /HPF Urine Bacteria None Seen (None Seen) Hyaline Casts 0-2 (0-2) /LPF Salicylates < 5.0 L (15-30) mg/dL Urine Opiates Screen Not Detected (Not Detect) Urine Fentanyl Screen Not Detected (Not Detect) Acetaminophen < 3 (<30) mcg/mL Ur Barbiturates Screen Not Detected (Not Detect) Ur Phencyclidine Scrn Not Detected (Not Detect) Ur Amphetamines Screen Not Detected (Not Detect) U Benzodiazepines Scrn Not Detected (Not Detect) [place] 0.34 L (0.60-1.20) mmol/L Urine Cocaine Screen Not Detected (Not Detect) U Marijuana (THC) Screen Not Detected (Not Detect) Ethyl Alcohol < 10 mg/dL COVID-19 (LEA) Negative (Negative) COVID-19 Clin Com See Note Discharge Plan Discharge Clinical Impression: Depression, Suicidal ideation Patient Disposition: Still a Patient Prescriptions: No Action (DME) blood pressure monitor [Blood Pressure Kit] Kit See Rx Instructions .Route Qty: 1 0RF Rx Instructions: As directed quetiapine 100 mg tablet 50 mg PO DAILY lorazepam 2 mg tablet 2 mg PO BID quetiapine 300 mg tablet extended release 24 hr 300 mg PO BEDTIME lithium carbonate 450 mg tablet extended release 900 mg PO BEDTIME Interventions: [place]-Suicide Risk Severity Scale Last Done: 06/10/23 20:11
--- NOTE | 2023-06-10 19:17 | ECG_ITS ---
Test Reason : ACESS QT INTERVAL Blood Pressure : / mmHG Vent. Rate : 082 BPM Atrial Rate : 082 BPM P-R Int : 166 ms QRS Dur : 084 ms QT Int : 376 ms P-R-T Axes : 033 016 031 degrees QTc Int : 439 ms Normal sinus rhythm Nonspecific T wave abnormality Abnormal ECG When compared with ECG of 03-AUG-2022 09:56, Nonspecific T wave abnormality now evident in Anterior leads Referred By: Jacquelyn Hurt Electronically Signed By:KELIN KHAN
[2023-06-10 20:18] LABS: MANUAL DIFF FLAG NO
[2023-06-10 20:19] LABS: Basophils Absolute Auto 0.1 X10*3/uL (0.0-0.2); Basophils Percent Auto 0.5 % (0-2); Eosinophils Absolute Auto 0.2 X10*3/uL (0.0-0.4); Eosinophils Percent Auto 1.8 % (0-4); Hematocrit 48.1 % (42.0-52.0); Hemoglobin 17.1 g/dl (14.0-18.0); Imm Gran Abs Auto 0.04 X10*3/uL (0.00-0.03); Imm Gran Pct Auto 0.4 % (0.0-0.4); Lymphocytes Absolute Auto 2.5 X10*3/uL (1.2-4.9); Lymphocytes Percent Auto 26.1 % (20-40); Mean Corpuscular HGB Conc 35.6 g/dl (31.0-36.0); Mean Corpuscular Hemoglobin 31.3 pg (27.0-33.0); Mean Corpuscular Volume 88.1 fL (80.0-98.0); Mean Platelet Volume 9.7 fL (9.4-12.4); Monocytes Absolute Auto 0.6 X10*3/uL (0.1-1.2); Monocytes Percent Auto 5.9 % (2-11); Neutrophils Absolute Auto 6.2 x10*3/uL (2.0-8.3); Neutrophils Percent Auto 65.3 % (45-73); Platelet Count 224 X10*3/uL (160-400); Red Blood Count 5.46 X10*6/uL (4.60-5.80); Red Cell Distribution Width 11.5 % (11.0-16.0); White Blood Count 9.5 X10*3/uL (4.8-10.8)
[2023-06-10 20:22] LABS: Appearance Urine Clear; Color Urine Yellow; Glucose Urine UA Negative (Negative); Leukocyte Esterase Urine Negative (Negative); Nitrite Urine Negative (Negative); UMIC TRIGGER UA YES; Urine Blood Trace (Negative); Urine Ketones Negative (Negative); Urine Protein Negative (Neg-Trace)
[2023-06-10 20:26] LABS: Bacteria Urine None Seen (None Seen); Hyaline Casts Urine 0-2 /LPF (0-2); RBC Urine 0-2 /HPF (0-2); Squamous Epithelial Cell Urine 0-2 /HPF (0-2); WBC Urine 0-5 /HPF (0-5)
[2023-06-10 20:27] LABS: Lithium 0.34 mmol/L (0.60-1.20)
[2023-06-10 20:30] LABS: Amphetamine Screen Urine Not Detected (Not Detect); Barbiturates, Urine Not Detected (Not Detect); Benzodiazepines Screen Urine Not Detected (Not Detect); Cannabinoid Screen Urine Not Detected (Not Detect); Cocaine Screen Urine Not Detected (Not Detect); Fentanyl, urine Not Detected (Not Detect); Opiate Screen Urine Not Detected (Not Detect); Phencyclidine Screen Urine Not Detected (Not Detect)
[2023-06-10 20:33] LABS: COVID-19 Test Negative (Negative); IDNOW Serial# BCCEAD1C
[2023-06-10 20:36] LABS: Alanine Aminotransferase 45 U/L (0-40); Albumin Level 4.7 g/dL (3.5-5.0); Alkaline Phosphatase 90 U/L (39-117); Anion Gap 12 (12-20); Aspartate Amino Transferase 26 U/L (5-37); Bilirubin Total 0.4 mg/dL (0.0-1.0); Blood Urea Nitrogen 13 mg/dL (9-16); Calcium 9.6 mg/dL (8.4-10.2); Carbon Dioxide 25 mmol/L (22-29); Chloride 107 mmol/L (96-108); Estimated Glomerular Filt Rate > 60; Ethanol < 10 mg/dL; Glucose Random 94 mg/dL (60-115); Potassium 3.8 mmol/L (3.3-5.1); Sodium 140 mmol/L (135-145); Total Protein 7.7 g/dL (6.5-8.0)
[2023-06-10 20:39] LABS: Acetaminophen LAB < 3 mcg/mL (<30); Salicylate < 5.0 mg/dL (15-30)
[2023-06-10] MEDS: Lithium Carbonate ER 450 MG TABLET.ER 900 MG PO (22:56)
[2023-06-10] MEDS: LORazepam 1 MG TABLET 2 MG PO (22:56)
[2023-06-10] MEDS: QUEtiapine Fumarate 100 MG TABLET 150 MG PO (22:57)
[2023-06-11 01:40] VITALS: BP 163/104; PULSE 110; RESP 18; TEMP 38.3; O2SAT 98
[2023-06-11 07:23] VITALS: BP 141/85; PULSE 85; RESP 16; TEMP 36.6; O2SAT 96
--- NOTE | 2023-06-11 08:19 | PC.NURSE ---
REPORT RECEIVED FROM TAWNYA FONG. PT IS SLEEPING RESP EVEN AND UNLABORED.
[2023-06-11] MEDS: LORazepam 1 MG TABLET 2 MG PO ×2 (09:58→20:55)
--- NOTE | 2023-06-11 09:58 | PC.NURSE ---
PT IS BEING SEEN BY CARE TEAM AT THIS TIME. PT AWARE OF PLAN OF CARE.
--- NOTE | 2023-06-11 12:35 | MHC.CARE ---
Pt seen by CARE team and meets inpatient level of care, bed search in process.
[2023-06-11] MEDS: QUEtiapine Fumarate 100 MG TABLET 150 MG PO (13:04)
[2023-06-11] MEDS: Nicotine Polacrilex Lozenge 2 MG LOZENGE BUCCAL (13:59)
[2023-06-11 15:47] VITALS: RESP 16
--- NOTE | 2023-06-11 15:51 | PC.NURSE ---
Bashir has spent most of the shift resting in bed. Up for meals and compliant with medications. Denies HI/AVH but does endorse depression and SI. No behavioral concerns. No c/o pain or discomfort.
[2023-06-11 17:25] VITALS: BP 126/84; PULSE 82; RESP 16; TEMP 37; O2SAT 98
[2023-06-11] MEDS: Nicotine Polacrilex 2 MG GUM 4 MG BUCCAL (18:41)
--- NOTE | 2023-06-11 19:05 | PC.NURSE ---
Upon arriving to unit pt denied that he signed the CV that was in his chart. (care team and notified) Legals explained, pt agreed to sign in as a CV with this ticket writer as a witness. PT then requested to sign a 3 day notice with this ticket writer. Both signed and in chart.
--- NOTE | 2023-06-11 19:13 | PC.ADMIT ---
PT is a 43 year old Greek speaking male that arrived on this unit at 17:25 from the [facility] via wheelchair and was placed on 15 minute safty checks. Legal status: CV. PT has a hx of a multitude of psych admissions related to ongoing depression. PT reports he is currently under the care of Dr. Skaggs and has been receiving TMS therapy and he has not found this to be helpful and has not noticed a change in his depression. PT reports he tried ECT while here in July and had adverse reaction to something and his blood pressure was elevated in to the 200's. PT reports home life as chaotic and alludes to financial difficulty. PT reports stable housing and employment. COVID neg, tox screen neg. Denies any substance use but does report a hx of ETOH use and has occasionally fell of the wagon but it's been a long time . PT reports one suicide attempt where he jumped off of building at [facility] during college. PT is a current everyday smokeless tobacco and NRT has been ordered. PT Refuses the flu shot. Denies current SI/HI AH/VH. VS stable. Legals signed and safety tool completed. TX plan to be done. PT currently resting in his room, resp even and unlabored and in no apparent distress.
[2023-06-11] MEDS: QUEtiapine Fumarate 300 MG TABLET PO (20:56)
[2023-06-11] MEDS: Lithium Carbonate ER 450 MG TABLET.ER 900 MG PO (20:56)
[2023-06-12] MEDS: LORazepam 1 MG TABLET 2 MG PO ×2 (07:58→19:56)
[2023-06-12 07:59] VITALS: BP 102/58; PULSE 64; RESP 16; TEMP 36.3; O2SAT 95
--- NOTE | 2023-06-12 09:41 | HO.PSYADMNOT ---
HPI Date of Service: 06/12/23 Chief Complaint: crisis eval Sources of Information: patient interviewed, chart reviewed and crisis/core team assessment reviewed HPI Subjective Notes: Kumar Warning and Conditional Voluntary Narrative: Patient is a 42 year old male with hx of MDD and multiple inpatient psychiatric hospitalizations who self presented to [facility] d/t suicidal ideation with no plan, secondary to increased depression. Per crisis report, pt reports ECT during his admission to in July 2022. He reports anhedonia and difficulty getting out of bed in the morning. Pt reports since his last inpatient hospitalizations in July 2022, his symptoms have persisted but increased over the past month. Patient reports suicidal ideation to hook a hose to his car exhaust or jump off a high rise at his job. Started TMS in May 2023, has completed 27 weeks of treatment without improvement in his mood. During admission assessment, pt presents calm, cooperative and pleasant. Patient reports continued depressive symptoms; pt stated, this started a year ago, I went inpatient at [facility], did PHP which didn't help then came inpatient and did ECT but only did 2 treatments because my blood pressure was too high. 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 It triggered something going into the custodial. I also had taken a side job which a leak occurred in the basement. Now I'm worried about making a mistake. I'm having financial stress . Denies any substance use. Patient sober from ETOH for the past 4-5 years. Lives with his partner and their 4 children (Ages: 11,13,15,16). Past Psychiatric History: Med trials: [place], Viibryd, Zoloft, BuSpar, Wellbutrin, Cymbalta multiple other meds, cannot recall names. IP: multiple. PHP: through [facility] Outpt: Therapist: Has tried 27 weeks of TMS without result. HX of 2 rounds of ECT, pt reports they did not continue with more d/t hypertension. Medical Evaluation Reviewed: Yes [facility] Medical History Routine medical exam OCD (obsessive compulsive disorder) Alcohol use disorder, severe, in sustained remission Major depressive disorder, recurrent severe without psychotic features Abdominal hernia No known health problems Family History: Father: alcohol use disorder, in recovery. Mother: Depression, ocular melanoma. Mother had ECT, TMS, Ketamine in the past. Mother in November 2022 from long wills with cancer. Social History: Raised in [place] by both parents. Mother a teacher, father a administrator social welfare. Has a younger brother. Graduated high school, some college. 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 Employed full-time, currently on FMLA leave. Lives with long-term partner and their 4 children. Substance History: denies drug use. Sober from ETOH for the past 4-5 years. Trauma History: Victim, emotional Diagnostics Vital Signs (24Hr): Vital Signs - 24 hr 06/11/23 15:47 06/11/23 17:25 06/12/23 07:59 Temperature 98.6 F 97.4 F Pulse Rate 82 64 Respiratory Rate 16 16 16 Blood Pressure 126/84 102/58 L Pulse Oximetry 98 95 Oxygen Delivery Method Room Air Room Air BMI result Body Mass Index 29.7 Labs 06/10/23 20:11 06/10/23 20:11 Labs: Laboratory Results - last 48 hr 06/10/23 06/10/23 20:11 20:12 WBC 9.5 RBC 5.46 Hgb 17.1 Hct 48.1 MCV 88.1 MCH 31.3 MCHC 35.6 RDW 11.5 Plt Count 224 D MPV 9.7 Immature Gran % (Auto) 0.4 Neut % (Auto) 65.3 Lymph % (Auto) 26.1 [place] % (Auto) 5.9 Eos % (Auto) 1.8 Baso % (Auto) 0.5 Lymph # (Auto) 2.5 [place] # (Auto) 0.6 Eos # (Auto) 0.2 Baso # (Auto) 0.1 Abs Immat Gran (auto) 0.04 H Absolute Neuts (auto) 6.2 Absolute Nucleated RBC 0.000 Nucleated RBC % (auto) 0.0 Sodium 140 Potassium 3.8 Chloride 107 Carbon Dioxide 25 Anion Gap 12 BUN 13 Creatinine 0.86 Estim Creat Clear Calc 134.0 Estimated GFR > 60 Random Glucose 94 Calcium 9.6 Total Bilirubin 0.4 AST 26 ALT 45 H Alkaline Phosphatase 90 Total Protein 7.7 Albumin 4.7 Urine Color Yellow Urine Appearance Clear Urine pH 6.0 Ur Specific [place] 1.020 Urine Protein Negative Urine Glucose (UA) Negative Urine Ketones Negative Urine Blood Trace Urine Nitrite Negative Ur Leukocyte Esterase Negative Urine RBC 0-2 Urine WBC 0-5 Ur Squamous Epith Cells 0-2 Urine Bacteria None Seen Hyaline Casts 0-2 Salicylates < 5.0 L Urine Opiates Screen Not Detected Urine Fentanyl Screen Not Detected Acetaminophen < 3 Ur Barbiturates Screen Not Detected Ur Phencyclidine Scrn Not Detected Ur Amphetamines Screen Not Detected U Benzodiazepines Scrn Not Detected [place] 0.34 L Urine Cocaine Screen Not Detected U Marijuana (THC) Screen Not Detected Ethyl Alcohol < 10 COVID-19 (LEA) Negative COVID-19 Clin Com See Note Meds/Allergies Meds Home Medications Medication Instructions Recorded Confirmed Type lithium carbonate 450 mg 900 mg PO BEDTIME 09/05/22 06/10/23 History tablet,extended release lorazepam 2 mg tablet 2 mg PO BID 06/10/23 06/10/23 History quetiapine 100 mg tablet 50 mg PO DAILY 06/10/23 06/10/23 History quetiapine 300 mg tablet,extended 300 mg PO BEDTIME 06/10/23 06/10/23 History release 24 hr Allergies Allergies Allergy/AdvReac Type Severity Reaction Status Date / Time Penicillins [PCN] Allergy Rash Verified 09/05/22 10:19 Assessment & Plan Assessment & Plan (1) Major depressive disorder, recurrent severe without psychotic features: Status: Acute Code(s): F33.2 - Major depressive disorder, recurrent severe without psychotic features (2) OCD (obsessive compulsive disorder): Status: Acute Code(s): F42.9 - Obsessive-compulsive disorder, unspecified (3) Alcohol use disorder, severe, in sustained remission: Status: Acute Code(s): F10.21 - Alcohol dependence, in remission Plan Patient is a 42 year old male with hx of MDD and multiple inpatient psychiatric hospitalizations who self presented to [facility] d/t suicidal ideation with no plan, secondary to increased depression. Plan: CV 15 minute safety checks Continue home medications Obtain collateral from outpatient providers Patient educated on: diagnosis, medication risk/benefits and therapeutic strategies Informed Consent: understands Reason for continued inpatient stay Substantial Risk for: harm to self and med/psych decompensation Statement Statement: I have reviewed the history and physical and performed a pertinent examination on my patient. No changes have occurred unless specified. If the History and Physical was not performed prior to admission, the Hospitalist's service will be consulted for completing the admission physical. Time Spent With Patient Time: Total time managing care of this patient today _60___ minutes.
[2023-06-12] MEDS: Nicotine Polacrilex 2 MG GUM 4 MG BUCCAL ×3 (09:47→18:15)
[2023-06-12] MEDS: Acetaminophen 325 MG TABLET 650 MG PO (14:22)
[2023-06-12 16:17] VITALS: BP 147/86; PULSE 90; TEMP 36.6; O2SAT 97
[2023-06-12] MEDS: Lithium Carbonate ER 450 MG TABLET.ER 900 MG PO (19:55)
[2023-06-12] MEDS: traZODone HCL 50 MG TABLET PO (19:56)
[2023-06-12] MEDS: QUEtiapine Fumarate 300 MG TABLET PO (19:57)
[2023-06-13 07:00] VITALS: BMI 29.5
[2023-06-13 08:38] VITALS: BP 127/73; PULSE 63; RESP 16; TEMP 36.6; O2SAT 97
[2023-06-13] MEDS: LORazepam 1 MG TABLET 2 MG PO ×2 (08:56→20:33)
[2023-06-13] MEDS: Nicotine Polacrilex 2 MG GUM 4 MG BUCCAL ×5 (09:32→20:51)
--- NOTE | 2023-06-13 09:52 | HO.PSYCHPN ---
Subjective Subjective Date of Service: 06/13/23 Reason For Visit: crisis eval Interim History: met with patient; discussed with team Pt shared about recent hx leading up to admission; his intrusive thoughts were worse last week, with thought that he did not love his kids; he had thoughts about ending his life and drove by a park where he's imagined he would attempt, but he reports there was no intent or increase in frequency of his chronic SI thoughts that occur about 2x per. Pt came to ED but did not really think he needed inpt admission since has outpt provider and has plans to try Prozac and perhaps Esketamine. He wanted to discuss whether ECt remains an option. Building Custodian reviewed chart and pt had 4 trials, but 5th was cancelled due to hypertension. Not sure at this time if re-trial is option. just concluded TMS with little benefit Pt has 3 day notice in due tomorrow. He is asking for discharge, wanting to go to his daughters [place] and feeling he is well taken care of by outpt psychiatrist. agrees to start prozac now. Diagnostics Vital Signs (24Hr): Vital Signs - 24 hr 06/12/23 16:17 06/13/23 08:38 Temperature 97.9 F 97.9 F Pulse Rate 90 63 Respiratory Rate 16 Blood Pressure 147/86 H 127/73 Pulse Oximetry 97 97 Oxygen Delivery Method Room Air Room Air BMI result Body Mass Index 29.7 Labs 06/10/23 20:11 06/10/23 20:11 Medications Medications Current Medications Acetaminophen (Acetaminophen 325 Mg Tablet) 650 mg PO Q6H PRN PRN Reason: Headache/Pain Mild Scale (1-3) Last Admin: 06/12/23 14:22 Dose: 650 mg Al Hydroxide/Mg Hydroxide (Magnesium Hydrox/Alum Hydrox 30 Ml Oral.Susp) 30 ml PO Q6H PRN PRN Reason: Heartburn/Nausea Hydroxyzine HCl (Hydroxyzine Hcl 25 Mg Tablet) 25 mg PO Q6H PRN PRN Reason: Anxiety Country Walk Carbonate (Country Walk Carbonate Er 450 Mg Tablet.Er) 900 mg PO BEDTIME [facility] Last Admin: 06/12/23 19:55 Dose: 900 mg Lorazepam (Lorazepam 1 Mg Tablet) 2 mg PO BID YOLIS Last Admin: 06/13/23 08:56 Dose: 2 mg Magnesium Hydroxide (Milk Of Magnesia 30 Ml Oral.Susp) 30 ml PO DAILY PRN PRN Reason: Constipation Nicotine Polacrilex (Nicotine Polacrilex 2 Mg Gum) 4 mg BUCCAL Q2H PRN PRN Reason: Nicotine Cravings Last Admin: 06/13/23 09:32 Dose: 4 mg Olanzapine (Olanzapine 5 Mg Tablet) 5 mg PO TID PRN PRN Reason: agitation Quetiapine Fumarate (Quetiapine Fumarate 50 Mg Tablet) 50 mg PO DAILY PRN PRN Reason: AGITATION Quetiapine Fumarate (Quetiapine Fumarate 300 Mg Tablet) 300 mg PO BEDTIME YOLIS Last Admin: 06/12/23 19:57 Dose: 300 mg Trazodone HCl (Trazodone Hcl 50 Mg Tablet) 50 mg PO BEDTIME MRX1 PRN PRN Reason: Insomnia Last Admin: 06/12/23 19:56 Dose: 50 mg Allergies Allergies Allergy/AdvReac Type Severity Reaction Status Date / Time Penicillins [PCN] Allergy Rash Verified 09/05/22 10:19 Assessment & Plan Assessment & Plan (1) Major depressive disorder, recurrent severe without psychotic features: Status: Acute Code(s): F33.2 - Major depressive disorder, recurrent severe without psychotic features (2) OCD (obsessive compulsive disorder): Status: Acute Code(s): F42.9 - Obsessive-compulsive disorder, unspecified (3) Alcohol use disorder, severe, in sustained remission: Status: Acute Code(s): F10.21 - Alcohol dependence, in remission Plan Patient is a 42 year old male with hx of MDD and multiple inpatient psychiatric hospitalizations who self presented to [facility] ER d/t suicidal ideation with no plan, secondary to increased depression. hospital course: 06/13 Pt shared about recent hx leading up to admission; his intrusive thoughts were worse last week, with thought that he did not love his kids; he had thoughts about ending his life and drove by a park where he's imagined he would attempt, but he reports there was no intent or increase in frequency of his chronic SI thoughts that occur about 2x per. Pt came to ED but did not really think he needed inpt admission since has outpt provider and has plans to try Prozac and perhaps Esketamine. He wanted to discuss whether ECt remains an option. Building Custodian reviewed chart and pt had 4 trials, but 5th was cancelled due to hypertension. Not sure at this time if re-trial is option. Pt has 3 day notice in due tomorrow. He is asking for discharge, wanting to go to his daughters [place] meet and feeling he is well taken care of by outpt psychiatrist. agrees to start prozac now. -screenplay writer discussed with outpt provider who agrees with plan -pt is at baseline which includes chronic, intermittent SI; no intent, future oriented. -pt not in imminent risk of harm to self or others and request for discharge honored. Plan: 3 day 15 minute safety checks start Prozac 10mg Continue home medications Patient educated on: diagnosis, medication risk/benefits, ECT and TMS Informed Consent: understands Reason for continued inpatient stay Substantial Risk for: stable for discharge Time Spent With Patient Time: Total time managing care of this patient today ____ minutes.
[2023-06-13] MEDS: FLUoxetine HCl 10 MG CAPSULE PO (14:51)
[2023-06-13 16:18] VITALS: PULSE 89; TEMP 36.7; O2SAT 94
--- NOTE | 2023-06-13 20:21 | PM.PSYDC ---
DS: Providers Provider Date of Service: 06/14/23 Date of admission: 06/11/23 16:47 Date of discharge: 06/14/23 Primary care physician: None Physician Attending physician on discharge: Robbi Bonilla DS: Diagnosis Discharge Diagnosis (1) Major depressive disorder, recurrent severe without psychotic features: Status: Acute (2) OCD (obsessive compulsive disorder): Status: Acute (3) Alcohol use disorder, severe, in sustained remission: Status: Acute DS: Medications Discharge Medications Home Medications: Home Medications Medication Instructions Recorded Confirmed lithium carbonate 450 mg 900 mg PO BEDTIME 09/05/22 06/10/23 tablet,extended release quetiapine 300 mg tablet,extended 300 mg PO BEDTIME 06/10/23 06/10/23 release 24 hr Previous Rx's Medication Instructions Recorded fluoxetine 10 mg capsule 10 mg PO DAILY #0 caps 06/13/23 lorazepam 2 mg tablet 2 mg PO BID 30 days #60 tabs 06/13/23 nicotine (polacrilex) 4 mg gum 4 mg buccal Q2H 30 days #100 ea 06/13/23 quetiapine 100 mg tablet 50 mg (1/2 x 100 mg) PO DAILY PRN 06/13/23 anxiety #30 tabs Data Data Completed and Pending Completed studies during hospitalization [Text1]: 06/10/23 06/10/23 20:11 20:12 WBC 9.5 RBC 5.46 Hgb 17.1 Hct 48.1 MCV 88.1 MCH 31.3 MCHC 35.6 RDW 11.5 Plt Count 224 D MPV 9.7 Immature Gran % (Auto) 0.4 Neut % (Auto) 65.3 Lymph % (Auto) 26.1 [place] % (Auto) 5.9 Eos % (Auto) 1.8 Baso % (Auto) 0.5 Lymph # (Auto) 2.5 [place] # (Auto) 0.6 Eos # (Auto) 0.2 Baso # (Auto) 0.1 Abs Immat Gran (auto) 0.04 H Absolute Neuts (auto) 6.2 Absolute Nucleated RBC 0.000 Nucleated RBC % (auto) 0.0 Sodium 140 Potassium 3.8 Chloride 107 Carbon Dioxide 25 Anion Gap 12 BUN 13 Creatinine 0.86 Estim Creat Clear Calc 134.0 Estimated GFR > 60 Random Glucose 94 Calcium 9.6 Total Bilirubin 0.4 AST 26 ALT 45 H Alkaline Phosphatase 90 Total Protein 7.7 Albumin 4.7 Urine Color Yellow Urine Appearance Clear Urine pH 6.0 Ur Specific [place] 1.020 Urine Protein Negative Urine Glucose (UA) Negative Urine Ketones Negative Urine Blood Trace Urine Nitrite Negative Ur Leukocyte Esterase Negative Urine RBC 0-2 Urine WBC 0-5 Ur Squamous Epith Cells 0-2 Urine Bacteria None Seen Hyaline Casts 0-2 Salicylates < 5.0 L Urine Opiates Screen Not Detected Urine Fentanyl Screen Not Detected Acetaminophen < 3 Ur Barbiturates Screen Not Detected Ur Phencyclidine Scrn Not Detected Ur Amphetamines Screen Not Detected U Benzodiazepines Scrn Not Detected [place] 0.34 L Urine Cocaine Screen Not Detected U Marijuana (THC) Screen Not Detected Ethyl Alcohol < 10 COVID-19 (LEA) Negative COVID-19 Clin Com See Note DS: Summary Hospital Course Hospital Course: Patient is a 42 year old male with hx of MDD and multiple inpatient psychiatric hospitalizations who self presented to [facility] d/t suicidal ideation with no plan, secondary to increased depression. HX Pt reports since his last inpatient hospitalizations in July 2022,got ECT during his admission to in July 2022; his symptoms have persisted but increased over the past month. Patient reports suicidal ideation to hook a hose to his car exhaust or jump off a high rise at his job. Started TMS in May 2023, has completed 27 weeks of treatment without improvement in his mood. During admission assessment, pt presents calm, cooperative and pleasant. Patient reports continued depressive symptoms; pt stated, this started a year ago, I went inpatient at [facility], did PHP which didn't help then came inpatient and did ECT but only did 2 treatments because my blood pressure was too high. 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 It triggered something going into the half-way. I also had taken a side job which a leak occurred in the basement. Now I'm worried about making a mistake. I'm having financial stress . Denies any substance use. Patient sober from ETOH for the past 4-5 years. Lives with his partner and their 4 children (Ages: 11,13,15,16). Past Psychiatric History: Med trials: [place], Viibryd, Zoloft, BuSpar, Wellbutrin, Cymbalta multiple other meds, cannot recall names. IP: multiple. PHP: through [facility] Outpt: Dr.Giles Therapist: Has tried 27 weeks of TMS without result. HX of 2 rounds of ECT, pt reports they did not continue with more d/t hypertension. hospital course: 06/13 Pt shared about recent hx leading up to admission; his intrusive thoughts were worse last week, with the unwanted/untrue thought that he did not love his kids; he had thoughts about ending his life and drove by a park where he's imagined he would attempt, but he reports there was no intent. He also says there was no increase in the frequency of his chronic SI thoughts. Pt came to ED but did not really think he needed inpt admission since has outpt provider and has plans to try Prozac and perhaps Esketamine. He wanted to discuss whether ECt remains an option. Bosom Presser reviewed chart and pt had 4 trials, but 5th was cancelled due to hypertension. Not sure at this time if re-trial is option. -Started on Prozac -Although he self presented, on getting to unit, pt felt well enough and placed a 3 day notice -Pt has 3 day notice in due tomorrow. He is asking for discharge, wanting to go to his daughters [place] meet and feeling he is well taken care of by outpt psychiatrist. agrees to start prozac now. -health technical writer discussed with outpt provider who agrees with plan -pt is at baseline which includes chronic, intermittent SI; no intent, future oriented and pt able to ignore. -pt not in imminent risk of harm to self or others and request for discharge honored. Time spent discussing smoking cessation with patient: 3 to 10 minutes Status at Discharge Functional status at discharge: independent ambulation Overall status at discharge: patient is back to baseline Time Spent with Patient Time attestation: Total time managing care of this patient today ____ minutes. Time spent: Less than 30 minutes Discharge Plan Discharge Anticipated Discharge Date/Time: 06/14/23 11:00 Patient Disposition: Home, Self-Care Discharge Diagnosis: OCD Referrals: Dr. Goldberg, PhD (therapist) [Other] - 1 Week (Hospital Discharge Appointment Patient will follow-up with outpatient therapist after discharge to schedule appointment. ) Dr. Skaggs: [facility] Psychiat[facility] [Other] - 06/18/23 10:20 am (Hospital discharge appointment Appointment in office) Eliseo Hull MD [Physician] - 1 Week Discharge Medications: New fluoxetine 10 mg Capsule 10 mg PO DAILY Qty: 0 0RF nicotine (polacrilex) 4 mg gum 4 mg buccal Q2H 30 Days Qty: 100 0RF Continued quetiapine 300 mg tablet extended release 24 hr 300 mg PO BEDTIME lorazepam 2 mg tablet 2 mg PO BID 30 Days Qty: 60 0RF lithium carbonate 450 mg tablet extended release 900 mg PO BEDTIME Changed quetiapine 100 mg tablet 50 mg PO DAILY PRN (Reason: anxiety) Qty: 30 0RF Discharge Orders: Discharge Order (Routine); Ordered 06/14/23 Ordered By: Robbi Bonilla Diet: Regular diet Activity on Discharge: As tolerated Stand Alone Forms: Patient Portal Discharge page, Community Support Care Plan Goals: Maintain mood and safe behaviors Take medications as prescribed Practice coping skills Continue with outpatient providers and reach out to them as needed Health Concerns: Mood stability and behaviors Plan of Treatment: Follow up with your PCP, psychiatric provider and other outpatient providers regarding above concerns Take medications as prescribed Assessment: Risk assessment at time of discharge:? Patient was interviewed prior to discharge and found to be fully oriented and without any SI or HI. Patient has improved insight and judgment and wants to continue treatment. Patient is not in imminent risk of harm to self or others and has a safety plan that includes presenting to the closest ER or calling 911 if feeling unsafe.? Patient has been observed closely by nursing and unit staff throughout admission; patient has not engaged in any behaviors that suggest dangerousness to self or others and has demonstrated appropriate behaviors and impulse control Discharge Date/Time: 06/14/23 11:37
[2023-06-13] MEDS: Lithium Carbonate ER 450 MG TABLET.ER 900 MG PO (20:33)
[2023-06-13] MEDS: traZODone HCL 50 MG TABLET PO (20:33)
[2023-06-13] MEDS: QUEtiapine Fumarate 300 MG TABLET PO (20:33)
[2023-06-14 08:00] VITALS: BP 106/58; PULSE 68; RESP 16; TEMP 36.8; O2SAT 96
[2023-06-14] MEDS: FLUoxetine HCl 10 MG CAPSULE PO (08:58)
[2023-06-14] MEDS: LORazepam 1 MG TABLET 2 MG PO (08:58)
[2023-06-14] MEDS: Nicotine Polacrilex 2 MG GUM 4 MG BUCCAL (09:28)
== END 2023-06-14 11:37 | disposition home or self-care (01) | DRG 751 ==
LOC: HO.ED 06-11 07:27 → HO.PM5 06-11 16:53
PROVIDERS: Physician Assistant Medical; Admitting Provider Psychiatry & Neurology Psychiatry; Emergency Provider Student in an Organized Health Care Education/Training Program; Visit Provider Psychiatry & Neurology Psychiatry
DX: F33.2 Major depressive disorder, recurrent severe without psychotic features (principal); F10.21 Alcohol dependence, in remission; F17.210 Nicotine dependence, cigarettes, uncomplicated; Z20.822 Contact with and (suspected) exposure to COVID-19; Z71.6 Tobacco abuse counseling; F42.9 Obsessive-compulsive disorder, unspecified; Z79.899 Other long term (current) drug therapy
CPT/HCPCS: 36415; 80053; 80143; 80178; 80179; 80307; 81001; 85025; 87635; 93005; 99285; S9485

== ENCOUNTER → 2023-06-10 19:17 | Outpatient (BNV) | payer OTHER, SELFPAY | PROVIDERS: Emergency Provider Student in an Organized Health Care Education/Training Program; Visit Provider Internal Medicine | DX: R94.31 Abnormal electrocardiogram [ECG] [EKG] (principal) | CPT/HCPCS: 93010 ==

== ENCOUNTER → 2023-06-11 16:47 | Outpatient (BNV) | payer OTHER, SELFPAY | PROVIDERS: Admitting Provider Psychiatry & Neurology Psychiatry; Emergency Provider Student in an Organized Health Care Education/Training Program; Visit Provider Registered Nurse | DX: F33.2 Major depressive disorder, recurrent severe without psychotic features (principal); F10.21 Alcohol dependence, in remission; F42.9 Obsessive-compulsive disorder, unspecified | CPT/HCPCS: 90792; 99232; 99238 ==

== ENCOUNTER 2024-02-10 15:10 | Outpatient (AMB) | payer OTHER, SELFPAY ==
--- NOTE | 2024-02-10 15:13 | MHC.OFFVIS ---
Vital Signs 02/10/24 15:14 Height 5 ft 11 in Weight 217 lb 2.485 oz BMI 30.3 BP 120/82 Blood Pressure Location Rt brachial Position Sitting Pulse 87 Pulse Source Pulse Oximeter Pulse Oximetry (%) 97 Oxygen Delivery Method Room Air Intake Visit Reasons: Shortness of breath Allergies Penicillins [PCN] Allergy (Verified 02/10/24 15:18) Rash HPI HPI Shortness of breath: Details: Bashir is a pleasant 43 year old male, never smoker, with underlying HTN, HLD, environmental allergies, anxiety, and severe depression. He was referred by PCP for pulmonary evaluation. He reports since hypertensive crisis while undergoing ECT last year, he has had symptoms of sudden onset dyspnea and chest discomfort. He denies prior history of DVT/PE. He has been evaluated in the ED on several occasions, with no significant findings. No records to review. He underwent cardiac evaluation with echo, holter, and stress test reportedly unremarkable. These were through [facility]. He denies prior history of asthma. He reports symptoms wax and wane, he does endorse significant anxiety and family stressors. Notes when stress is prevalent symptoms tend to occur. 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 He denies any pertinent family history. Of note, patient states he is a never smoker, however referral notes nicotine use in the form of pouches. [facility] Medical History Routine medical exam OCD (obsessive compulsive disorder) Alcohol use disorder, severe, in sustained remission Major depressive disorder, recurrent severe without psychotic features Abdominal hernia No known health problems Family History Maternal Grandfather Myocardial infarction Social History Household Members: Significant Other and Children Housing: House Do you presently have visiting nurse or other home services: No Alcohol intake: never Patient Tobacco Use Status: Current everyday Tobacco user Tobacco use type: Smokeless Tobacco e-Cigarette/Vaping Use: Never Used Second Hand Smoke Exposure: No service: No Current occupational status: other Sexual orientation: Straight/Heterosexual Review of Systems Const Denies chills, Denies excessive sweating, Denies fever(s), Denies headache(s) and Denies night sweats Eyes Denies dry eyes, Denies irritation and Denies itchy eyes ENT Reports Normal hearing present, Denies headache(s), Denies nasal congestion, Denies nasal discharge, Denies post nasal drip and Denies sore throat Card Denies claudication, Denies leg edema, Denies orthopnea and Denies paroxysmal nocturnal dyspnea Resp Denies chest congestion, Denies cough, Denies excessive phlegm production, Denies pain on inspiration, Denies pain with cough, Denies stridor and Denies wheezing Musc Denies myalgias Neuro Reports Normal hearing present and Denies headache(s) Endo Denies excessive sweating Erick/Lymph Denies lymphadenopathy Aller/Immun Denies itchy eyes, Denies seasonal rhinorrhea and Denies wheezing Physical Exam Vital Signs: Last Vital Signs Pulse 87 02/10/24 15:14 BP 120/82 02/10/24 15:14 Pulse Ox 97 02/10/24 15:14 Oxygen Delivery Method Room Air 02/10/24 15:14 BMI result Body Mass Index 30.3 Const General: cooperative, healthy appearing, comfortable, no acute distress, well developed and alert Nutritional Appearance: obese Orientation/consciousness: patient oriented x3 Limitations: no limitations HEENT Head: Yes normal to inspection, Yes normocephalic and Yes atraumatic Ears: hearing grossly normal bilaterally and external ears normal Eyes General: appearance normal, both eyes and all related structures Eyelids: Yes eyelids normal Sclerae: sclerae normal EOM: EOMs intact bilaterally Neck Neck: Yes normal visual inspection and Yes no lymphadenopathy Lymphatic: no lymphadenopathy noted Chest Chest palpation & inspection: normal inspection of the chest Resp Effort & Inspection: normal respiratory effort, able to speak in complete sentences, no audible wheezes, no cough, no stridor, not tachypneic, no tripod positioning and no use of accessory muscles Auscultation: clear to auscultation bilaterally Cardio Jugular venous distension: no JVD Rate: regular rate Rhythm: regular rhythm Skin Other: warm, dry General skin exam: no rashes or lesions noted Neuro General: patient oriented x3 Cranial nerves: Yes Normal hearing present Cognition (Neuro): normal cognition Gait exam (Neuro): Normal gait present Extrem General: Yes normal to inspection, Yes capillary refill normal, Yes no clubbing, cyanosis or edema and Yes no pedal edema Psych Appearance: grossly normal and well kempt Speech and movement: Normal speech and movement present and Clear speech present Affect: normal affect Attitude: cooperative Thought process: Normal thought process present Thought content: Normal thought content present Insight: Good insight present (Psych) Judgement: Good judgement present (Psych) Assessment & Plan Assessment & Plan (1) Dyspnea: Code(s): R06.00 - Dyspnea, unspecified Category: Medical (2) Chest pain: Code(s): R07.9 - Chest pain, unspecified Category: Medical Plan Bashir presents for pulmonary evaluation for ongoing dyspnea and chest pain. Will send for ddimer, although low suspicion for PE. Will request prior ED evaluation and cardiac work up. There is likely a significant anxiety component, however will send for PFT to assess for any obstructive defect contributing to symptoms. All questions were answered and patient is in agreement of plan. Will follow up in 4 weeks to review records. Orders: Orders D Dimer High Sensitivity 02/10/24 R07.9 - Chest pain, unspecified PFT pulmonary function test Today R06.00 - Dyspnea, unspecified Coding Level of Care Code New Pt Level 4 (03300) Diagnoses Dyspnea R06.00 Chest pain R07.9
[2024-02-10 15:14] VITALS: BP 120/82; PULSE 87; O2SAT 97; BMI 30.3
== END 2024-02-10 16:03 | disposition home or self-care (01) ==
PROVIDERS: PCP Internal Medicine; Referring Provider Internal Medicine; Visit Provider Nurse Practitioner Family
DX: R06.00 Dyspnea, unspecified (principal); R07.9 Chest pain, unspecified
CPT/HCPCS: 99204

== ENCOUNTER → 2024-02-10 15:10 | Outpatient (BNVA) | payer OTHER, SELFPAY | PROVIDERS: PCP Internal Medicine; Referring Provider Internal Medicine; Visit Provider Nurse Practitioner Family ==

== ENCOUNTER 2024-03-16 15:42 | Outpatient (AMB) | payer OTHER, SELFPAY ==
[2024-03-16 16:09] VITALS: BP 128/92; PULSE 75; O2SAT 97; BMI 30.6
--- NOTE | 2024-03-16 16:09 | A.OFFVIS_ITS ---
Vital Signs 03/16/24 16:09 Height 5 ft 11 in Weight 219 lb 5.759 oz BMI 30.6 BP 128/92 H Blood Pressure Location Rt brachial Position Sitting Pulse 75 Pulse Source Pulse Oximeter Pulse Oximetry (%) 97 Oxygen Delivery Method Room Air Intake Visit Reasons: Shortness of breath Allergies Penicillins [PCN] Allergy (Verified 03/16/24 16:13) Rash HPI HPI Shortness of breath: Details: Bashir is a pleasant 43 year old male, never smoker, with underlying HTN, HLD, environmental allergies, anxiety, and severe depression. He reported since hypertensive crisis while undergoing ECT last year, he has had symptoms of sudden onset dyspnea and chest discomfort. He denies wheezing or cough. He has been evaluated in the ED on several occasions, with no significant findings. He underwent cardiac evaluation with echo, holter, and stress test reportedly unremarkable. He was offered right heart cath but deferred. He continues to report symptoms wax and wane, he does endorse significant anxiety and family stressors. Notes when stress is prevalent symptoms tend to occur. He did note that his doses of lorazepam have been tapering and has had less frequent episodes. He denies any visits to urgent care or hospitalizations since last visit. [facility] Medical History Routine medical exam OCD (obsessive compulsive disorder) Alcohol use disorder, severe, in sustained remission Major depressive disorder, recurrent severe without psychotic features Abdominal hernia No known health problems Family History Maternal Grandfather Myocardial infarction Social History Household Members: Significant Other and Children Housing: House Do you presently have visiting nurse or other home services: No Alcohol intake: never Patient Tobacco Use Status: Current everyday Tobacco user Tobacco use type: Smokeless Tobacco e-Cigarette/Vaping Use: Never Used Second Hand Smoke Exposure: No service: No Current occupational status: other Sexual orientation: Straight/Heterosexual Review of Systems Const Denies chills, Denies excessive sweating, Denies fever(s), Denies headache(s) and Denies night sweats Eyes Denies dry eyes, Denies irritation and Denies itchy eyes ENT Reports Normal hearing present, Denies headache(s), Denies nasal congestion, Denies nasal discharge, Denies post nasal drip and Denies sore throat Card Denies claudication, Denies leg edema, Denies orthopnea and Denies paroxysmal nocturnal dyspnea Resp Denies chest congestion, Denies cough, Denies excessive phlegm production, Denies pain on inspiration, Denies pain with cough, Denies stridor and Denies wheezing Musc Denies myalgias Neuro Reports Normal hearing present and Denies headache(s) Endo Denies excessive sweating Erick/Lymph Denies lymphadenopathy Aller/Immun Denies itchy eyes, Denies seasonal rhinorrhea and Denies wheezing Physical Exam Vital Signs: Last Vital Signs Pulse 75 03/16/24 16:09 BP 128/92 H 03/16/24 16:09 Pulse Ox 97 03/16/24 16:09 Oxygen Delivery Method Room Air 03/16/24 16:09 BMI result Body Mass Index 30.6 Const General: cooperative, healthy appearing, comfortable, no acute distress, well developed and alert Orientation/consciousness: patient oriented x3 Limitations: no limitations HEENT Head: Yes normal to inspection, Yes normocephalic and Yes atraumatic Ears: hearing grossly normal bilaterally and external ears normal Eyes General: appearance normal, both eyes and all related structures Eyelids: Yes eyelids normal Sclerae: sclerae normal EOM: EOMs intact bilaterally Neck Neck: Yes normal visual inspection and Yes no lymphadenopathy Lymphatic: no lymphadenopathy noted Chest Chest palpation & inspection: normal inspection of the chest Resp Effort & Inspection: normal respiratory effort, able to speak in complete sentences, no audible wheezes, no cough, no stridor, not tachypneic, no tripod p ositioning and no use of accessory muscles Auscultation: clear to auscultation bilaterally Cardio Jugular venous distension: no JVD Rate: regular rate Rhythm: regular rhythm Skin Other: warm, dry General skin exam: no rashes or lesions noted Neuro General: patient oriented x3 Cranial nerves: Yes Normal hearing present Cognition (Neuro): normal cognition Gait exam (Neuro): Normal gait present Extrem General: Yes normal to inspection, Yes capillary refill normal, Yes no clubbing, cyanosis or edema and Yes no pedal edema Psych Appearance: grossly normal and well kempt Speech and movement: Normal speech and movement present and Clear speech present Affect: normal affect Attitude: cooperative Thought process: Normal thought process present Thought content: Normal thought content present Insight: Good insight present (Psych) Judgement: Good judgement present (Psych) Assessment & Plan Assessment & Plan (1) Dyspnea: Code(s): R06.00 - Dyspnea, unspecified Category: Medical (2) Chest pain: Code(s): R07.9 - Chest pain, unspecified Category: Medical Plan Bashir continues to report intermittent dyspnea on exertion and chest discom fort. He was sent for ddimer at last visit, however lab results were never sent to office. Will request. Low suspicion for PE. There is likely a significant anxiety component contributing to symptoms, and again discussed PFT however patient would like to hold off at this time. Reviewed prior CXR and EKG 10/29 which were unremarkable. He is aware if symptoms become more persistent to seek emergent care. All questions were answered and patient is in agreement of plan. At this time, he would like to continue monitoring symptoms as he tapers lorazepam. Offered albuterol to trial however declined. Will follow up PRN. Coding Level of Care Code Est Pt Level 3 (92767) Diagnoses Dyspnea R06.00 Chest pain R07.9
== END 2024-03-16 16:58 | disposition home or self-care (01) ==
PROVIDERS: PCP Internal Medicine; Visit Provider Nurse Practitioner Family
DX: R06.00 Dyspnea, unspecified (principal); R07.9 Chest pain, unspecified
CPT/HCPCS: 99213

== ENCOUNTER → 2024-03-16 15:42 | Outpatient (BNVA) | payer OTHER, SELFPAY | PROVIDERS: PCP Internal Medicine; Visit Provider Nurse Practitioner Family ==